=== PATIENT | female | born 1995 | race Caucasian/White ===

== ENCOUNTER 2019-12-19 13:51 | Outpatient (RCR) | payer OTHER, SELFPAY | END 2020-03-04 11:36 | disposition home or self-care (01) | LOC: ANHDMC 13:51 | PROVIDERS: PCP Pediatrics; Visit Provider Nurse Practitioner Family | DX: E11.65 Type 2 diabetes mellitus with hyperglycemia (principal); Z71.89 Other specified counseling | CPT/HCPCS: G0108 ==

== ENCOUNTER → 2020-09-04 03:24 | Outpatient (CLI) | payer OTHER, SELFPAY ==
[2020-09-04 18:26] LABS: SARS-CoV-2 RNA PCR Negative
== END ==
PROVIDERS: PCP Nurse Practitioner Family; Visit Provider Obstetrics & Gynecology
DX: Z01.812 Encounter for preprocedural laboratory examination (principal); Z20.822 Contact with and (suspected) exposure to COVID-19
CPT/HCPCS: C9803; U0003; U0005

== ENCOUNTER 2020-09-06 01:49 | Day surgery (SDC) | payer OTHER, BC, SELFPAY ==
[2020-09-03 12:28] VITALS: BMI 32.9
--- NOTE | 2020-09-06 11:10 | ECG_ITS ---
Measurements Intervals [place] Rate: 85 P: 25 CT: 126 QRS: 61 QRSD: 74 T: -4 QT: 369 QTc: 440 Interpretive Statements SINUS RHYTHM LOW QRS VOLTAGE IN PRECORDIAL LEADS BORDERLINE ST-T WAVE ABNORMALITY- ANT/INF LEADS BASELINE ARTIFACT- I, II, III, AVR, AVL, AVF, V1-V2 BORDERLINE ECG Electronically Signed On 09-06-2020 11:47:30 CDT by Jesus Reilly D.O.
[2020-09-06 11:14] VITALS: BMI 32.5
[2020-09-06 11:15] VITALS: BP 120/70; PULSE 92; RESP 16; TEMP 36.6; O2SAT 100
[2020-09-06] MEDS: LACTATED RINGERS 1,000 ML 30 ML IV CONT (11:32)
[2020-09-06] MEDS: ACETAMINOPHEN 500 MG TABLET 1000 MG PO (11:43)
[2020-09-06 12:04] LABS: Anion Gap 6 mmol/L (8-16); Blood Urea Nitrogen 6 mg/dL (7-17); Calcium 9.6 mg/dL (8.4-10.2); Carbon Dioxide 26 mmol/L (22-30); Chloride 106 mmol/L (98-107); Estimated Glomerular Filt Rate > 60; Glucose 105 mg/dL (65-105); Potassium 3.8 mmol/L (3.4-5.0); Sodium 138 mmol/L (137-145)
--- NOTE | 2020-09-06 12:21 | P.PNAN_ITS ---
Anes - Initial Pre Proc Eval Procedure: Operation Date: 09/06/20 13:00 Proposed Procedures p Suction Dilatation and Curettage - Mallory Abdalla MD Date/Time: 09/06/20 12:21 Surgeon: Mallory Abdalla MD Pre Op Diagnosis: missed AB Patient Data Age: 25 Gender: F Height: 4 ft 11 in Weight: 73.2 kg Last Vital Signs Temp 36.6 C 09/06/20 11:15 Pulse 92 09/06/20 11:15 Resp 16 09/06/20 11:15 BP 120/70 09/06/20 11:15 Pulse Ox 100 09/06/20 11:15 Allergies Allergy/AdvReac Type Severity Reaction Status Date / Time No Known Allergies Allergy Verified 09/06/20 11:02 Home Medications Medication Instructions Recorded Confirmed Type metformin 500 mg PO DAILY 09/03/20 09/06/20 History Laboratory Tests 09/06/20 11:35 Sodium 138 mmol/L mmol/L (137-145) Potassium 3.8 mmol/L mmol/L (3.4-5.0) Chloride 106 mmol/L mmol/L (98-107) Carbon Dioxide 26 mmol/L mmol/L (22-30) Anion Gap 6 mmol/L L mmol/L (8-16) BUN 6 mg/dL L mg/dL (7-17) Creatinine 0.50 mg/dL L mg/dL (0.7-1.0) Estim Creat Clear Calc Not Reportable Estimated GFR > 60 (59 - ) Glucose 105 mg/dL mg/dL (65-105) Calcium 9.6 mg/dL mg/dL (8.4-10.2) Patient hx anesthesia problems: none Family hx anesthesia problems: none [facility] Past Medical History Medical History (Updated 09/06/20 @ 12:21 by George Barajas MD) Missed ab Obesity Social History Social History Smoking status: Never smoker Alcohol intake: never Substance use: never Substance use type: does not use Living arrangements: with family Spiritual care concerns: No Anes - Eval Final PreProcedure Day of Procedure 09/06/20 12:21 Patient weight: obese Heart: regular rate and rhythm Lungs: clear to auscultation Airway: Mallampati scale class II Neurological: alert and oriented Last oral intake: >/= 8 hours ASA classification: II Emergent: no Anesthetic plan: proceed Anesthesia type and monitoring: general GIVS and standard monitoring Informed Consent: The patient's anesthetic plan and its attendant risks and benefits were discussed with the patient/family/POA. Questions were solicited and answers provided to the satisfaction of the patient/family/POA.
--- NOTE | 2020-09-06 12:53 | P.HP_ITS ---
H&P: HPI History of Present Illness Date/Time: 09/06/20 12:53 Chief Complaint: miscarriage Narrative: Yolanda is a 25yo at 10 weeks by LMP and 6w1d on US this week and last week with no FHT on either. Desires mgt with D and C. Has DM2, metformin. Review of Systems Review of Systems: All systems reviewed & are unremarkable except as noted in HPI and below PMFSH Past Medical History Medical History (Updated 09/06/20 @ 12:21 by George Barajas MD) Missed ab Obesity Social History Social History Smoking status: Never smoker Alcohol intake: never Substance use: never Substance use type: does not use Living arrangements: with family Spiritual care concerns: No Meds Home Medications and Allergies Home Medications Medication Instructions Recorded Confirmed Type metformin 500 mg PO DAILY 09/03/20 09/06/20 History Allergies Allergy/AdvReac Type Severity Reaction Status Date / Time No Known Allergies Allergy Verified 09/06/20 11:02 Vital Signs Vital Signs - 24 hr 09/06/20 11:15 Temperature 97.8 F Pulse Rate 92 Respiratory Rate 16 Blood Pressure 120/70 Pulse Oximetry 100 Exam Const: General: no acute distress Resp: Effort & Inspection: normal respiratory effort Auscultation: clear to auscultation bilaterally Cardio: Rate: regular rate Rhythm: regular rhythm GI: GI Palp: Yes Soft to palpation Extrem: General: normal to inspection H&P: Results Labs Labs: [facility] 09/06/20 11:35 Sodium 138 Potassium 3.8 Chloride 106 Carbon Dioxide 26 BUN 6 L Creatinine 0.50 L Glucose 105 Calcium 9.6 Assessment and Plan Additional Plan Rh pos WIll proceed with suction D and C. Discussed RBA, consented. All questions answered.
--- NOTE | 2020-09-06 12:57 | WPDHPUPDATE1 ---
History and Physical Update Update Date/Time: 09/06/20 12:57 History and Physical has been reviewed, including an updated exam of the patient. There are NO changes in the patient's condition. Risks, benefits, and alternatives have been discussed and questions answered. Patient agrees to proceed with procedure.
[2020-09-06] MEDS: BUPIVACAINE/EPINEPHRINE 0.25% 50 ML VIAL 10 ML INFILTRATE (13:12)
[2020-09-06] MEDS: KETOROLAC 30 MG/ML VIAL (*BKC) IV PUSH (13:14)
[2020-09-06 13:25] VITALS: BP 91/40; PULSE 96; RESP 16; O2SAT 100
--- NOTE | 2020-09-06 13:27 | PM.PROC ---
Procedure Note - Detailed Date of procedure: 09/06/20 Pre-op diagnosis: missed AB Post-op diagnosis: same Procedure performed: suction D and C Description of procedure: The patient was taken to the operating room where she received MAC anesthesia. She was placed in dorsal lithotomy position in stirrups. Exam under anesthesia revealed normal anteverted uterus, 7 week size. She was prepped and draped in normal fashion. A speculum was placed and the cervix was grasped with a single tooth tenaculum. 10cc of lidocaine was instilled in a paracervical block. The cervix was sequentially dilated to accomodate a #7 curved suction curette. Several passes were made until 3 passes obtained no further tissue. The specimen was sent to pathology. The tenaculum was removed and the cervix made hemostatic with pressure. THe speculum was removed. The patient was awakened from anesthesia and taken to the recovery room in good condition. Anesthesia: MAC Surgeon: Mallory Abdalla MD Drains: No Packing: No Pathology: yes Complications: No immediate complications Condition: stable Disposition: same day Findings: EBL 10cc
[2020-09-06 13:41] LABS: Glucose Point of Care 91 (65-105)
[2020-09-06 13:55] VITALS: BP 90/61; PULSE 65; RESP 16
[2020-09-06 14:20] VITALS: BP 103/54; PULSE 77; RESP 16
== END 2020-09-06 14:30 | disposition home or self-care (01) ==
PROVIDERS: Anesthesiology; PCP Nurse Practitioner Family; Visit Provider Obstetrics & Gynecology
PROC: (CPT 59820; principal; 2020-09-06 13:00)
DX: O02.1 Missed abortion (principal); N85.4 Malposition of uterus; Z79.84 Long term (current) use of oral hypoglycemic drugs; E66.9 Obesity, unspecified; Z68.32 Body mass index [BMI] 32.0-32.9, adult
CPT/HCPCS: 59820; 36415; 80048; 82948; 85461; 88305; 93005; A9270; C9803; J1885; J2250; J2405; J2704; J3010; J7120; U0003; U0005

== ENCOUNTER 2021-10-31 06:50 | Inpatient (IN) | payer OTHER, BC, SELFPAY ==
[2021-10-31] VITALS (61 sets, daily range): BP systolic 92–130; BP diastolic 46–91; PULSE 53–120; RESP 12–17; TEMP 36.2–36.8; O2SAT 87–100; BMI 36.8
--- NOTE | 2021-10-31 06:34 | P.PNAN_ITS ---
Anes - Initial Pre Proc Eval Procedure: Operation Date: 10/31/21 09:00 Proposed Procedures p Primary Section - Mallory Abdalla MD Date/Time: 10/31/21 06:34 Surgeon: Mallory Abdalla MD Pre Op Diagnosis: Patient Data Age: 26 Gender: F Height: Weight: Allergies Allergy/AdvReac Type Severity Reaction Status Date / Time No Known Allergies Allergy Verified 09/06/20 11:02 Home Medications Medication Instructions Recorded Confirmed Type metformin 500 mg tablet,extended 1,000 mg PO BID 09/03/20 10/31/21 History release 24 hr insulin NPH isoph U-100 human 100 18 unit subcut HS 10/16/21 10/31/21 History unit/mL subcutaneous suspension (Humulin N NPH U-100 Insulin (isophane susp)) vit no.95-ferrous 1 tablet PO DAILY 10/16/21 10/31/21 History fumarate 28 mg-folic acid 800 mcg tablet () Patient hx anesthesia problems: none Family hx anesthesia problems: none Results Review: All pre-operative results and documents have been reviewed as part of the pre- operative evaluation. [facility] Past Medical History Medical History (Updated 10/31/21 @ 08:40 by Francisco J Carey DO) DM2 (diabetes mellitus, type 2) Missed ab Obesity Family History Family History (Updated 10/16/21 @ 15:27 by Ricco Ndiaye RN) Other No pertinent family history Social History Social History Smoking status: Never smoker Second hand tobacco smoke exposure: No Alcohol intake: never Substance use: never Substance use type: does not use Spiritual care concerns: No Anes - Eval Final PreProcedure Day of Procedure 10/31/21 06:34 Patient weight: obese Heart: regular rate and rhythm Lungs: clear to auscultation and normal air movement Airway: Mallampati scale class II Neurological: alert and oriented Last oral intake: >/= 8 hours ASA classification: III Emergent: no Anesthetic plan: proceed Anesthesia type and monitoring: regional spinal and standard monitoring Results Review: All pre-operative results and documents have been reviewed as part of the pre- operative evaluation. Informed Consent: The patient's anesthetic plan and its attendant risks and benefits were discussed with the patient/family/POA. Questions were solicited and answers provided to the satisfaction of the patient/family/POA.
--- NOTE | 2021-10-31 06:50 | LDADM ---
This patient, Yolanda Troncoso, was admitted to Labor/Delivery/Recovery 119 on 10/31/21 at 06:50. Plans for labor, pain management and were discussed with patient. Patient/family oriented to hospital policies and general routines including ID bracelet, bed and alarms, visiting hours, pain management, procedures, bathroom and other care routines, personal items, smoking policy, room service/diet and guest tray routines, infant security routines, and visiting hours. Patient/Family are encouraged to report perceived risks to care and to ask questions if they do not understand what they are told or what they should do. See OBIX for further documentation.
--- OUTSIDE RECORDS SUMMARY | 2021-10-31 06:57 | XMS_ITS | Encounter Summary ---
:1995 Author Care Team Providers Name Role Phone Briseida Quesada [facility] Primary Care Provider [phone] Reason for Visit NST [id number] EDC 11/14/2021 Assessment and Plan 1. Gestational diabetes mellitus, class A>2< ? non-stress test Discussion Note: None recorded.Patient educational handouts: No information available. Plan of Care Reminders Provider Appointments Surg Post Op 11/05/2021 2:45PM Mallory Abdalla MD Lab None recorded. ? ? Referral None recorded. ? ? Procedures None recorded. ? ? Surgeries None recorded. ? ? Imaging Non-stress Test 10/23/2021 [place] Medications Name Start Date ? ? FreeStyle Nevin 14 Day Sensor kit ? Humulin N NPH U-100 Insulin (isophane susp) 100 unit/m L subcutaneous ? insulin syringe U-100 with needle 1 mL 31 gauge x 5/16 ? metformin ER 500 mg 24 hr tablet,extended release ? Take 1 tablet twice a day by oral route. metformin ER 500 mg tablet,extended release 24 hr ? TAKE 2 TABLET TWICE A DAY 28 mg iron-800 mcg tablet ? Take 1 tablet every day by oral route. Medications Administered None recorded. Vitals Height Weight BMI Blood Pressure 5 ft 182 lbs 35.5 kg/m2 123/81 mm[Hg] Results Lab Results None recorded. Allergies Code Code System Name Reaction Severity Onset NKDA ? ? ? Problems Name Status Onset Date Source ? Pre-existing Type 2 Diabetes Mellitus in Active 08/27/2020 ? Active 05/13/2021 ? Group B Streptococcus Carrier Active 10/24/2021 ? Type 2 Diabetes Mellitus Active ? ?
--- OUTSIDE RECORDS SUMMARY | 2021-10-31 06:57 | XMS_ITS | Encounter Summary ---
:1995 Author Care Team Providers Name Role Phone Briseida Quesada [facility] Primary Care Provider [phone] Reason for Visit None recorded. Assessment and Plan 1. Pre-existing type 2 diabetes mellitu s in ? non-stress test Discussion Note: None recorded.Patient educational handouts: No information available. Plan of Care Reminders Provider Appointments Surg Post Op 11/05/2021 2:45PM Mallory Abdalla MD Lab None recorded. ? ? Referral None recorded. ? ? Procedures None recorded. ? ? Surgeries None recorded. ? ? Imaging Non-stress Test 10/20/2021 [place] Medications Name Start Date ? ? FreeStyle Nevin 14 Day Sensor kit ? Humulin N NPH U-100 Insulin (isophane susp) 100 unit/m L subcutaneous ? insulin syringe U-100 with needle 1 mL 31 gauge x /16 ? metformin ER 500 mg 24 hr tablet,extended release ? Take 1 tablet twice a day by oral route. metformin ER 500 mg tablet,extended release 24 hr ? TAKE 2 TABLET TWICE A DAY 28 mg iron-800 mcg tablet ? Take 1 tablet every day by oral route. Medications Administered None recorded. Vitals Height Weight BMI Blood Pressure 5 ft 184 lbs 35.9 kg/m2 121/78 mm[Hg] Results Lab Results None recorded. Allergies Code Code System Name Reaction Severity Onset NKDA ? ? ? Problems Name Status Onset Date Source ? Pre-existing Type 2 Diabetes Mellitus in Active 08/27/2020 ? Active 05/13/2021 ? Group B Streptococcus Carrier Active 10/24/2021 ? Type 2 Diabetes Mellitus Active ? ?
--- OUTSIDE RECORDS SUMMARY | 2021-10-31 06:57 | XMS_ITS ---
:1995 Author Care Team Providers Name Role Phone YULY ACEVEDO [facility]- Primary Care Provider [phone] Allergies Code Code System Name Reaction Severity Status Onset NKDA ? Medications Name Status Start Date Stop Date ? ? atorvastatin 10 mg tablet Completed ? 2020 FreeStyle Nevin 14 Day Sensor kit Active ? Not available Humulin N NPH U-100 Insulin (isophane susp) 100 Active ? Not available unit/mL subcutaneous insulin syringe U-100 with needle 1 mL 31 gauge Active ? Not available x 09/29 FE 06/05 (28) 1 mg-20 mcg (21)/75 mg (7) tablet Completed 05/18/2019 08/26/2020 TAKE 1 TABLET BY ORAL ROUTE EVERY DAY metformin ER 500 mg 24 hr tablet,extended release Active ? Not available Take 1 tablet twice a day by oral route. metformin ER 500 mg tablet,extended release 24 Active ? Not available hr nitrofurantoin monohydrate/macrocrystals 100 mg Completed ? 06/10/2021 capsule 28 mg iron-800 mcg tablet Active ? Not available Vitamin 27 mg iron-0.8 mg tablet Completed ? 09/02/2020 Problems Name Status Onset Date Source ? Test Negative Unknown 03/13/2015 History Education Unknown 03/13/2015 History Breast Lump Unknown 06/26/[address] Concept Unknown 03/17/[address] Concept Unknown 05/11/2018 History Pre-existing Type 2 Diabetes Mellitus in Active 08/27/2020 ? Uncertain Viability of Unknown 08/27/2020 ? Active 05/13/2021 ? Group B Streptococcus Carrier Active 10/24/2021 ? Type 2 Diabetes Mellitus Active
--- OUTSIDE RECORDS SUMMARY | 2021-10-31 06:57 | XMS_ITS | Encounter Summary ---
:1995 Author Care Team Providers Name Role Phone Briseida Quesada [facility] Primary Care Provider [phone] Reason for Visit OB visit Assessment and Plan 1. Breech presentation ? section (SURG) 2. Pre-existing type 2 diabetes mellitu s in Discussion Note: None recorded.Patient educational handouts: No information available. Plan of Care Reminders Provider Appointments Surg Post Op 11/05/2021 2:45PM Mallory Abdalla MD Lab None recorded. ? ? Referral None recorded. ? ? Procedures None recorded. ? ? Surgeries Section (SURG) 10/31/2021 [facility] [facility] None recorded. ? ? Medications Name Start Date ? ? FreeStyle Nevin 14 Day Sensor kit ? Humulin N NPH U-100 Insulin (isophane susp) 100 unit/m L subcutaneous ? insulin syringe U-100 with needle 1 mL 31 gauge x 09/29 ? metformin ER 500 mg 24 hr [...] Pressure 5 ft 182 lbs 35.5 kg/m2 124/79 mm[Hg] Results Lab Results None recorded. Allergies Code Code System Name Reaction Severity Onset NKDA ? ? ? Problems Name Status Onset Date Source ? Pre-existing Type 2 Diabetes Mellitus in Active 08/27/2020 ? Active 05/13/2021 ?
--- OUTSIDE RECORDS SUMMARY | 2021-10-31 06:57 | XMS_ITS | Encounter Summary ---
:1995 Author Care Team Providers Name Role Phone Briseida Quesada [facility] Primary Care Provider [phone] Reason for Visit NST [id number] EDC 11/14/2021 Assessment and Plan 1. Gestational diabetes mellitus, class A>1< ? non-stress test Discussion Note: None recorded.Patient educational handouts: No information available. Plan of Care Reminders Provider Appointments Surg Post Op 11/05/2021 2:45PM Mallory Abdalla MD Lab None recorded. ? ? Referral None recorded. ? ? Procedures None recorded. ? ? Surgeries None recorded. ? ? Imaging Non-stress Test 10/28/2021 [place] Medications Name Start Date ? ? FreeStyle [...] Pressure 5 ft 182 lbs 35.5 kg/m2 128/78 mm[Hg] Results Lab Results None recorded. Allergies Code Code System Name Reaction Severity Onset NKDA ? ? ? Problems Name Status Onset Date Source ? Pre-existing Type 2 Diabetes Mellitus in Active 08/27/2020 ? Active 05/13/2021 ? Group B Streptococcus Carrier Active 10/24/2021 ? Type 2 Diabetes Mellitus Active ? ?
--- OUTSIDE RECORDS SUMMARY | 2021-10-31 06:57 | XMS_ITS | Encounter Summary ---
:1995 Author Care Team Providers Name Role Phone Briseida Quesada [facility] Primary Care Provider [phone] Reason for Visit None recorded. Assessment and [...] None recorded. ? ? Imaging Non-stress Test 10/17/2021 [place] Medications Name Start Date ? ? FreeStyle [...] oral route. Medications Administered None recorded. Vitals None recorded. Results Lab Results None recorded. Allergies Code Code System Name Reaction Severity Onset NKDA ? ? ? Problems Name Status Onset Date Source ? Pre-existing Type 2 Diabetes Mellitus in Active 08/27/2020 ? Active 05/13/2021 ? Group B Streptococcus Carrier Active 10/24/2021 ? Type 2 Diabetes Mellitus Active ? ? Breech Presentation Active ? ? Marginal Insertion of Umbilical Cord Active ? ?
--- OUTSIDE RECORDS SUMMARY | 2021-10-31 06:57 | XMS_ITS | Encounter Summary ---
:1995 Author Care Team Providers Name Role Phone Briseida Quesada [facility] Primary Care Provider [phone] Reason for Visit OB visit Assessment and Plan 1. Breech presentation 2. Pre-existing type 2 diabetes mellitu s in Discussion Note: None recorded.Patient educational handouts: No information available. Plan of Care Reminders Provider Appointments Surg Post Op 11/05/2021 2:45PM Mallory Abdalla MD Lab None recorded. ? ? Referral None recorded. ? ? Procedures None recorded. ? ? Surgeries None recorded. ? ? Imaging None recorded. ? ? Medications Name [...] Pressure 5 ft 184 lbs 35.9 kg/m2 116/77 mm[Hg] Results Lab Results None recorded. Allergies Code Code System Name Reaction Severity Onset NKDA ? ? ? Problems Name Status Onset Date Source ? Pre-existing Type 2 Diabetes Mellitus in Active 08/27/2020 ? Active 05/13/2021 ? Group B Streptococcus Carrier Active 10/24/2021 ? Type 2 Diabetes Mellitus Active ? ?
--- OUTSIDE RECORDS SUMMARY | 2021-10-31 06:57 | XMS_ITS | Encounter Summary ---
:1995 Author Care Team Providers Name Role Phone Briseida Quesada [facility] Primary Care Provider [phone] Reason for Visit None recorded. Assessment and Plan 1. Marginal insertion of umbilical cord ? US, obstetric, follow-up Discussion Note: None recorded.Patient educational handouts: No information available. Plan of Care Reminders Provider Appointments Surg Post Op 11/05/2021 2:45PM Mallory Abdalla MD Lab None recorded. ? ? Referral None recorded. ? ? Procedures None recorded. ? ? Surgeries None recorded. ? ? Imaging US, Obstetric, 10/20/2021 [place] Follow-up Medications Name Start Date ? ? FreeStyle [...] ? Breech Presentation Active ? ? Marginal [place]
--- OUTSIDE RECORDS SUMMARY | 2021-10-31 06:57 | XMS_ITS | Encounter Summary ---
:1995 Author Care Team Providers Name Role Phone Briseida Quesada [facility] Primary Care Provider [phone] Reason for Visit OB visit and pre-op Assessment and Plan 1. Pre-existing type 2 diabetes mellitu s in ? glucose, blood Discussion Note: None recorded.Patient educational handouts: No information available. Plan of Care Reminders Provider Appointments Surg Post Op 11/05/2021 2:45PM Mallory Abdalla MD Lab Glucose, Blood 10/28/2021 [facility] (Lab) Referral None recorded. ? ? Procedures None [...] 35.5 kg/m2 128/78 mm[Hg] Results Lab Results Date Name Specimen Result Interpretation Description Value Range Status Address ? 10/28/2021 Glucose, Low Glucose 64 mg/dL 70-100 Final [facility]: 25 Blood mg/dL N Dexter Bowman, Sherrell rojas Allergies Code Code System Name Reaction Severity Onset
--- OUTSIDE RECORDS SUMMARY | 2021-10-31 06:58 | XMS_ITS | Encounter Summary ---
:1995 Author Care Team Providers Name Role Phone Brisieda Quesada [facility] Primary Care Provider [phone] Reason for Visit NST [id number] EDC 11/14/2021 Assessment and Plan 1. Gestational diabetes mellitus, class A>1< ? non-stress test Discussion Note: None recorded.Patient educational handouts: No information available. Plan of Care Reminders Provider Appointments Surg Post Op 11/05/2021 2:45PM Mallory Abdalla MD Lab None recorded. ? ? Referral None recorded. ? ? Procedures None recorded. ? ? Surgeries None recorded. ? ? Imaging Non-stress Test 10/06/2021 [place] Medications Name Start Date ? ? FreeStyle [...] Height Weight BMI Blood Pressure 5 ft 180 lbs 35.2 kg/m2 117/74 mm[Hg] Results Lab Results None recorded. Allergies Code Code System Name Reaction Severity Onset NKDA ? ? ? Problems Name Status Onset Date Source ? Pre-existing Type 2 Diabetes Mellitus in Active 08/27/2020 ? Active 05/13/2021 ? Group B Streptococcus Carrier Active 10/24/2021 ? Type 2 Diabetes Mellitus Active ? ?
--- OUTSIDE RECORDS SUMMARY | 2021-10-31 06:58 | XMS_ITS ---
:1995 Author Care Team Providers Name Role Phone Briseida Quesada Primary Care Provider Unavailable Allergies Code Code System Name Reaction Severity Status Onset NKDA ? Medications Name Status Start Date Stop Date ? ? Alcohol Prep Pads Active ? Not available Use as directed to cleanse skin prior to blood glucose checks. atorvastatin 10 mg tablet Active ? Not av ailable [place] Fe 06/05 (28) 1 mg-20 mcg (21)/75 mg (7) tablet Active ? Not available metformin ER 500 mg tablet,extended release 24 hr Active ? Not available OneTouch Delica Plus Lancet 33 gauge Active ? Not available OneTouch Ultra Blue Test Strip Active ? N ot available OneTouch Ultra2 Meter Active ? Not availa ble Vitamin 27 mg iron-0.8 mg tablet Active ? Not available Take 1 tablet every day by oral route. Problems Name Status Onset Date Source ? Hyperglycemia Due to Type 2 Diabetes Mellitus Active History Procedures None recorded. Results Lab Results None recorded. Past Encounters 10/22/2021 Hyperglycemia Due to Type 2 Diabetes Lianna litus; Briseida Quesada, TELLO: [address], [place] [address], Ph. 07/26/2020 Hyperglycemia Due to Type 2 Diabetes Lianna litus; TELLO [place]: [address] [place] [address], Ph. Social History Tobacco Smoking Status Never Smoker Vaccine List None recorded. Plan of Care Reminders Provider Appointments None recorded. ? ? Lab None recorded. ? ? Referral None recorded. ?
--- OUTSIDE RECORDS SUMMARY | 2021-10-31 06:58 | XMS_ITS | Encounter Summary ---
:1995 Author Care Team Providers Name Role Phone Briseida Quesada [facility] Primary Care Provider [phone] Reason for Visit None recorded. Assessment and Plan 1. Gestational diabetes mellitus, class A>1< ? non-stress test Discussion Note: None recorded.Patient educational handouts: No information available. Plan of Care Reminders Provider Appointments Surg Post Op 11/05/2021 2:45PM Mallory Abdalla MD Lab None recorded. ? ? Referral None recorded. ? ? Procedures None recorded. ? ? Surgeries None recorded. ? ? Imaging Non-stress Test 10/09/2021 [place] Medications Name Start Date ? ? FreeStyle [...]
--- OUTSIDE RECORDS SUMMARY | 2021-10-31 06:58 | XMS_ITS | Encounter Summary ---
:1995 Author Care Team Providers Name Role Phone Briseida Quesada [facility] Primary Care Provider [phone] Reason for Visit None recorded. Assessment and Plan 1. Pre-existing type 2 diabetes mellitu s in ? US, obstetric, follow-up Discussion Note: None recorded.Patient educational handouts: No information available. Plan of Care Reminders Provider Appointments Surg Post Op 11/05/2021 2:45PM Mallory Abdalla MD Lab None recorded. ? ? Referral None recorded. ? ? Procedures None recorded. ? ? Surgeries None recorded. ? ? Imaging US, Obstetric, 08/26/2021 [place] Follow-up Medications Name Start Date ? ? [...]
--- OUTSIDE RECORDS SUMMARY | 2021-10-31 06:58 | XMS_ITS | Encounter Summary ---
:1995 Author Care Team Providers Name Role Phone Briseida Quesada [facility] Primary Care Provider [phone] Reason for Visit None recorded. Assessment and Plan 1. Gestational diabetes mellitus, class A>1< ? non-stress test Discussion Note: None recorded.Patient educational handouts: No information available. Plan of Care Reminders Provider Appointments Surg Post Op 11/05/2021 2:45PM Mallory Abdalla MD Lab None recorded. ? ? Referral None recorded. ? ? Procedures None recorded. ? ? Surgeries None recorded. ? ? Imaging Non-stress Test 10/03/2021 [place] Medications Name Start Date ? ? FreeStyle [...]
--- OUTSIDE RECORDS SUMMARY | 2021-10-31 06:58 | XMS_ITS | Encounter Summary ---
:1995 Author Reason for Visit TeleHealth Visit annual visit Assessment and Plan Assessment Note Service was provided using telemedicine . Patient verbally consents to telemedicine services. The patient verbally consents to using virtual check-in and the consent is documented in the medical record prior to using the service. Patient is located at home. Provider is located at [place] off [place]. Names and roles of all persons particip ating in telemedicine services include Briseida Quesada (provider), Yolanda Nisha (patient). The patient had a 6 minute TeleMedicine consultation via Power [employer] to discuss the followin. Hyperglycemia due to type 2 diabetes mellitus Unknown status A1C 7.0 (10/2019) Continue with CGM as directed. Sensor re fill sent to mail order pharmacy. Discussed need for regular exercise, inc rease intake of water/vegetables/fiber. Decrease intake of carbs, especially white rice/pasta/flour/bread/sugar. ? FreeStyle [place] 14 Day Sensor kit 2. Per pt report Scheduled for next week d/t br eech presentation. Continue to hold atorvastatin during pre gnancy Discussion Note Due to the COVID-19 (Novel Coronavirus) pandemic, it is within this context (and with the understanding that this method of patient encounter is in the patient?s best interest as well as the heal th and safety of other patients and the public) that ?telehealth? is being provided for this patient encounter rather than a [id number] visit. This patient encounter is appropriate at th is time. This patient has been advised o f the potential risks and limitations of this mode of treatment (including, but not limited to, the absence of in-person examination) and has agreed to be treated in a remote fashion despite these risks . Any and all of the patient?s/patient?s
--- OUTSIDE RECORDS SUMMARY | 2021-10-31 06:58 | XMS_ITS | Encounter Summary ---
:1995 Author Care Team Providers Name Role Phone Briseida Quesada [facility] Primary Care Provider [phone] Reason for Visit None recorded. Assessment and [...] None recorded. ? ? Imaging US, Obstetric, 09/25/2021 [place] Follow-up Medications Name Start Date ? ? [...]
--- OUTSIDE RECORDS SUMMARY | 2021-10-31 06:58 | XMS_ITS | Encounter Summary ---
:1995 Author Care Team Providers Name Role Phone Briseida Quesada [facility] Primary Care Provider [phone] Reason for Visit None recorded. Assessment and Plan 1. Gestational diabetes mellitus, class A>2< ? non-stress test Discussion Note: None recorded.Patient educational handouts: No information available. Plan of Care Reminders Provider Appointments Surg Post Op 11/05/2021 2:45PM Mallory Abdalla MD Lab None recorded. ? ? Referral None recorded. ? ? Procedures None recorded. ? ? Surgeries None recorded. ? ? Imaging Non-stress Test 09/29/2021 [place] Medications Name Start Date ? ? FreeStyle [...]
--- OUTSIDE RECORDS SUMMARY | 2021-10-31 06:58 | XMS_ITS | Encounter Summary ---
:1995 Author Care Team Providers Name Role Phone Briseida Quesada [facility] Primary Care Provider [phone] Reason for Visit None recorded. Assessment and [...] None recorded. ? ? Imaging Non-stress Test 10/14/2021 [place] Medications Name Start Date ? ? FreeStyle [...]
--- OUTSIDE RECORDS SUMMARY | 2021-10-31 06:58 | XMS_ITS | Encounter Summary ---
:1995 Author Care Team Providers Name Role Phone Briseida Quesada [facility] Primary Care Provider [phone] Reason for Visit OB visit 28w4d Assessment and Plan 1. Pre-existing type 2 diabetes mellitu s in 2. Marginal insertion of umbilical cord Discussion Note: None recorded.Patient educational handouts: No [...] Height Weight BMI Blood Pressure 5 ft 165 lbs 32.2 kg/m2 118/77 mm[Hg] Results Lab Results None recorded. Allergies Code Code System Name Reaction Severity Onset NKDA ? ? ? Problems Name Status Onset Date Source ? Pre-existing Type 2 Diabetes Mellitus in Active 08/27/2020 ? Active 05/13/2021 ? Group B Streptococcus Carrier Active 10/24/2021 ? Type
--- OUTSIDE RECORDS SUMMARY | 2021-10-31 06:58 | XMS_ITS | Encounter Summary ---
:1995 Author Care Team Providers Name Role Phone Briseida Quesada [facility] Primary Care Provider [phone] Reason for Visit None recorded. Assessment and Plan 1. Gestational diabetes mellitus, class A>2< ? non-stress test Discussion Note: None recorded.Patient educational handouts: No information available. Plan of Care Reminders Provider Appointments Surg Post Op 11/05/2021 2:45PM Mallory Abdalla MD Lab None recorded. ? ? Referral None recorded. ? ? Procedures None recorded. ? ? Surgeries None recorded. ? ? Imaging Non-stress Test 09/22/2021 [place] Medications Name Start Date ? ? FreeStyle [...]
--- OUTSIDE RECORDS SUMMARY | 2021-10-31 06:58 | XMS_ITS | Encounter Summary ---
:1995 Author Care Team Providers Name Role Phone Briseida Quesada [facility] Primary Care Provider [phone] Reason for Visit None recorded. Assessment and Plan Assessment Note Insulin Teaching 1. Gestational diabetes mellitus, class A>2< Pt here for insulin teaching. Insulin t eaching completed and return demonstration appropriate. Pt instructed on subq insul in administration and administration sites. Pt instructed on cleaning insulin vial a nd insulin administration site with alcohol swab, instructed on how to draw up insul in and verify amount in syringe, and finally how to administer insulin. Pt verbalized understanding of information and provided return demonstration. Pt's insulin rx an d supplies were previous called to her pharmacy. Pt will call after administeri ng insulin for several nights at bedtime so fasting blood sugars can be reviewed. Nv arpan Lord RN Discussion Note: None recorded.Patient educational handouts: No [...]
--- OUTSIDE RECORDS SUMMARY | 2021-10-31 06:58 | XMS_ITS | Encounter Summary ---
:1995 Author Care Team Providers Name Role Phone Briseida Quesada [facility] Primary Care Provider [phone] Reason for Visit OB visit Assessment and Plan 1. Pre-existing type 2 [...] Height Weight BMI Blood Pressure 5 ft 172 lbs 33.6 kg/m2 122/75 mm[Hg] Results Lab Results None recorded. Allergies Code Code System Name Reaction Severity Onset NKDA ? ? ? Problems Name Status Onset Date Source ? Pre-existing Type 2 Diabetes Mellitus in Active 08/27/2020 ? Active 05/13/2021 ? Group B Streptococcus Carrier Active 10/24/2021 ? Type 2 Diabetes Mellitus Active ? ? Breech Presentation Active ? ?
--- OUTSIDE RECORDS SUMMARY | 2021-10-31 06:58 | XMS_ITS | Encounter Summary ---
:1995 Author Care Team Providers Name Role Phone Briseida Quesada [facility] Primary Care Provider [phone] Reason for Visit OB visit Assessment and [...] oral route. Medications Administered None recorded. Vitals Weight Blood Pressure 174 lbs 120/76 mm[Hg] Results Lab Results None recorded. Allergies Code Code System Name Reaction Severity Onset NKDA ? ? ? Problems Name Status Onset Date Source ? Pre-existing Type 2 Diabetes Mellitus in Active 08/27/2020 ? Active 05/13/2021 ? Group B Streptococcus Carrier Active 10/24/2021 ? Type 2 Diabetes Mellitus Active ? ? Breech Presentation Active ? ? Marginal I
--- OUTSIDE RECORDS SUMMARY | 2021-10-31 06:58 | XMS_ITS | Encounter Summary ---
:1995 Author Care Team Providers Name Role Phone Briseida Quesada [facility] Primary Care Provider [phone] Reason for Visit OB visit Assessment and [...]
--- OUTSIDE RECORDS SUMMARY | 2021-10-31 06:59 | XMS_ITS ---
[...] Ultra2 Meter Active ? Not availa ble Problems Name Status Onset Date Source ? Hyperglycemia Due to Type 2 Diabetes Mellitus Active ? Procedures None recorded. Results Lab Results Date Name Specimen Result Interpretation Description Value Range Status Address ? 04/02/2020 SARS CoV 2 ? Sars report ? Final [place] RNA Coronavirus 2 [place] (COVID-19), (Covid-19) M joseph QL, owner oral surgeon-PCR, [facility] Respiratory (Lab) : [address] Specimen Kacie Gloria [place] 02/07/2020 HbA1C High Hemoglobin 8.9 % 4.0 Final [place] (Hemoglobin a1C -6. Regio nal a1C), Blood 0 % [facility]
--- NOTE | 2021-10-31 07:32 | P.HP_ITS ---
H&P: HPI History of Present Illness Date/Time: 10/31/21 07:33 Chief Complaint: DM2, breech Narrative: Yolanda is a G1 at 38.0 for primary CS for breech. Had DM2, not ideally controlled with multiple episodes of glucosuria in the office. on NPH and metformin. testing has all been good. Last few weeks her insulin requirements have decreased, prompting concern for lessening placental function. Review of Systems Review of Systems: All systems reviewed & are unremarkable except as noted in HPI and below [facility] Past Medical History Medical History (Updated 10/31/21 @ 07:35 by Mallory Abdalla MD) Missed ab Obesity Family History Family History (Updated 10/16/21 @ 15:27 by Ricco Ndiaye RN) Other No pertinent family history Social History Social History Smoking status: Never smoker Alcohol intake: never Substance use: never Substance use type: does not use Spiritual care concerns: No Meds Home Medications and Allergies Home Medications Medication Instructions Recorded Confirmed Type metformin 500 mg tablet,extended 1,000 mg PO BID 09/03/20 10/16/21 History release 24 hr insulin NPH isoph U-100 human 100 22 unit subcut HS 10/16/21 10/16/21 History unit/mL subcutaneous suspension (Humulin N NPH U-100 Insulin (isophane susp)) vit no.95-ferrous 1 tablet PO DAILY 10/16/21 10/16/21 History fumarate 28 mg-folic acid 800 mcg tablet () Allergies Allergy/AdvReac Type Severity Reaction Status Date / Time No Known Allergies Allergy Verified 09/06/20 11:02 Exam Const: General: no acute distress Resp: Effort & Inspection: normal respiratory effort Auscultation: clear to auscultation bilaterally Cardio: Rate: regular rate Rhythm: regular rhythm GI: GI Palp: Yes Soft to palpation Extrem: General: normal to inspection Assessment and Plan Assessment and plan (1) Breech presentation: Code(s): O32.1XX0 - Maternal care for breech presentation, not applicable or unspecified Status: Acute (2) DM2 (diabetes mellitus, type 2): Code(s): E11.9 - Type 2 diabetes mellitus without complications Status: Acute Additional Plan Plan primary CS Discussed RBA, pt consented, all questions answered. FHT category 1 will proceed.
[2021-10-31] MEDS: LACTATED RINGERS 1,000 ML 125 ML IV CONT ×3 (07:34→10:48)
[2021-10-31 07:45] LABS: Basophils Percent Auto 0.2 % (0.2-1.2); Eosinophils Percent Auto 0.4 % (0-4.4); Hematocrit 33.5 % (37.0-47.0); Hemoglobin 10.9 g/dL (12.0-15.0); Immature Granulocyte Absolute 0.07 K/mm3 (0.00-0.031); Immature Granulocyte Percent A 0.8 % (0-0.5); Lymphocytes Absolute Auto 2.17 K/mm3 (0.9-3.2); Mean Corpuscular HGB Conc 32.5 g/dl (32-36); Mean Corpuscular Hemoglobin 29.3 pg (26-34); Mean Corpuscular Volume 90.1 fl (80-100); Mean Platelet Volume 11.9 fl (7.4-10.4); Monocytes Absolute Auto 0.5 K/mm3 (0.1-0.6); Monocytes Percent Auto 5.9 % (2.6-8.5); Neutrophils Absolute Auto 6.2 K/mm3 (1.3-6.7); Neutrophils Percent Auto 68.7 % (45.5-73.1); Platelet Count Result 190 k/mm3 (150-375); Red Blood Count 3.72 M/mm3 (4.2-5.4)
[2021-10-31 08:10] LABS: Glucose Point of Care 68 mg/dl (65-105)
--- NOTE | 2021-10-31 08:54 | WPDHPUPDATE1 ---
History and Physical Update Update Date/Time: 10/31/21 08:54 History and Physical has been reviewed, including an updated exam of the patient. There are NO changes in the patient's Still breech on US. condition. Risks, benefits, and alternatives have been discussed and questions answered. Patient agrees to proceed with procedure.
--- NOTE | 2021-10-31 08:55 | PC.NURSE ---
Dr. Abdalla at bedside to do ultrasound for presentation. Breech presentation confirmed.
[2021-10-31] MEDS: ceFAZolin 2 GM/D5W 50 ML 2 GM/50 ML BAG IVPB (09:04)
--- NOTE | 2021-10-31 09:58 | P.PCNOB_ITS ---
OB - Delivery Note Procedure Delivery date: 10/31/21 Procedure: Procedures Operation Date: 10/31/21 09:00 <No data on this case meets the specified criteria> Primary low transverse section Events: Breech Presentation and Diabetes Mellitus Route of delivery: Specimen: Yes (placenta) Quantitative Blood Loss (ml): 603 Anesthesia type: Spinal Disposition: Floor Complications: none Narrative: The patient was taken to the OR and had her epidural anesthesia dosed adequately. She was placed in dorsal supine position with left lateral tilt. SCDs and talbert had been placed. She was prepped and draped in the normal sterile fashion. A Pfannensteil skin incision was made and carried through to the underlying layer of fascia. The fascia was incised in the midline and then extended laterally using Nava scissors. The muscles were in the midline and the peritoneum was entered bluntly. The peritoneal incision was extended inferiorly and superiorly with care to avoid the bladder. The bladder blade was then inserted, the vesicouterine peritoneum was grasped, incised with Metzenbaum scissors, and a bladder flap created. The bladder blade was reinserted. A low transverse uterine incision was made with a scalpel and extended bluntly. AROM was performed and fluid was noted to be clear. The baby was delivered breech, with feet grasped and delivered first. The delivery was easy and atraumatic. The baby's oropharynx was suctioned. After 30 seconds, the cord was clamped and cut and the was handed off. Cord blood was obtained and the placenta was then removed manually. The uterus was exteriorized. A moist lap sponge was used to curette the endometrium. The uterine incision was then closed with one layer of 0-Vicryl in a running, locking fashion. Good hemostasis was noted, though uterus was atonic. Pitocin, hemabate, and methergine were given with moderate improvement in uterine tone. The posterior cul de sac was irrigated with normal saline and cleared of all clot and debris. The uterus was returned to the abdomen. Both lateral gutters were then irrigated. The rectus muscles were inspected and found to be hemostatic. The fascia was reapproximated using 0-Vicryl in running fashion. The subcutaneous tissue was irrigated with normal saline and made hemostatic with Bovie electrocautery. The skin was then closed with absorbable yves. Steri strips and a bandage were applied. The uterus was evacuated. The patient tolerated the procedure very well. All counts were correct. She was taken to the recovery room in good condition. [place] Baby Date of : 10/31/21 Time of : 09:29 Weeks of gestation at delivery: 38 gender: Male Weight (pounds): 9 Weight (ounces): 8 presentation: breech Placenta delivery description: Manual Removal Cord Vessel Description: 3 Vessels score one minute: 8 score five minutes: 9
[2021-10-31] MEDS: OXYTOCIN 30 UNITS/NS 500 ML 30 UNITS/500 ML BAG 125 UNITS IV CONT (10:48)
[2021-10-31 14:56] LABS: Glucose Point of Care 55 mg/dl (65-105)
[2021-10-31 16:45] LABS: Glucose Point of Care 112 mg/dl (65-105)
[2021-10-31] MEDS: SIMETHICONE 80 MG TAB.CHEW PO (17:00)
[2021-10-31] MEDS: DOCUSATE SODIUM 100 MG CAPSULE PO (17:00)
[2021-10-31] MEDS: IBUPROFEN 600 MG TABLET PO ×2 (17:00→22:24)
[2021-10-31] MEDS: HYDROcodone/acetaminophen (*CRX) 5-325 MG TABLET 1 TAB PO (17:01)
[2021-10-31 17:18] LABS: Rapid Plasma Reagin Non-Reactive (NonReactive)
[2021-10-31] MEDS: metFORMIN HCL XR 500 MG TAB.SR.24H 1000 MG PO (20:00)
[2021-10-31 20:23] LABS: Glucose Point of Care 148 mg/dl (65-105)
[2021-10-31] MEDS: oxyCODONE HCL (*CRX) 5 MG TAB IR PO (22:25)
[2021-11-01] MEDS: IBUPROFEN 600 MG TABLET PO ×3 (04:43→20:35)
[2021-11-01] MEDS: oxyCODONE HCL (*CRX) 5 MG TAB IR PO ×5 (04:43→20:53)
[2021-11-01 04:45] VITALS: BP 118/75; PULSE 79; RESP 16; TEMP 36.6
[2021-11-01 05:15] LABS: Hematocrit 31.2 % (37.0-47.0); Hemoglobin 10.1 g/dL (12.0-15.0); Mean Corpuscular HGB Conc 32.4 g/dl (32-36); Mean Corpuscular Hemoglobin 29.6 pg (26-34); Mean Corpuscular Volume 91.5 fl (80-100); Mean Platelet Volume 11.4 fl (7.4-10.4); Platelet Count Result 163 k/mm3 (150-375); Red Blood Count 3.41 M/mm3 (4.2-5.4); Red Cell Distribution Width 13.1 % (11.5-14.5); White Blood Count 13.6 K/mm3 (4.5-10.0)
--- NOTE | 2021-11-01 07:33 | WPDANLDNPN2 ---
Anes-Prog Note L&D-Neuraxial Date/Time: 11/01/21 07:33 Neuraxial medications: intrathecal PF morphine Opiod-related complaints: none Patient feedback: Patient satisfied with post-operative pain management.
--- NOTE | 2021-11-01 07:33 | WPDANESPN ---
Anes - Prog Note Post-Op Date/Time: 11/01/21 07:33 Cardiovascular status: normal Respiratory status: normal Airway patency: baseline Mental status: baseline Post-Op hydration status: normal Vital Signs: Last Vital Signs Temp 36.6 C 11/01/21 04:45 Pulse 79 11/01/21 04:45 Resp 16 11/01/21 04:45 BP 118/75 11/01/21 04:45 Pulse Ox 100 10/31/21 20:00 O2 Del Method Room Air 10/31/21 12:15 Pain Score (VAS): 0 I/O: Intake & Output 10/31/21 10/31/21 11/01/21 15:59 23:59 07:59 Intake Total 2050 500 1000 Output Total 1138 1350 3000 Balance 754 -498 -9996 Laboratory Tests 11/01/21 04:47 10/31/21 10/31/21 10/31/21 07:38 07:38 07:38 WBC 9.0 RBC 3.72 L Hgb 10.9 L Hct 33.5 L MCV 90.1 MCH 29.3 MCHC 32.5 RDW 13.0 Plt Count 190 MPV 11.9 H Immature Gran % (Auto) 0.8 H Neut % (Auto) 68.7 Lymph % (Auto) 24.0 [place] % (Auto) 5.9 Eos % (Auto) 0.4 Baso % (Auto) 0.2 Lymph # (Auto) 2.17 [place] # (Auto) 0.5 Eos # (Auto) 0.0 Baso # (Auto) 0.0 Abs Immat Gran (auto) 0.07 H Absolute Neuts (auto) 6.2 Absolute Nucleated RBC 0.0 Nucleated RBC % 0.0 POC Capillary Glucose RPR Non-reactive Blood Type A Positive Antibody Screen Negative 10/31/21 10/31/21 10/31/21 08:05 14:50 16:38 WBC RBC Hgb Hct MCV MCH MCHC RDW Plt Count MPV Immature Gran % (Auto) Neut % (Auto) Lymph % (Auto) [place] % (Auto) Eos % (Auto) Baso % (Auto) Lymph # (Auto) [place] # (Auto) Eos # (Auto) Baso # (Auto) Abs Immat Gran (auto) Absolute Neuts (auto) Absolute Nucleated RBC Nucleated RBC % POC Capillary Glucose 68 55 L* 112 H RPR Blood Type Antibody Screen 10/31/21 11/01/21 20:17 04:47 WBC 13.6 H RBC 3.41 L Hgb 10.1 L Hct 31.2 L MCV 91.5 MCH 29.6 MCHC 32.4 RDW 13.1 Plt Count 163 MPV 11.4 H Immature Gran % (Auto) Not Reportable Neut % (Auto) Not Reportable Lymph % (Auto) Not Reportable [place] % (Auto) Not Reportable Eos % (Auto) Not Reportable Baso % (Auto) Not Reportable Lymph # (Auto) Not Reportable [place] # (Auto) Not Reportable Eos # (Auto) Not Reportable Baso # (Auto) Not Reportable Abs Immat Gran (auto) Not Reportable Absolute Neuts (auto) Not Reportable Absolute Nucleated RBC Not Reportable Nucleated RBC % Not Reportable POC Capillary Glucose 148 H RPR Blood Type Antibody Screen Post-procedural complaints: none Patient Feedback: Patient satisfied with anesthetic care.
[2021-11-01 07:55] VITALS: BP 98/67; PULSE 94; RESP 18; TEMP 37.5; O2SAT 100
[2021-11-01] MEDS: metFORMIN HCL XR 500 MG TAB.SR.24H 1000 MG PO ×2 (08:14→17:19)
[2021-11-01] MEDS: DOCUSATE SODIUM 100 MG CAPSULE PO ×2 (08:16→17:19)
[2021-11-01] MEDS: MULTIVIT/MIN/PREN/FOL AC/IRON TABLET 1 TAB PO (08:17)
--- NOTE | 2021-11-01 08:47 | P.PNOB_ITS ---
OB - PN: Subj Subjective Date/time seen: 11/01/21 08:47 Patient comments: no complaints and pain well controlled baby status: nursing well Narrative: POD 1 from primary CS. Doing well. Normal lochia. Eating, ambulating, talbert out. BS fasting 69 this am. OB - PN: Obj Data Labs CBC & Chem 7: 11/01/21 04:47 Labs: Laboratory Results - last 24 hr 10/31/21 10/31/21 10/31/21 07:38 07:38 14:50 WBC RBC Hgb Hct MCV MCH MCHC RDW Plt Count MPV Immature Gran % (Auto) Neut % (Auto) Lymph % (Auto) [place] % (Auto) Eos % (Auto) Baso % (Auto) Lymph # (Auto) [place] # (Auto) Eos # (Auto) Baso # (Auto) Abs Immat Gran (auto) Absolute Neuts (auto) Absolute Nucleated RBC Nucleated RBC % POC Capillary Glucose 55 L* RPR Non-reactive Antibody Screen Negative 10/31/21 10/31/21 11/01/21 16:38 20:17 04:47 WBC 13.6 H RBC 3.41 L Hgb 10.1 L Hct 31.2 L MCV 91.5 MCH 29.6 MCHC 32.4 RDW 13.1 Plt Count 163 MPV 11.4 H Immature Gran % (Auto) Not Reportable Neut % (Auto) Not Reportable Lymph % (Auto) Not Reportable [place] % (Auto) Not Reportable Eos % (Auto) Not Reportable Baso % (Auto) Not Reportable Lymph # (Auto) Not Reportable [place] # (Auto) Not Reportable Eos # (Auto) Not Reportable Baso # (Auto) Not Reportable Abs Immat Gran (auto) Not Reportable Absolute Neuts (auto) Not Reportable Absolute Nucleated RBC Not Reportable Nucleated RBC % Not Reportable POC Capillary Glucose 112 H 148 H RPR Antibody Screen OB - PN A/P Assessment and Plan (1) delivery delivered: Code(s): O82 - Encounter for delivery without indication Status: Acute (2) DM2 (diabetes mellitus, type 2): Code(s): E11.9 - Type 2 diabetes mellitus without complications Status: Acute Plan day: 1 Plan: routine care Comments: consented for circumcision routine post op care BS fine on metformin only. Time Spent With Patient Time: Total time spent is greater than 50% in coordination of care (as documented) at patient's floor/unit and/or counseling patient: Exam Narrative: NAD abdomen soft, appropriately tender, incision bandaged Extremities nontender with 1+ edema
--- NOTE | 2021-11-01 19:26 | PC.NURSE ---
Blood sugars per person meter, approved by Dr. Abdalla. Fasting 69, post breakfast 121, post lunch 100
[2021-11-01] MEDS: SIMETHICONE 80 MG TAB.CHEW PO (20:36)
[2021-11-01 20:55] VITALS: BP 113/75; PULSE 91; RESP 16; TEMP 37.3; O2SAT 100
[2021-11-02] MEDS: oxyCODONE HCL (*CRX) 5 MG TAB IR PO ×4 (01:59→18:37)
[2021-11-02 08:45] VITALS: BP 109/68; PULSE 99; RESP 18; TEMP 36.8; O2SAT 99
[2021-11-02] MEDS: DOCUSATE SODIUM 100 MG CAPSULE PO ×2 (09:16→18:38)
[2021-11-02] MEDS: MULTIVIT/MIN/PREN/FOL AC/IRON TABLET 1 TAB PO (09:16)
[2021-11-02] MEDS: IBUPROFEN 600 MG TABLET PO ×2 (09:17→18:37)
[2021-11-02] MEDS: metFORMIN HCL XR 500 MG TAB.SR.24H 1000 MG PO ×2 (09:21→21:14)
--- NOTE | 2021-11-02 10:44 | P.PNOB_ITS ---
OB - PN: Subj Subjective Date/time seen: 11/02/21 10:44 Patient comments: no complaints and pain well controlled baby status: doing well [place] feeding status: breast and bottle feeding Narrative: Did not feed well overnight, but then this morning nursed for 20min. Mood good. Wants to stay until tomorrow. OB - PN: Obj Data Labs CBC & Chem 7: 11/01/21 04:47 OB - PN A/P Plan day: 2 Plan: routine care Comments: mild anemia routine post op care. BS good so far, may need to decrease metformin. Time Spent With Patient Time: Total time spent is greater than 50% in coordination of care (as documented) at patient's floor/unit and/or counseling patient: Exam Narrative: NAD abdomen soft, appropriately tender, incision CDI Extremities nontender with 2+ edema
[2021-11-02 21:15] VITALS: BP 103/71; PULSE 81; RESP 16; TEMP 36.6; O2SAT 100
[2021-11-03] MEDS: oxyCODONE HCL (*CRX) 5 MG TAB IR PO ×3 (00:31→10:04)
[2021-11-03] MEDS: IBUPROFEN 600 MG TABLET PO ×2 (00:32→10:03)
--- NOTE | 2021-11-03 05:05 | PC.NURSE ---
Glucose readings for November 02 per patient glucometer 76 fasting; 115 after breakfast; the patient forgot to get after lunch; 132 after dinner. For November 03 per patient glucometer 80 fasting.
--- NOTE | 2021-11-03 07:39 | PM.OBPNVD ---
OB - PN: Subj Subjective Date/time seen: 11/03/21 07:39 Patient comments: no complaints, pain well controlled, tolerating diet and flatus present [place] baby status: doing well [place] feeding status: breast and bottle feeding OB - PN: Obj Data Labs CBC & Chem 7: 11/01/21 04:47 OB - PN A/P Plan day: 3 Plan: routine care and discharge home Comments: FU 1 week Time Spent With Patient Time: Total time spent is greater than 50% in coordination of care (as documented) at patient's floor/unit and/or counseling patient: Exam Narrative: NAD abdomen soft, appropriately tender, incision CDI Extremities nontender with 1+ edema
--- NOTE | 2021-11-03 07:44 | PM.OBDSVD ---
DS: Admitting Diagnosis Discharge Date 11/03/21 Admitting Diagnosis Term IUP, DM2, breech DS: Discharge Diagnosis Discharge Diagnosis (1) delivery delivered: Code(s): O82 - Encounter for delivery without indication Status: Acute (2) DM2 (diabetes mellitus, type 2): Code(s): E11.9 - Type 2 diabetes mellitus without complications Status: Acute OB - DS: Summary Hospital Course Hospital Course: Yolanda was admitted for scheduled CS for breech. her delivery and course was uncomplicated. She was DCed home on POD3 in stable condition. Insulin was stopped after delivery and sugars were controlled on metformin. OB Procedures : NST and Ultrasound OB Procedures Intrapartum: OB Procedures: : None Peripartum Data Delivery Method: Section Procedures: Procedures Operation Date: 10/31/21 09:00 Actual Procedure Side Surgeon p Section Mallory Abdalla MD complications: none Status at Discharge Functional status at discharge: independent ambulation Time Spent with Patient Time attestation: Total time spent providing and/or coordinating discharge services: Exam Narrative: NAD abdomen soft, appropriately tender, incision CDI DS: Data Data Completed and Pending Pending studies at discharge: Pending at discharge 10/31/21 09:30 Surgical [PTH] Routine Discharge Plan Discharge Attending physician on discharge: Mallory Abdalla Discharging Clinician: Mallory Abdalla Anticipated Discharge Date/Time: 11/03/21 07:40 Patient Disposition: Home, Self-Care Activity: may shower, may drive after 2 weeks and pelvic rest Diet: diabetic Patient Instructions: Antibiotic Form Stand Alone Forms: General Discharge Information Follow-up/Referrals: Mallory Abdalla MD [Physician] - 1 Week Discharge Medications: New oxycodone 5 mg Tablet 5 mg PO Q4H PRN (Reason: Pain Rated 7-10) Qty: 30 0RF ibuprofen 600 mg Tablet 600 mg PO Q6H PRN (Reason: Cramping) Qty: 60 0RF docusate sodium 100 mg Capsule 100 mg PO BID PRN (Reason: constipation) Qty: 60 0RF Continued metformin 500 mg tablet extended release 24 hr 1,000 mg PO BID PNV cmb#95-ferrous fumarate-FA [] 28 mg iron- 800 mcg Tablet 1 tablet PO DAILY Discontinued Humulin N NPH U-100 Insulin 100 unit/mL Suspension 18 unit SUBCUT HS Date of admission: 10/31/21 06:50 Primary Care Provider: Dipak,Briseida Admitting Provider: Mallory Abdalla Attending physician on admission: Mallory Abdalla Condition: Stable
[2021-11-03 08:05] VITALS: BP 112/74; PULSE 90; RESP 16; TEMP 36.5; O2SAT 100
--- NOTE | 2021-11-03 09:13 | PC.NURSE ---
Addendum entered by Shaina Salinas RN 11/03/21 09:25: Breast pump provided prior to shift due to maternal request. Instructions given on cleaning, care, usage, that there should be no pain, pumping schedule for milk production, collection, and storage of human milk. Parents are encouraged to record pumping schedule on the feeding sheet. Patient was assessed for correct placement, flange size, to pump for comfort and nipple stretching/stimulation for adequate milk production every 3 hours (8 times in 24 hours). Mother voiced understanding of the education shared along with mom and baby guide for additional resource information. Original Note: [id number] Introductions were made and Mother led the conversation with her experience and plan to feed her so far and her ability to pump and feed her . Reminded parents to use good handwashing technique to prevent infection. Mother is feeding appropriately for growth of and understands stimulating to eat if needed. Infant has had appropriate feedings in the last 24 hours meets the outcomes for weight, output and jaundice at this time. Mother states she is confident to continue pumping with consistency every 3 hours to feed her at home, when to call for assistance and denies any additional assistance or education at this time. Reinforced understanding of milk production, transition of milk, signs of adequate intake, prevention/relief of engorgement, stimulating to feed every 2-3 hours, community resources, medication information reviewed per [employer] and when to call a provider using the resource of the mom and baby guide/[facility] website. Mother voiced understanding of the education shared.
[2021-11-03] MEDS: MULTIVIT/MIN/PREN/FOL AC/IRON TABLET 1 TAB PO (10:02)
[2021-11-03] MEDS: DOCUSATE SODIUM 100 MG CAPSULE PO (10:02)
[2021-11-03] MEDS: metFORMIN HCL XR 500 MG TAB.SR.24H 1000 MG PO (10:02)
[2021-11-04 07:55] VITALS: BP 129/78; PULSE 95; RESP 20; TEMP 36.9; O2SAT 99
== END 2021-11-03 10:59 | disposition home or self-care (01) | DRG 786 ==
LOC: ANHLDR 07:01 → ANHOB2 12:16
PROVIDERS: Admitting Provider Obstetrics & Gynecology; PCP Nurse Practitioner Family; Visit Provider Obstetrics & Gynecology
PROC: 10D00Z1 Extraction of Products of Conception, Low, Open Approach (ICD-10-PCS; CPT 59514; principal; 2021-10-31 09:00)
DX: O32.1XX0 Maternal care for breech presentation, not applicable or unspecified (principal); O24.12 Pre-existing type 2 diabetes mellitus, in childbirth; Z37.0 Single live birth; Z3A.38 38 weeks gestation of pregnancy
CPT/HCPCS: 36415; 82948; 85025; 86592; 86850; 86900; 86901; 88307; A9270; J0131; J0690; J1885; J2210; J2274; J2370; J2405; J2590; J7120

== ENCOUNTER 2022-10-19 21:38 | Observation (INO) | payer OTHER, BC, SELFPAY ==
[2022-10-19] VITALS (10 sets, daily range): BP systolic 107–111; BP diastolic 64–67; PULSE 85–101; RESP 12–24; TEMP 36.4; O2SAT 99–100
--- NOTE | 2022-10-19 21:53 | PC.NURSE ---
pt given sandwich,chips, and soda. tolerating well.
--- NOTE | 2022-10-19 22:04 | PC.NURSE ---
pt fsbs=59. d10 initiated. dr. Sibley aware.
[2022-10-19 22:07] LABS: Glucose Point of Care 59 mg/dl (65-105)
[2022-10-19 22:07] LABS: Glucose Point of Care 101 mg/dl (65-105)
--- NOTE | 2022-10-19 22:14 | ED.RECABL ---
HPI - Recheck/Abnormal Lab/Rx General Chief Complaint: Recheck/Abnormal Lab/Rx Stated Complaint: LOW BG Time Seen by Provider: 10/19/22 21:39 History of Present Illness HPI narrative: This is a 27-year-old female, with past history of type 2 diabetes, 16 weeks now on insulin who presents the emergency department with an episode of hypoglycemia. The patient states she took 18 units of long-acting insulin as prescribed approximately 1 and half hours prior to arrival. She received a warning from her glucose monitor that her sugar is low but was not able to eat before losing consciousness. She was found by family members minimally responsive. EMS on arrival noted a fingerstick blood glucose of low . The patient was started on D10 with improvement of glucose to 130 though decreased to 100 with repeat check. The patient has no other complaints today. Related Data Home Medications Medication Instructions Recorded Confirmed vit no.95-ferrous 1 tablet PO DAILY 10/16/21 10/20/22 fumarate 28 mg-folic acid 800 mcg tablet () insulin NPH isoph U-100 human 100 18 unit subcut BID-TID 10/20/22 10/20/22 unit/mL subcutaneous suspension (Humulin N NPH U-100 Insulin (isophane susp)) insulin lispro 100 unit/mL 4 unit subcut QACDINNER 10/20/22 10/20/22 subcutaneous solution Allergies Allergy/AdvReac Type Severity Reaction Status Date / Time No Known Allergies Allergy Verified 09/06/20 11:02 Review of Systems Review of Systems: CONSTITUTIONAL: Denies fever, chills, or sweats. CARDIOVASCULAR: Denies chest pain, palpitations, or edema. RESPIRATORY: Denies cough or dyspnea. GASTROINTESTINAL: Denies abdominal pain, nausea, vomiting, or diarrhea. GENITOURINARY: Denies dysuria or hematuria. SKIN: Denies rash or itching. MUSCULOSKELETAL: Denies back pain, joint pain, or myalgia. NEUROLOGIC: Denies headache, numbness, dizziness, or weakness. PSYCHIATRIC: Denies anxiety or depression. [facility] Past Medical History Medical History DM2 (diabetes mellitus, type 2) Missed ab Obesity Family History Family History Other No pertinent family history Social History Social History Smoking status: Never smoker Second hand tobacco smoke exposure: No Alcohol intake: never Substance use: never Substance use type: does not use Living arrangements: with family Spiritual care concerns: No Exam Narrative: GENERAL: Well-developed, well-nourished, and in no acute distress. HEAD: Normocephalic, atraumatic. EYES: PERRLA and EOMI. ENT: Nares clear, no rhinorrhea or epistaxis. Mucous membranes moist. Oropharynx without tonsillar hypertrophy exudate or other lesions. CHEST: Clear to auscultation. No respiratory distress. No wheezes rales or rhonchi HEART: Regular rate and rhythm. No murmur heard. Normal peripheral pulses. ABDOMEN: Soft, gravid, nontender, nondistended, normal active bowel sounds. EXTREMITIES: Normal range of motion. No edema. SKIN: Warm, dry, no rash. NEURO: No focal deficits. Alert and oriented x3. PSYCH: Normal mood and affect. Course Course Emergency Course: 21:50 - Bedside ultrasound performed by me shows a single intrauterine with normal activity. heart rate 140. Fingerstick glucose 101. Will allow the patient to eat and repeat fingerstick glucose. 22:06 - Repeat glucose 59. Will place patient on D5 LR and plan for admission. 23:45 - Potassium 2.7, will replete. Remaining chemistries demonstrate mild hypocalcemia at 8.3 but is otherwise unremarkable. UA not concerning for UTI. Discussed patient with OB, Dr. Tijerina who accepts admission to labor and delivery. Vital Signs Vital signs: Vital Signs Temperature 97.5 F L 10/19/22 21:38 Pulse Rate 85 10/19/22 21:38 R
[2022-10-19 22:20] LABS: Basophils Percent Auto 0.3 % (0.2-1.2); Eosinophils Absolute Auto 0.1 K/mm3 (0-0.3); Eosinophils Percent Auto 1.1 % (0-4.4); Hemoglobin 12.6 g/dL (12.0-15.0); Immature Granulocyte Absolute 0.05 K/mm3 (0.00-0.031); Immature Granulocyte Percent A 0.4 % (0-0.5); Lymphocytes Absolute Auto 3.49 K/mm3 (0.9-3.2); Lymphocytes Percent Auto 30.3 % (18.3-44.2); Mean Corpuscular HGB Conc 33.2 g/dl (32-36); Mean Corpuscular Hemoglobin 30.1 pg (26-34); Mean Corpuscular Volume 90.9 fl (80-100); Monocytes Absolute Auto 0.7 K/mm3 (0.1-0.6); Neutrophils Absolute Auto 7.1 K/mm3 (1.3-6.7); Neutrophils Percent Auto 61.9 % (45.5-73.1); Platelet Count Result 242 k/mm3 (150-375); Red Blood Count 4.18 M/mm3 (4.2-5.4); Red Cell Distribution Width 12.8 % (11.5-14.5); White Blood Count 11.5 K/mm3 (4.5-10.0)
[2022-10-19] MEDS: DEXTROSE 5%/LACTATED RINGERS 1,000 ML 100 ML IV CONT (22:26)
[2022-10-19 22:38] LABS: Alanine Aminotransferase 16 U/L (6-35); Albumin Level 3.6 g/dL (3.5-5.1); Alkaline Phosphatase 38 U/L (38-126); Anion Gap 7 mmol/L (8-16); Aspartate Amino Transferase 19 U/L (14-36); Bilirubin,Total 0.2 mg/dL (0.2-1.3); Blood Urea Nitrogen 12 mg/dL (7-17); Calcium 8.3 mg/dL (8.4-10.2); Carbon Dioxide 24 mmol/L (22-30); Chloride 105 mmol/L (98-107); Estimated Glomerular Filt Rate > 60; Glucose 60 mg/dL (65-110); Magnesium 1.7 mg/dL (1.6-2.3); Potassium 2.7 mmol/L (3.4-5.0); Sodium 136 mmol/L (137-145)
[2022-10-19 23:13] LABS: Appearance Urine Clear (Clear); Bilirubin Urine Negative (Negative); Blood Urine Negative (Negative); Color Urine Yellow (Yellow); Glucose Urine UA 2+ mg/dL (Negative); Ketones Urine Negative (Negative); Leukocyte Esterase Ur Negative LEU/UL (Negative); Nitrate Urine Negative (Negative); Protein Urine Negative (Negative); Specific Grav Ur 1.018 (1.001-1.035); Urobilinogen Urine 0.2 mg/dL (<2.0)
[2022-10-19] MEDS: POTASSIUM CHLORIDE 20 MEQ PACKET (FOR LIQUID) 40 MEQ PO (23:24)
[2022-10-19] MEDS: POTASSIUM CHLORIDE INJ 40 MEQ in SODIUM CHLORIDE 0.9% IV 500 ML 130 MEQ IVPB (23:24)
[2022-10-19 23:31] LABS: Glucose Point of Care 170 mg/dl (65-105)
[2022-10-20] VITALS (12 sets, daily range): BP systolic 72–104; BP diastolic 53–63; PULSE 78–104; RESP 20; O2SAT 97–100; BMI 31.1
[2022-10-20 00:44] LABS: Glucose Point of Care 223 mg/dl (65-105)
--- NOTE | 2022-10-20 01:20 | PC.NURSE ---
Dr. Tijerina notified of PT arriving from ED. Blood glucose 170 at 2339 and 223 at 0040. D5LR currently running at 100ml/hr and Potassium running at 130ml/hr. Orders to reduce D5LR to 50ml/hr.
--- NOTE | 2022-10-20 02:42 | OBADM ---
This patient, Yolanda Troncoso, admitted to the OB room OB Post 112 for observation. Patient/family oriented to hospital policies and general routines including ID bracelet, bed and alarms, visiting hours, pain management, procedures, bathroom and other care routines, personal items, smoking policy, room service/diet, and visiting hours. Patient/Family are encouraged to report perceived risks to care and to ask questions if they do not understand what they are told or what they should do.
[2022-10-20 02:56] LABS: Glucose Point of Care 174 mg/dl (65-105)
[2022-10-20 04:48] LABS: Glucose Point of Care 126 mg/dl (65-105)
--- NOTE | 2022-10-20 06:25 | PC.NURSE ---
Report given to Rodney Cruz RN
[2022-10-20 06:58] LABS: Glucose Point of Care 97 mg/dl (65-105)
[2022-10-20 08:15] LABS: Glucose Point of Care 115 mg/dl (65-105)
--- NOTE | 2022-10-20 08:48 | PC.NURSE ---
0835--Dr. Tijerina on unit, pt. accuchecks and v.s. reviewed. Orders to DC IVF's at this time, continue to hold pt's insulin, continue accuchecks q 2h, and recheck CMP.
--- NOTE | 2022-10-20 08:52 | PC.NURSE ---
0838--IV to saline lock at this time.
[2022-10-20 09:22] LABS: Basophils Percent Auto 0.2 % (0.2-1.2); Eosinophils Absolute Auto 0.1 K/mm3 (0-0.3); Eosinophils Percent Auto 0.5 % (0-4.4); Hematocrit 33.7 % (37.0-47.0); Hemoglobin 10.9 g/dL (12.0-15.0); Immature Granulocyte Absolute 0.03 K/mm3 (0.00-0.031); Immature Granulocyte Percent A 0.3 % (0-0.5); Lymphocytes Absolute Auto 1.98 K/mm3 (0.9-3.2); Lymphocytes Percent Auto 20.3 % (18.3-44.2); Mean Corpuscular HGB Conc 32.3 g/dl (32-36); Mean Corpuscular Hemoglobin 29.1 pg (26-34); Mean Corpuscular Volume 89.9 fl (80-100); Mean Platelet Volume 10.3 fl (7.4-10.4); Monocytes Absolute Auto 0.4 K/mm3 (0.1-0.6); Monocytes Percent Auto 4.3 % (2.6-8.5); Neutrophils Absolute Auto 7.3 K/mm3 (1.3-6.7); Neutrophils Percent Auto 74.4 % (45.5-73.1); Platelet Count Result 232 k/mm3 (150-375); Red Blood Count 3.75 M/mm3 (4.2-5.4); Red Cell Distribution Width 12.7 % (11.5-14.5); White Blood Count 9.8 K/mm3 (4.5-10.0)
[2022-10-20 09:53] LABS: Anion Gap 4 mmol/L (8-16); Blood Urea Nitrogen 6 mg/dL (7-17); Calcium 8.3 mg/dL (8.4-10.2); Carbon Dioxide 23 mmol/L (22-30); Chloride 109 mmol/L (98-107); Estimated Glomerular Filt Rate > 60; Glucose 157 mg/dL (65-110); Potassium 4.1 mmol/L (3.4-5.0); Sodium 136 mmol/L (137-145)
[2022-10-20 10:07] LABS: Glucose Point of Care 140 mg/dl (65-105)
--- NOTE | 2022-10-20 10:24 | PC.NURSE ---
5303--Phone call to Dr. Tijerina, left message to call me back for report.
--- NOTE | 2022-10-20 10:25 | PC.NURSE ---
1020--No return call from Dr. Tijerina, phone call to him at this time. No answer, left message.
--- NOTE | 2022-10-20 10:32 | PC.NURSE ---
Phone call to office, requesting to speak with Dr. Tijerina. State they will have him call me.
[2022-10-20] MEDS: INSULIN HUMAN NPH (*BKC) 100 UNITS/ML SUB-Q (10:56)
[2022-10-20 12:47] LABS: Glucose Point of Care 81 mg/dl (65-105)
--- NOTE | 2022-10-20 12:58 | PC.NURSE ---
1000--Pt. inquiring about status and asking if she will have another u/s today to check on the baby since her blood sugars have been up and down . Discusses effects of blood sugars on and reassurance given. Doppler of fhr 156 and pt. feels better about baby after hearing the heartbeat . Will continue to monitor.
[2022-10-20 14:02] LABS: Glucose Point of Care 90 mg/dl (65-105)
--- NOTE | 2022-10-20 14:49 | PC.NURSE ---
1440--IV DC'd at this time, tip intact and IV site WNL.
[2022-10-22 11:41] LABS: Add Urine Microscopic? NO
--- NOTE | 2022-11-12 22:53 | PM.OBTRLD ---
OB - Triage/Final Diagnosis Visit Information Comments/Additional reasons for admission: I have assessed the risk for this patient, Yolanda Troncoso, and determined that she would benefit from observation care. Evaluation Laboratory results: Laboratory Tests 10/19/22 10/19/22 10/19/22 21:43 22:04 22:12 WBC 11.5 H RBC 4.18 L Hgb 12.6 Hct 38.0 MCV 90.9 MCH 30.1 MCHC 33.2 RDW 12.8 Plt Count 242 MPV 10.0 Immature Gran % (Auto) 0.4 Neut % (Auto) 61.9 Lymph % (Auto) 30.3 [place] % (Auto) 6.0 Eos % (Auto) 1.1 Baso % (Auto) 0.3 Lymph # (Auto) 3.49 H [place] # (Auto) 0.7 H Eos # (Auto) 0.1 Baso # (Auto) 0.0 Abs Immat Gran (auto) 0.05 H Absolute Neuts (auto) 7.1 H Absolute Nucleated RBC 0.0 Nucleated RBC % 0.0 Sodium 136 L Potassium 2.7 L* Chloride 105 Carbon Dioxide 24 Anion Gap 7 L BUN 12 D Creatinine 0.50 L Estim Creat Clear Calc Not Reportable Estimated GFR > 60 Glucose 60 L POC Capillary Glucose 101 59 L* Calcium 8.3 L Magnesium 1.7 Total Bilirubin 0.2 AST 19 ALT 16 Alkaline Phosphatase 38 Total Protein 7.0 Albumin 3.6 Urine Color Urine Appearance Urine pH Ur Specific [place] Urine Protein Urine Glucose (UA) Urine Ketones Ur Blood (Man) Urine Nitrate Urine Bilirubin Urine Urobilinogen Leukocyte Esterase Rfl 10/19/22 10/19/22 10/20/22 23:04 23:29 00:40 WBC RBC Hgb Hct MCV MCH MCHC RDW Plt Count MPV Immature Gran % (Auto) Neut % (Auto) Lymph % (Auto) [place] % (Auto) Eos % (Auto) Baso % (Auto) Lymph # (Auto) [place] # (Auto) Eos # (Auto) Baso # (Auto) Abs Immat Gran (auto) Absolute Neuts (auto) Absolute Nucleated RBC Nucleated RBC % Sodium Potassium Chloride Carbon Dioxide Anion Gap BUN Creatinine Estim Creat Clear Calc Estimated GFR Glucose POC Capillary Glucose 170 H 223 H Calcium Magnesium Total Bilirubin AST ALT Alkaline Phosphatase Total Protein Albumin Urine Color Yellow Urine Appearance Clear Urine pH 6.0 Ur Specific [place] 1.018 Urine Protein Negative Urine Glucose (UA) 2+ H Urine Ketones Negative Ur Blood (Man) Negative Urine Nitrate Negative Urine Bilirubin Negative Urine Urobilinogen 0.2 Leukocyte Esterase Rfl Negative 10/20/22 10/20/22 10/20/22 02:39 04:43 06:54 WBC RBC Hgb Hct MCV MCH MCHC RDW Plt Count MPV Immature Gran % (Auto) Neut % (Auto) Lymph % (Auto) [place] % (Auto) Eos % (Auto) Baso % (Auto) Lymph # (Auto) [place] # (Auto) Eos # (Auto) Baso # (Auto) Abs Immat Gran (auto) Absolute Neuts (auto) Absolute Nucleated RBC Nucleated RBC % Sodium Potassium Chloride Carbon Dioxide Anion Gap BUN Creatinine Estim Creat Clear Calc Estimated GFR Glucose POC Capillary Glucose 174 H 126 H 97 Calcium Magnesium Total Bilirubin AST ALT Alkaline Phosphatase Total Protein Albumin Urine Color Urine Appearance Urine pH Ur Specific [place] Urine Protein Urine Glucose (UA) Urine Ketones Ur Blood (Man) Urine Nitrate Urine Bilirubin Urine Urobilinogen Leukocyte Esterase Rfl 10/20/22 10/20/22 10/20/22 08:11 09:13 10:03 WBC 9.8 RBC 3.75 L Hgb 10.9 L Hct 33.7 L MCV 89.9 MCH 29.1 MCHC 32.3 RDW 12.7 Plt Count 232 MPV 10.3 Immature Gran % (Auto) 0.3 Neut % (Auto) 74.4 H Lymph % (Auto) 20.3 [place] % (Auto) 4.3 Eos % (Auto) 0.5 Baso % (Auto) 0.2 Lymph # (Auto) 1.98 [place] # (Auto) 0.4 Eos # (Auto) 0.1 Baso # (Auto) 0.0 Abs Immat Gran (auto) 0.03 Absolute Neuts (auto) 7.3 H Absolute Nucle
== END 2022-10-20 14:54 | disposition home or self-care (01) ==
LOC: ANHED 23:53 → ANHOBPP 10-20 00:42
PROVIDERS: Admitting Provider Obstetrics & Gynecology; Emergency Provider Preventive Medicine Aerospace Medicine; PCP Nurse Practitioner Family; Visit Provider Obstetrics & Gynecology
DX: O99.282 Endocrine, nutritional and metabolic diseases complicating pregnancy, second trimester (principal); E83.51 Hypocalcemia; E87.6 Hypokalemia; O24.112 Pre-existing type 2 diabetes mellitus, in pregnancy, second trimester; E16.2 Hypoglycemia, unspecified; Z3A.15 15 weeks gestation of pregnancy; Z79.4 Long term (current) use of insulin; Z79.899 Other long term (current) drug therapy
CPT/HCPCS: 36415; 80048; 80053; 81001; 81003; 82948; 83735; 85025; 96374; 99285; A9270; G0378; G0379; J1815; J3480; J7040; J7121

== ENCOUNTER 2023-04-05 09:13 | Outpatient (CLI) | payer BC, SELFPAY ==
[2023-04-05 09:35] LABS: Hematocrit 35.2 % (37.0-47.0); Hemoglobin 11.2 g/dL (12.0-15.0); Mean Corpuscular HGB Conc 31.8 g/dl (32-36); Mean Corpuscular Hemoglobin 28.6 pg (26-34); Mean Corpuscular Volume 89.8 fl (80-100); Mean Platelet Volume 10.7 fl (7.4-10.4); Platelet Count Result 191 k/mm3 (150-375); Red Blood Count 3.92 M/mm3 (4.2-5.4); Red Cell Distribution Width 13.1 % (11.5-14.5); White Blood Count 9.4 K/mm3 (4.5-10.0)
[2023-04-06 15:45] LABS: Rapid Plasma Reagin Non-Reactive (NonReactive)
== END 2023-04-05 09:14 | disposition home or self-care (01) ==
LOC: ANHLAB 09:15
PROVIDERS: PCP Nurse Practitioner Family; Visit Provider Obstetrics & Gynecology
DX: Z34.93 Encounter for supervision of normal pregnancy, unspecified, third trimester (principal); Z3A.00 Weeks of gestation of pregnancy not specified
CPT/HCPCS: 36415; 85027; 86592; 86850; 86900; 86901

== ENCOUNTER 2023-04-06 10:05 | Inpatient (IN) | payer BC, SELFPAY ==
[2023-04-06] VITALS (46 sets, daily range): BP systolic 101–135; BP diastolic 54–85; PULSE 63–100; RESP 14–16; TEMP 36.1–37; O2SAT 96–100; BMI 36.5
[2023-04-06] MEDS: LACTATED RINGERS 1,000 ML 125 ML IV CONT ×3 (10:35→17:25)
--- NOTE | 2023-04-06 10:35 | ADMGEN ---
This patient, Yolanda Troncoso, was admitted to Labor/Delivery/Recovery 118-00. Patient/family oriented to hospital policies and general routines including ID bracelet, bed and alarms, visiting hours, pain management, procedures, bathroom and other care routines, personal items, smoking policy, room service/diet, and visiting hours. Information on how to activate the Rapid Response Team has been discussed. Patient/Family are encouraged to report perceived risks to care and to ask questions if they do not understand what they are told or what they should do.
[2023-04-06 11:39] LABS: Glucose Point of Care 67 mg/dl (65-105)
[2023-04-06 11:39] LABS: Glucose Point of Care 70 mg/dl (65-105)
--- NOTE | 2023-04-06 12:02 | PM.IMHP ---
H&P: HPI History of Present Illness Date/Time: 04/06/23 12:02 Chief Complaint: c section Narrative: Presents for c section indicated for T2DM and previous c section. otherwise complicated by obesity. Reactive testing. Patient desires bilateral salpingectomy with c section as well. r/b/a of bilateral salpingectomy discussed with patient including permanence of the procedure. Patient voices understanding. Review of Systems Review of Systems: All systems reviewed & are unremarkable except as noted in HPI and below PMFSH Past Medical History Medical History DM2 (diabetes mellitus, type 2) Missed ab Obesity Family History Family History Other No pertinent family history Social History Social History Smoking status: Never smoker Second hand tobacco smoke exposure: No Alcohol intake: never Substance use: never Substance use type: does not use Lack of Transportation: No Lack of Food: Never True Current Housing: I Have Housing Concerned About Future Housing: No Difficulty Paying Gas/Electric Bills: No Difficulty Paying for Meds: No Currently Unemployed: No Education: Bachelor's Degree Difficulty w/ Childcare or Family Care: No Living arrangements: with family Spiritual care concerns: No Meds Home Medications and Allergies Home Medications Medication Instructions Recorded Confirmed Type vit no.95-ferrous 1 tablet PO DAILY 10/16/21 04/06/23 History fumarate 28 mg-folic acid 800 mcg tablet () insulin lispro 100 unit/mL See Rx Instructions .Route .COMPLEX 10/20/22 04/06/23 History subcutaneous solution Allergies Allergy/AdvReac Type Severity Reaction Status Date / Time hydrocodone AdvReac Swelling Verified 04/06/23 11:00 Vital Signs Vital Signs - 24 hr 04/06/23 10:30 04/06/23 10:45 04/06/23 11:00 Pulse Rate 100 98 98 Blood Pressure 135/72 134/80 124/78 04/06/23 11:15 04/06/23 11:30 04/06/23 11:45 Pulse Rate 91 92 99 Blood Pressure 123/81 123/85 125/80 04/06/23 10:34 Pulse Rate 100 Blood Pressure 135/72 Exam Const: General: comfortable and no acute distress HENMT: Face/Nose/Sinus: Normal nares present Mouth: Yes moist mucous membranes Eyes: General: appearance normal, both eyes and all related structures Neck: Neck: supple Resp: Effort & Inspection: normal respiratory effort Cardio: Rate: regular rate Rhythm: regular rhythm GI: GI Palp: Yes Soft to palpation Skin: General skin exam: normal color and no rashes or lesions noted Neuro: General: gait normal Speech: normal speech Motor exam (neuro): 5/5 motor strength present throughout Sensory Exam: normal sensation Extrem: General: normal to inspection Psych: Mental Status: mental status grossly normal Assessment and Plan Assessment and plan (1) DM2 (diabetes mellitus, type 2): Code(s): E11.9 - Type 2 diabetes mellitus without complications Status: Acute Assessment and Plan: insulin recommendations given by [facility]. Plan Presents for repeat c section with bilateral salpingectomy indicated for T2DM on insulin pump. R/b/a of procedures discussed, patient voices understanding. Will restart insulin pump with settings after delivery.
--- NOTE | 2023-04-06 12:06 | WPDHPUPDATE1 ---
History and Physical Update Update Date/Time: 04/06/23 12:06 History and Physical has been reviewed, including an updated exam of the patient. There are NO changes in the patient's condition. Risks, benefits, and alternatives have been discussed and questions answered. Patient agrees to proceed with procedure.
--- NOTE | 2023-04-06 13:20 | W.PM.OBCSD ---
OB - Delivery Note Procedure Delivery date: 04/06/23 Pre-op diagnosis: Diabetes Mellitus and Previous Delivery Post-op Diagnosis: Same Delivery monitor: External FHT Prior to decision for section, ACOG/SMFM labor guidelines were considered and discussed with the patient and staff. Decision made to proceed with the section.: Yes Procedure Performed: Repeat Secondary branch: low cervical, transverse and Tubal Ligation Surgeon: Romulo Lewis MD Anesthesia type: Spinal Description of Procedure/Findings: The patient was taken to the operating room where she was placed in the dorsal supine position with a leftward tilt. The electronic monitor was placed and heart rate was found to be reassuring. She was prepped and draped in the normal sterile fashion, and anesthesia was checked to be adequate. A Pfannenstiel skin incision was made with the scalpel and carried through to the underlying layer of fascia with the scalpel. The fascia was incised in the midline and the incision extended laterally with the Nava scissors. The superior aspect of the fascial incision was then grasped with Hitesh clamps, elevated, and the underlying rectus muscles dissected off bluntly and with Nava scissors. Attention was then turned to the inferior aspect of the fascial incision, which in similar fashion was grasped, elevated, and the rectus muscles dissected off.? The rectus muscles were then in the midline, and the peritoneum entered using two Peans and Metzenbaum scissors. The peritoneal incision was extended superiorly and inferiorly with good visualization of the bladder. The bladder blade was then inserted and the vesicouterine peritoneum identified, grasped with a Peon clamp, and entered sharply with the Metzenbaum scissors. The incision was extended laterally and the bladder flap created digitally With the bladder blade providing retraction and visualization, the lower uterine segment was incised in a transverse fashion with the scalpel. The uterine incision was then extended laterally. The bladder blade was removed and the infant's head was elevated and delivered atraumatically. The remainder of the was then delivered without difficulty, and the infant's nose and mouth were suctioned with the bulb suction. The umbilical cord was doubly clamped and cut. The infant was then handed off to the waiting nursing staff. Specimens then obtained as listed below. The placenta was then removed manually and the uterus was exteriorized and cleared of all clots and debris. The uterine incision was repaired with 0-Monocryl in a running, locked fashion. The right fallopian tube was grasped with a [place] clamp and the mesosalpinx was cauterized and cut to the level of the cornua. The tube was then transected at the uterine cornua. The same procedure was performed on the left side. The posterior cul-de-sac was manually cleared of all clots and debris. The uterus was returned to the abdomen. The gutters were then manually cleared of all clots and debris.? The uterine incision was visualized to be hemostatic. The fascia was reapproximated with 0-Vicryl in a running fashion. The subcutaneous tissues were irrigated with warmed normal saline, and hemostasis was assured. The subcutaneous tissue was greater than 2 cm and closed in a running fashion with 3-0 plain gut suture.? The skin was closed with 4-0 Monocryl in a running subcuticular stitch and covered with skin glue. The patient tolerated the procedure well. Sponge, lap, and needle counts were correct times three per nursing. The patient was taken to the recovery room in stable condition. Specimen: Yes (bilateral fallopian tubes) Pathology: None sent Complications: No immediate complications Condition: Stable Disposition: Floor [place] Baby Date of : 04/06/23 Weeks of gestation at delivery: 39 Weight (pounds): 9 Weight (ounces): 1 presentation: vertex Placenta
[2023-04-06] MEDS: OXYTOCIN 30 UNITS/NS 500 ML 30 UNITS/500 ML BAG 125 UNITS IV CONT (13:47)
--- NOTE | 2023-04-06 15:25 | OBPPTRN ---
Patient transferred to post room #279 via stretcher. Support person present. Oriented to unit, room, information board, rooming in, admission packet and security measures. Patient verbalizes understanding.
[2023-04-06] MEDS: ONDANSETRON INJ 4 MG/2 ML VIAL IV PUSH (15:59)
[2023-04-06 16:07] LABS: Glucose Point of Care 86 mg/dl (65-105)
[2023-04-06] MEDS: METOCLOPRAMIDE HCL INJ 10 MG/2 ML VIAL IV PUSH (18:07)
[2023-04-07 00:27] VITALS: TEMP 37.6
[2023-04-07] MEDS: IBUPROFEN 600 MG TABLET PO ×3 (00:27→16:09)
[2023-04-07 00:30] VITALS: BP 101/64; PULSE 79; RESP 16; TEMP 37.6; O2SAT 96
--- NOTE | 2023-04-07 01:00 | PC.NURSE ---
Asked patient to check her blood sugar, she showed me her level on her phone. Reading was 151.
[2023-04-07] MEDS: oxyCODONE HCL (*CRX) 5 MG TAB IR PO ×5 (04:18→21:10)
[2023-04-07 04:58] LABS: Basophils Percent Auto 0.2 % (0.2-1.2); Eosinophils Percent Auto 0.1 % (0-4.4); Hematocrit 31.1 % (37.0-47.0); Immature Granulocyte Absolute 0.08 K/mm3 (0.00-0.031); Immature Granulocyte Percent A 0.5 % (0-0.5); Lymphocytes Percent Auto 14.4 % (18.3-44.2); Mean Corpuscular HGB Conc 32.2 g/dl (32-36); Mean Corpuscular Hemoglobin 28.8 pg (26-34); Mean Corpuscular Volume 89.6 fl (80-100); Neutrophils Absolute Auto 11.4 K/mm3 (1.3-6.7); Neutrophils Percent Auto 77.8 % (45.5-73.1); Platelet Count Result 179 k/mm3 (150-375); Red Blood Count 3.47 M/mm3 (4.2-5.4); Red Cell Distribution Width 13.2 % (11.5-14.5); White Blood Count 14.6 K/mm3 (4.5-10.0)
[2023-04-07 07:55] VITALS: BP 108/79; PULSE 81; RESP 18; TEMP 36.7; O2SAT 99
[2023-04-07] MEDS: DOCUSATE SODIUM 100 MG CAPSULE PO ×2 (08:19→16:08)
[2023-04-07] MEDS: MULTIVIT/MIN/PREN/FOL AC/IRON TABLET 1 TAB PO (08:19)
[2023-04-07 12:02] VITALS: BP 107/70; PULSE 81; RESP 16; TEMP 36.5; O2SAT 100
[2023-04-07] MEDS: LIDOCAINE 5% PATCH 1 PATCH TRANSDERM (12:03)
--- NOTE | 2023-04-07 13:42 | WPDANLDPN2 ---
Anes-Prog Note L&D Date/Time: 04/07/23 13:42 Comfortable throughout: labor and delivery Neuraxial method: epidural Epidural/Spinal procedure site: clean & non-tender Neuro status: Neuro function grossly intact. Cardiovascular status: normal Respiratory status: normal Airway patency: baseline Mental status: baseline Post-Op hydration status: normal Vital Signs: Last Vital Signs Temp 97.7 F 04/07/23 12:02 Pulse 81 04/07/23 12:02 Resp 16 04/07/23 12:02 BP 107/70 04/07/23 12:02 Pulse Ox 100 04/07/23 12:02 O2 Del Method Room Air 04/07/23 00:30 Pain score (VAS): 0/10 I/O: Intake & Output 04/06/23 04/07/23 04/07/23 23:59 07:59 15:59 Intake Total 1500 600 Output Total 125 1800 400 Balance 1375 -1200 -400 Post-procedural complaints: none Patient feedback: Patient satisfied with anesthetic care.
--- NOTE | 2023-04-07 13:42 | WPDANLDNPN2 ---
Anes-Prog Note L&D-Neuraxial Date/Time: 04/07/23 13:42 Neuraxial medications: intrathecal PF morphine Opiod-related complaints: none Patient feedback: Patient satisfied with post-operative pain management.
--- NOTE | 2023-04-07 16:09 | PM.OBPNVD ---
OB - PN: Subj Subjective Date/time seen: 04/07/23 08:00 Interval history: POD#1 Doing well Ambulating Pain controlled OB - PN: Obj Data Labs 04/07/23 04:34 Labs: Laboratory Results - last 24 hr 04/07/23 04:34 WBC 14.6 H RBC 3.47 L Hgb 10.0 L Hct 31.1 L MCV 89.6 MCH 28.8 MCHC 32.2 RDW 13.2 Plt Count 179 MPV 11.0 H Immature Gran % (Auto) 0.5 Neut % (Auto) 77.8 H Lymph % (Auto) 14.4 L [place] % (Auto) 7.0 Eos % (Auto) 0.1 Baso % (Auto) 0.2 Lymph # (Auto) 2.10 [place] # (Auto) 1.0 H Eos # (Auto) 0.0 Baso # (Auto) 0.0 Abs Immat Gran (auto) 0.08 H Absolute Neuts (auto) 11.4 H Absolute Nucleated RBC 0.0 Nucleated RBC % 0.0 OB - PN A/P Assessment and Plan (1) DM2 (diabetes mellitus, type 2): Code(s): E11.9 - Type 2 diabetes mellitus without complications Status: Acute (2) delivery delivered: Code(s): O82 - Encounter for delivery without indication Status: Acute Plan day: 2 Plan: routine care Time Spent With Patient Time: Total time spent is greater than 50% in coordination of care (as documented) at patient's floor/unit and/or counseling patient: Review of Systems Review of Systems: All systems reviewed & are unremarkable except as noted in HPI and below Exam Const: General: comfortable, no acute distress, alert and awake Resp: Effort & Inspection: normal respiratory effort
[2023-04-07] MEDS: SIMETHICONE 80 MG TAB.CHEW PO (16:10)
--- NOTE | 2023-04-07 17:28 | PC.NURSE ---
Patient viewed the discharge video Mother & Baby Care, The First Two Weeks . Patient was given the opportunity and encouraged to ask questions. Patient verbalized understanding of information shared and has been given the mother/baby guide for home reference.
[2023-04-07 18:00] VITALS: BP 97/63; PULSE 82; RESP 14; TEMP 36.7; O2SAT 99
[2023-04-08] MEDS: oxyCODONE HCL (*CRX) 5 MG TAB IR PO ×3 (03:20→14:02)
[2023-04-08] MEDS: IBUPROFEN 600 MG TABLET PO ×2 (04:03→10:01)
[2023-04-08 08:00] VITALS: BP 106/69; PULSE 84; RESP 16; TEMP 36.4; O2SAT 98
[2023-04-08] MEDS: DOCUSATE SODIUM 100 MG CAPSULE PO (08:50)
[2023-04-08] MEDS: MULTIVIT/MIN/PREN/FOL AC/IRON TABLET 1 TAB PO (08:50)
--- NOTE | 2023-04-08 10:14 | PM.OBPNVD ---
OB - PN: Subj Subjective Date/time seen: 04/08/23 10:14 Interval history: POD#1 Doing well Ambulating Pain controlled Patient comments: no complaints, pain well controlled, incisional pain, tolerating diet and flatus present OB - PN: Obj Data Labs 04/07/23 04:34 OB - PN A/P Plan day: 2 Plan: routine care, discharge home and other Comments: Incision check in one week. Given precautions Time Spent With Patient Time: Total time spent is greater than 50% in coordination of care (as documented) at patient's floor/unit and/or counseling patient: Exam Const: General: comfortable, no acute distress and alert Resp: Effort & Inspection: normal respiratory effort Auscultation: no crackles, no rales and no rhonchi Cardio: Rate: regular rate Heart sounds: no click, no murmurs and no rubs GI: Inspection: non-distended GI Palp: No Tenderness to palpation present (GI) Auscultation: normal bowel sounds Other: Incision - CDI Extrem: General: normal to inspection, no pedal edema and no calf tenderness
--- NOTE | 2023-04-08 10:17 | PM.OBDSVD ---
DS: Admitting Diagnosis Discharge Date April 08 2023 Admitting Diagnosis term DS: Discharge Diagnosis Discharge Diagnosis (1) delivery delivered: Code(s): O82 - Encounter for delivery without indication Status: Acute OB - DS: Summary OB Procedures : None OB Procedures Intrapartum: OB Procedures: : None Peripartum Data Procedures: Procedures Operation Date: 04/06/23 12:00 Actual Procedure Side Surgeon p Repeat Section with Bilateral Salpingectomy Not Applicable Romulo Lewis MD Time Spent with Patient Time attestation: Total time spent providing and/or coordinating discharge services: DS: Data Data Completed and Pending Pending studies at discharge: Pending at discharge 04/06/23 13:30 Surgical [PTH] Routine Discharge Plan Discharge Discharging Clinician: Rachele Tijerina Patient Disposition: Home, Self-Care Activity: pelvic rest Diet: regular Patient Instructions: Antibiotic Form Stand Alone Forms: General Discharge Information Follow-up/Referrals: Rachele Tijerina MD [Physician] - Discharge Medications: New oxycodone-acetaminophen 5-325 mg tablet 1 tablet PO Q4H PRN (Reason: pain) Qty: 25 0RF Continued PNV cmb#95-ferrous fumarate-FA [] 28 mg iron- 800 mcg Tablet 1 tablet PO DAILY insulin lispro 100 unit/mL Solution See Rx Instructions .ROUTE .COMPLEX Patient Comments: Insulin Pump Rx Instructions: Pt utilizes Insulin Pump based on carbs Will bring instructions on admission Date of admission: 04/06/23 10:05 Primary Care Provider: Dipak,Briseida Admitting Provider: Rachele Tijerina Attending physician on admission: Rachele Tijerina Condition: Stable
[2023-04-09 09:19] VITALS: BP 118/72; PULSE 87; RESP 18; TEMP 37.3; O2SAT 100
== END 2023-04-08 14:09 | disposition home or self-care (01) | DRG 783 ==
LOC: ANHLDR 10:10 → ANHOB2 15:31
PROVIDERS: Admitting Provider Obstetrics & Gynecology; PCP Nurse Practitioner Family; Visit Provider Obstetrics & Gynecology
PROC: 10D00Z1 Extraction of Products of Conception, Low, Open Approach (ICD-10-PCS; CPT 59514; principal; 2023-04-06 12:00)
DX: O34.219 Maternal care for unspecified type scar from previous cesarean delivery (principal); O24.12 Pre-existing type 2 diabetes mellitus, in childbirth; Z30.2 Encounter for sterilization; O99.214 Obesity complicating childbirth; Z3A.39 39 weeks gestation of pregnancy; Z37.0 Single live birth; Z79.4 Long term (current) use of insulin; Z96.41 Presence of insulin pump (external) (internal)
CPT/HCPCS: 36415; 82948; 85025; 88302; A9270; J1885; J2274; J2371; J2405; J2590; J2765; J7120

== ENCOUNTER 2024-03-10 04:37 | Inpatient (IN) | payer OTHER, SELFPAY ==
[2024-03-10] VITALS (27 sets, daily range): BP systolic 89–130; BP diastolic 60–85; PULSE 85–149; RESP 14–28; TEMP 36.4–37.2; O2SAT 98–100; BMI 25.2; BMI 24.3
--- NOTE | ~2024-03-10 | CT_ITS ---
EXAMINATION: CTA chest PE protocol DATE: 03/10/2024 07:01 INDICATION: Shortness of breath. TECHNIQUE: Computed tomography angiography (CTA) of the chest was performed with 100 mL Omnipaque-350 intravenous contrast timed to evaluate the pulmonary arteries. Coronal maximum intensity projection 3D-reconstructions were created by the technologist. Automated exposure control and iterative reconst ruction technique were employed. The dose-length product was 156.25 mGy-cm. COMPARISON: None. FINDINGS: There is no pneumonia or pleural effusion. The heart size is normal. No pericardial effusio n. There is no pulmonary embolus. The stomach is distended. There is mild chronic anterior wedging of multiple vertebral bodies. IMPRESSION: 1. No pulmonary embolus. Sensitivity is severely decreased by motion artifact. Reviewed, dictated and finalized at location A.
--- NOTE | ~2024-03-10 | XR_ITS ---
EXAMINATION: XR chest 1V portable DATE: 03/10/2024 06:07 INDICATION: Chest pain. Shortness of breath. TECHNIQUE: A single frontal view of the chest was obtained. COMPARISON: None. FINDINGS: There is no pneumonia, pleural effusion, or pneumothorax. The heart size is normal. IMPRESSION: 1. No acute cardiopulmonary disease. Reviewed, dictated and finalized at location A.
--- NOTE | 2024-03-10 04:44 | ECG_ITS ---
Test Date: 2024-03-10 04:48:56 Measurements Intervals [place] Rate: 110 P: 71 NE: 104 QRS: 64 QRSD: 89 T: 44 QT: 351 QTc: 475 Interpretive Statements SINUS TACHYCARDIA WITH SHORT NE INTERVAL NONSPECIFIC ST & T-WAVE ABNORMALITY No previous ECG available for comparison Electronically Signed On 03-10-2024 15:32:49 CDT by Daysi Gan M.D.
--- NOTE | 2024-03-10 05:05 | ED_ITS ---
HPI - Anxiety General Chief Complaint: Unspecified Stated Complaint: PANIC ATTACK, N/V Time Seen by Provider: 03/10/24 04:37 Source: patient Mode of arrival: EMS Limitations: no limitations History of Present Illness HPI narrative: This is a 29-year-old female, with history of anxiety and diabetes, brought in by EMS from home for reports of a ?panic attack. ? The patient states over the past day, she developed nausea nonbloody vomiting and nonbloody diarrhea. In the past 2-3 hours, she developed the sensation of difficulty breathing as well as a sharp substernal chest pain that does not radiate. She states she has not taken her medications. She has no other complaints at this time. Related Data Home Medications Medication Instructions Recorded Confirmed vit no.95-ferrous 1 tablet PO DAILY 10/16/21 04/06/23 fumarate 28 mg-folic acid 800 mcg tablet () insulin lispro 100 unit/mL See Rx Instructions .Route .COMPLEX 10/20/22 04/06/23 subcutaneous solution Allergies Allergy/AdvReac Type Severity Reaction Status Date / Time hydrocodone AdvReac Swelling Verified 04/06/23 11:00 Review of Systems Review of Systems: Last menstrual period unknown All systems reviewed & are unremarkable except as noted in HPI and below PMFSH Past Medical History Medical History DM2 (diabetes mellitus, type 2) Missed ab Obesity Family History Family History Other No pertinent family history Social History Social History Smoking status: Never smoker Second hand tobacco smoke exposure: No Alcohol intake: never Substance use: never Substance use type: does not use Lack of Transportation: No Lack of Food: Never True Current Housing: I Have Housing Concerned About Future Housing: No Difficulty Paying Gas/Electric Bills: No Difficulty Paying for Meds: No Currently Unemployed: No Education: Bachelor's Degree Difficulty w/ Childcare or Family Care: No Living arrangements: with family Spiritual care concerns: No Exam Narrative: GENERAL: Well-developed, well-nourished, in [id number] moderate distress HEAD: Normocephalic, atraumatic. EYES: PERRLA and EOMI. ENT: Nares clear, no rhinorrhea or epistaxis. Mucous membranes dry. Oropharynx without tonsillar hypertrophy exudate or other lesions. CHEST: Clear to auscultation. Tachypneic and appears to be in [id number] respiratory distress. No wheezes rales or rhonchi HEART: Tachycardic with regular rhythm. No murmur heard. Normal peripheral pulses. ABDOMEN: Soft, nontender, nondistended, normal active bowel sounds. EXTREMITIES: Normal range of motion. No edema. SKIN: Warm, dry, no rash. NEURO: Alert and oriented x3. No focal deficit. Moving all 4 limbs spontaneously PSYCH: Normal mood and affect. Course Course Emergency Course: 04:55 - The patient's breathing pattern, evidence of dehydration and history of diabetes is concerning for DKA. 05:25 - VBG demonstrates a pH of 6.88 with pCO2 of 20 and bicarb of 3.8 will treat with bicarb. White blood cell count elevated at 15.7 with elevated hemoglobin of 16.4 and platelet count of 358. 07:00 -chemistries demonstrate potassium of 4.2 glucose of 483 lactic acid elevation to 2.5. Beta hydroxybutyrate elevated at 13.2. UA demonstrates ketonuria glucosuria and white blood cells of 6-10 but is otherwise not concerning for UTI. The patient tested negative for COVID, influenza RSV. I di scussed the patient with [facility], Dr. Mckinney who accepts this admission to ICU. 07:21 - CT PE protocol negative for PE. I discussed the patient with hospitalist, Dr. Leahy who accepts admission. I discussed the findings and recommendations with the patient and his past was understanding and comfortable with the plan. Vital Signs Vital signs: Vital Signs Temperature 97.5 F L 03/10/24 04:39 Pulse Rate 114 H 03/10/24 04:39 Respiratory Rate 14 03/10/24 04:39 Blood Pressure 126/85 03/10/24 04:39 Pulse Oximetry 100 03/10/24 04:39 Oxygen Delivery Room Air 03/10/24 04:39 Temperature 97.5 F L 03/10/24 04:39 Pulse Rate 108 H 03/10/24 06:18 Respiratory Rate 17 03/10/24 06:15 Blood Pressure 126/78 03/10/24 06:01 Pulse Oximetry 100 03/10/24 06:15 Oxygen Delivery Room Air 03/10/24 04:39 MDM - Anxiety MDM Narrative Medical decision making narrative: Plan: Labs, IV fluids, imaging, EKG, troponin, pain control, reassess Differential Diagnosis Differential diagnosis: Likely hyperventilation, acute anxiety and other (DKA, pneumothorax, ACS, , metabolic abnormality, PE, other) Lab Data 03/10/24 05:11 03/10/24 05:11 Labs: Lab Results 03/10/24 03/10/24 03/10/24 Range/Units 05:00 05:11 05:59 WBC 15.7 H (4.5-10.0) K/mm3 RBC 5.08 (4.2-5.4) M/mm3 Hgb 16.4 H D (12.0-15.0) g/dL Hct 50.7 H (37.0-47.0) % MCV 99.8 (80-100) fl MCH 32.3 (26-34) pg MCHC 32.3 (32-36) g/dl RDW 13.2 (11.5-14.5) % Plt Count 358 D (150-375) k/mm3 MPV 10.2 (7.4-10.4) fl Immature Gran % (Auto) 3.2 H (0-0.5) % Neut % (Auto) 73.1 (45.5-73.1) % Lymph % (Auto) 18.1 L (18.3-44.2) % [place] % (Auto) 4.0 (2.6-8.5) % Eos % (Auto) 0.2 (0-4.4) % Baso % (Auto) 1.4 H (0.2-1.2) % Lymph # (Auto) 2.85 (0.9-3.2) K/mm3 [place] # (Auto) 0.6 (0.1-0.6) K/mm3 Eos # (Auto) 0.0 (0-0.3) K/mm3 Baso # (Auto) 0.2 H (0.0-0.1) K/mm3 Abs Immat Gran (auto) 0.50 H (0.00-0.031) K/mm3 Absolute Neuts (auto) 11.5 H (1.3-6.7) K/mm3 Absolute Nucleated RBC 0.000 (0.0-0.012) K/mm3 Nucleated RBC % 0.0 (0.0-0.2) % Sodium 140 (137-145) mmol/L Potassium 4.2 (3.4-5.0) mmol/L Chloride 105 (98-107) mmol/L Carbon Dioxide < 5 L (22-30) mmol/L Anion Gap (4-12) mmol/L BUN 12 D (7-17) mg/dL Creatinine 0.70 (0.7-1.0) mg/dL Estim Creat Clear Calc Not Reportable Estimated GFR > 60 (59 - ) Glucose 483 H (65-110) mg/dL POC Capillary Glucose 484 H (65-105) mg/dl Lactic Acid 2.5 H (0.7-2.0) mmol/L Calcium 8.5 (8.4-10.2) mg/dL Magnesium 2.2 (1.6-2.3) mg/dL Total Bilirubin 0.4 (0.2-1.3) mg/dL AST 22 (14-36) U/L ALT 15 (6-35) U/L Alkaline Phosphatase 118 (38-126) U/L Troponin I < 0.012 (0.000-0.034) ng/mL Total Protein 8.0 (6.3-8.2) g/dL Albumin 4.7 (3.5-5.1) g/dL Beta-Hydroxybutyrate/Acetoacetate 13.20 H (0.02-0.27) mmol/L Urine Color Yellow (Yellow) Urine Appearance Clear (Clear) Urine pH 5.0 (5.0-9.0) Ur Specific [place] 1.024 (1.001-1.035) Urine Protein 1+ H (Negative) mg/dL Urine Glucose (UA) 3+ H (Negative) mg/dL Urine Ketones 4+ H (Negative) mg/dL Ur Blood (Man) Negative (Negative) Urine Nitrate Negative (Negative) Urine Bilirubin Negative (Negative) Urine Urobilinogen 0.2 (<2.0) mg/dL Add Ur Microanalysis Reviewed Leukocyte Esterase Rfl Negative (Negative) [place]/UL Urine RBC 0-2 (0-2) /hpf Urine WBC 6-10 H (0-3) /hpf Ur Squamous Epith Cells Occasional (Few) /hpf Urine Bacteria None seen /hpf Urine Casts 6-10 POC Urine HCG, Qual (Negative) Influenza A (RT-PCR) (Negative) Influenza B (RT-PCR) (Negative) RSV (RT-PCR) (Negative) SARS-CoV-2 RNA (RT-PCR) (Negative) 03/10/24 03/10/24 03/10/24 Range/Units 06:16 06:19 06:23 WBC (4.5-10.0) K/mm3 RBC (4.2-5.4) M/mm3 Hgb (12.0-15.0) g/dL Hct (37.0-47.0) % MCV (80-100) fl MCH (26-34) pg MCHC (32-36) g/dl RDW (11.5-14.5) % Plt Count (150-375) k/mm3 MPV (7.4-10.4) fl Immature Gran % (Auto) (0-0.5) % Neut % (Auto) (45.5-73.1) % Lymph % (Auto) (18.3-44.2) % Mcke[place] % (Auto) (2.6-8.5) % Eos % (Auto) (0-4.4) % Baso % (Auto) (0.2-1.2) % Lymph # (Auto) (0.9-3.2) K/mm3 [place] # (Auto) (0.1-0.6) K/mm3 Eos # (Auto) (0-0.3) K/mm3 Baso # (Auto) (0.0-0.1) K/mm3 Abs Immat Gran (auto) (0.00-0.031) K/mm3 Absolute Neuts (auto) (1.3-6.7) K/mm3 Absolute Nucleated RBC (0.0-0.012) K/mm3 Nucleated RBC % (0.0-0.2) % Sodium (137-145) mmol/L Potassium (3.4-5.0) mmol/L Chloride (98-107) mmol/L Carbon Dioxide (22-30) mmol/L Anion Gap (4-12) mmol/L BUN (7-17) mg/dL Creatinine (0.7-1.0) mg/dL Estim Creat Clear Calc Estimated GFR (59 - ) Glucose (65-110) mg/dL POC Capillary Glucose 382 H (65-105) mg/dl Lactic Acid (0.7-2.0) mmol/L Calcium (8.4-10.2) mg/dL Magnesium (1.6-2.3) mg/dL Total Bilirubin (0.2-1.3) mg/dL AST (14-36) U/L ALT (6-35) U/L Alkaline Phosphatase (38-126) U/L Troponin I (0.000-0.034) ng/mL Total Protein (6.3-8.2) g/dL Albumin (3.5-5.1) g/dL Beta-Hydroxybutyrate/Acetoacetate (0.02-0.27) mmol/L Urine Color (Yellow) Urine Appearance (Clear) Urine pH (5.0-9.0) Ur Specific [place] (1.001-1.035) Urine Protein (Negative) mg/dL Urine Glucose (UA) (Negative) mg/dL Urine Ketones (Negative) mg/dL Ur Blood (Man) (Negative) Urine Nitrate (Negative) Urine Bilirubin (Negative) Urine Urobilinogen (<2.0) mg/dL Add Ur Microanalysis Leukocyte Esterase Rfl (Negative) [place]/UL Urine RBC (0-2) /hpf Urine WBC (0-3) /hpf Ur Squamous Epith Cells (Few) /hpf Urine Bacteria /hpf Urine Casts POC Urine HCG, Qual Negative (Negative) Influenza A (RT-PCR) Negative (Negative) Influenza B (RT-PCR) Negative (Negative) RSV (RT-PCR) Negative (Negative) SARS-CoV-2 RNA (RT-PCR) Negative (Negative) 03/10/24 Range/Units 07:07 WBC (4.5-10.0) K/mm3 RBC (4.2-5.4) M/mm3 Hgb (12.0-15.0) g/dL Hct (37.0-47.0) % MCV (80-100) fl MCH (26-34) pg MCHC (32-36) g/dl RDW (11.5-14.5) % Plt Count (150-375) k/mm3 MPV (7.4-10.4) fl Immature Gran % (Auto) (0-0.5) % Neut % (Auto) (45.5-73.1) % Lymph % (Auto) (18.3-44.2) % [place] % (Auto) (2.6-8.5) % Eos % (Auto) (0-4.4) % Baso % (Auto) (0.2-1.2) % Lymph # (Auto) (0.9-3.2) K/mm3 [place] # (Auto) (0.1-0.6) K/mm3 Eos # (Auto) (0-0.3) K/mm3 Baso # (Auto) (0.0-0.1) K/mm3 Abs Immat Gran (auto) (0.00-0.031) K/mm3 Absolute Neuts (auto) (1.3-6.7) K/mm3 Absolute Nucleated RBC (0.0-0.012) K/mm3 Nucleated RBC % (0.0-0.2) % Sodium (137-145) mmol/L Potassium (3.4-5.0) mmol/L Chloride (98-107) mmol/L Carbon Dioxide (22-30) mmol/L Anion Gap (4-12) mmol/L BUN (7-17) mg/dL Creatinine (0.7-1.0) mg/dL Estim Creat Clear Calc Estimated GFR (59 - ) Glucose (65-110) mg/dL POC Capillary Glucose 351 H (65-105) mg/dl Lactic Acid (0.7-2.0) mmol/L Calcium (8.4-10.2) mg/dL Magnesium (1.6-2.3) mg/dL Total Bilirubin (0.2-1.3) mg/dL AST (14-36) U/L ALT (6-35) U/L Alkaline Phosphatase (38-126) U/L Troponin I (0.000-0.034) ng/mL Total Protein (6.3-8.2) g/dL Albumin (3.5-5.1) g/dL Beta-Hydroxybutyrate/Acetoacetate (0.02-0.27) mmol/L Urine Color (Yellow) Urine Appearance (Clear) Urine pH (5.0-9.0) Ur Specific [place] (1.001-1.035) Urine Protein (Negative) mg/dL Urine Glucose (UA) (Negative) mg/dL Urine Ketones (Negative) mg/dL Ur Blood (Man) (Negative) Urine Nitrate (Negative) Urine Bilirubin (Negative) Urine Urobilinogen (<2.0) mg/dL Add Ur Microanalysis Leukocyte Esterase Rfl (Negative) [place]/UL Urine RBC (0-2) /hpf Urine WBC (0-3) /hpf Ur Squamous Epith Cells (Few) /hpf Urine Bacteria /hpf Urine Casts POC Urine HCG, Qual (Negative) Influenza A (RT-PCR) (Negative) Influenza B (RT-PCR) (Negative) RSV (RT-PCR) (Negative) SARS-CoV-2 RNA (RT-PCR) (Negative) ABG Data ABG results: 03/10/24 04:55 VBG pH 6.885 L* VBG pCO2 20.5 L* VBG pO2 49.3 H VBG HCO3 3.8 L O2 Delivery Device Room air O2 Liters/Min Not Reportable FiO2 21 ECG Data EKG #1: Attestation: I personally reviewed and interpreted this ECG as follows: ECG completion date: 03/10/24 ECG completion time: 04:48 Prior ECG tracings: not available for review Interpretation: Sinus tachycardia, rate 110, normal axis, no ST segment elevations or T-wave inversions concerning for ischemia, short CT of 104 but otherwise normal intervals with QTC of 416. Cardiology interpretation of an EKG in 2020 showed nonspecific T-wave changes in the inferior leads and was otherwise unremarkable. I am unable to view the EKG for direct comparison due to technical difficulties. Critical Care Time Critical Care Time Critical Care Time: Yes Total Critical Care Time: 35 Discharge Plan Discharge Clinical Impression: Sinus tachycardia DKA (diabetic ketoacidosis) Qualifiers: Diabetes mellitus type: other specified (including MO) Diabetes mellitus complication detail: without coma Qualified Code(s): E13.10 - Other specified diabetes mellitus with ketoacidosis without coma Patient Disposition: Still a Patient Condition: Serious Prescriptions: No Action PNV cmb#95-ferrous fumarate-FA [] 28 mg iron- 800 mcg Tablet 1 tablet PO DAILY insulin lispro 100 unit/mL Solution See Rx Instructions .ROUTE .COMPLEX Patient Comments: Insulin Pump Rx Instructions: Pt utilizes Insulin Pump based on carbs Will bring instructions on admission oxycodone-acetaminophen 5-325 mg tablet 1 tablet PO Q4H PRN (Reason: pain) Qty: 25 0RF Follow-up/Referrals: Dipak,ENID Goins [Primary Care Provider] - Time of Disposition: 07:21
[2024-03-10] MEDS: SODIUM CHLORIDE 0.9% IV 2,000 ML 999 ML IV CONT (05:18)
[2024-03-10 05:19] LABS: Fractional Inspired Oxygen 21 %; HCO3 VBG 3.8 mEq/l (24.0-30.0); PO2 VBG 49.3 mmHg (35.0-45.0)
[2024-03-10] MEDS: ONDANSETRON INJ 4 MG/2 ML VIAL IV PUSH (05:19)
[2024-03-10] MEDS: MORPHINE SULFATE (*CRX) 4 MG/ML INJ 2 MG IV PUSH (05:19)
[2024-03-10 05:20] LABS: Basophils Absolute Auto 0.2 K/mm3 (0.0-0.1); Basophils Percent Auto 1.4 % (0.2-1.2); Eosinophils Percent Auto 0.2 % (0-4.4); Hematocrit 50.7 % (37.0-47.0); Hemoglobin 16.4 g/dL (12.0-15.0); Immature Granulocyte Percent A 3.2 % (0-0.5); Lymphocytes Absolute Auto 2.85 K/mm3 (0.9-3.2); Lymphocytes Percent Auto 18.1 % (18.3-44.2); Mean Corpuscular HGB Conc 32.3 g/dl (32-36); Mean Corpuscular Hemoglobin 32.3 pg (26-34); Mean Corpuscular Volume 99.8 fl (80-100); Mean Platelet Volume 10.2 fl (7.4-10.4); Monocytes Absolute Auto 0.6 K/mm3 (0.1-0.6); Neutrophils Absolute Auto 11.5 K/mm3 (1.3-6.7); Neutrophils Percent Auto 73.1 % (45.5-73.1); Platelet Count Result 358 k/mm3 (150-375); Red Blood Count 5.08 M/mm3 (4.2-5.4); Red Cell Distribution Width 13.2 % (11.5-14.5); White Blood Count 15.7 K/mm3 (4.5-10.0)
[2024-03-10 05:20] LABS: pH VBG 6.885 (7.300-7.400)
[2024-03-10 05:21] LABS: Device ROOM AIR; PCO2 VBG 20.5 mmHg (42.0-48.0)
[2024-03-10 05:27] LABS: Glucose Point of Care 484 mg/dl (65-105)
[2024-03-10 05:39] LABS: Alanine Aminotransferase 15 U/L (6-35); Albumin Level 4.7 g/dL (3.5-5.1); Alkaline Phosphatase 118 U/L (38-126); Aspartate Amino Transferase 22 U/L (14-36); Bilirubin,Total 0.4 mg/dL (0.2-1.3); Blood Urea Nitrogen 12 mg/dL (7-17); Calcium 8.5 mg/dL (8.4-10.2); Carbon Dioxide < 5 mmol/L (22-30); Chloride 105 mmol/L (98-107); Estimated Glomerular Filt Rate > 60; Glucose 483 mg/dL (65-110); Magnesium 2.2 mg/dL (1.6-2.3); Potassium 4.2 mmol/L (3.4-5.0); Sodium 140 mmol/L (137-145)
[2024-03-10 05:41] LABS: Lactic Acid Reflex 2.5 mmol/L (0.7-2.0)
[2024-03-10] MEDS: INSULIN HUMAN REGULAR (*BKC) 100 UNITS/ML 9 UNITS IV PUSH (05:44)
[2024-03-10] MEDS: INSULIN HUMAN REGULAR (*BKC) 100 UNITS in SODIUM CHLORIDE 0.9% IV 99 ML 5.5 UNITS IV CONT (05:44)
[2024-03-10 05:52] LABS: Troponin I < 0.012 ng/mL (0.000-0.034)
[2024-03-10 06:17] LABS: BEDSIDEPREGUCG Negative (Negative)
[2024-03-10 06:22] LABS: Add Urine Microscopic? YES; Appearance Urine Clear (Clear); Bacteria Urine None Seen /hpf; Bilirubin Urine Negative (Negative); Blood Urine Negative (Negative); Color Urine Yellow (Yellow); Glucose Urine UA 3+ mg/dL (Negative); Ketones Urine 4+ mg/dL (Negative); Leukocyte Esterase Ur Negative LEU/UL (Negative); Need Manual Microscopic Reviewed; Nitrate Urine Negative (Negative); Protein Urine 1+ mg/dL (Negative); RBC Urine 0-2 /hpf (0-2); Specific Grav Ur 1.024 (1.001-1.035); Squamous Epithelial Cell Urine Occasional /hpf (Few); Urobilinogen Urine 0.2 mg/dL (<2.0)
[2024-03-10 06:26] LABS: Glucose Point of Care 382 mg/dl (65-105)
[2024-03-10] MEDS: SODIUM BICARBONATE 8.4% 150 MEQ in WATER, STERILE FOR INJECTION 950 ML 50 MEQ IV CONT (06:26)
[2024-03-10 07:08] LABS: Influenza A QL RT-PCR Negative (Negative); Influenza B QL RT-PCR Negative (Negative); RSV RNA, RT-PCR Negative (Negative); SARS-CoV-2 RNA PCR Negative (Negative)
[2024-03-10 07:12] LABS: Glucose Point of Care 351 mg/dl (65-105)
[2024-03-10 08:10] LABS: Glucose Point of Care 296 mg/dl (65-105)
[2024-03-10 08:16] LABS: Reflex Lactic Acid Yes or No Add Lactic
[2024-03-10 08:54] LABS: Glucose Point of Care 262 mg/dl (65-105)
[2024-03-10 08:59] LABS: Blood Urea Nitrogen 11 mg/dL (7-17); Calcium 7.5 mg/dL (8.4-10.2); Carbon Dioxide < 5 mmol/L (22-30); Chloride 110 mmol/L (98-107); Estimated Glomerular Filt Rate > 60; Glucose 260 mg/dL (65-110); Lactic Acid 2.6 mmol/L (0.7-2.0); Potassium 3.6 mmol/L (3.4-5.0); Sodium 142 mmol/L (137-145)
--- NOTE | 2024-03-10 09:22 | P.CONIN_ITS ---
Assessment and Plan Assessment and plan (1) DKA (diabetic ketoacidosis): Qualifiers: Diabetes mellitus complication detail: without coma Diabetes mellitus type: other specified (including MO) Qualified Code(s): E13.10 - Other specified diabetes mellitus with ketoacidosis without coma Code(s): E11.10 - Type 2 diabetes mellitus with ketoacidosis without coma Status: Acute Assessment and Plan: Pt was given IVF bolus and will be started on infusion Insulin infusion started and Q1H glucose monitoring is being done Serial labs ordered Will replace potassium. Replace electrolytes for the as needed Will transition to SC insulin once AG is closed Consult with the nurse informatics educator and dietitian Check HbA1c No objective evidence of infection at this time (2) Dehydration: Code(s): E86.0 - Dehydration Status: Acute Assessment and Plan: Will give additional 1 L IV fluid bolus followed by continued IV fluids as per D KA protocol (3) Acidosis: Code(s): E87.20 - Acidosis, unspecified Status: Acute Assessment and Plan: Significant metabolic acidosis. Patient was start IV fluids with bicarb in the ER. I will give that bag over 2 hours and then switch to regular IV fluids (4) Hypokalemia: Code(s): E87.6 - Hypokalemia Status: Acute Assessment and Plan: Potassium replacement ordered (5) Chest pressure: Code(s): R07.89 - Other chest pain Status: Acute Assessment and Plan: Noncardiac in nature Chest CTA negative Now resolved Plan DVT prophylaxis -SCDs Nutrition -npo Code Status - Full Code Total Critical Care Time - 30 minutes Due to a high probability of clinically significant, life threatening det erioration, the patient required my highest level of preparedness to intervene emergently and I personally spent this critical care time directly and personally managing the patient. This critical care time included obtaining a history; examining the patient; pulse oximetry; ordering and review of studies; arranging urgent treatment with development of a management plan; evaluation of patient's response to treatment; frequent reassessment; and discussions with other providers. It was exclusive of separately billable procedures and treating other patients and teaching time. Please see Assessment and Plan section and the rest of the note for further information on patient assessment and treatment Pressure Control Supervisor Consult Note Consult date: 03/10/24 Reason for consult: DKA HPI: Yolanda Troncoso is a 29 year old female with past medical history of diabetes and obesity presented with chief complaint of feeling sick. Patient was diagnosed with diabetes in 2019 and was on metformin. During CT to she went on insulin and was on insulin pump during her last . Post delivery she was on metformin at that quit taking it for 8-10 months ago. States she lost significant on weight at that time. She has not checked her sugars or seen primary care physician over last 8-10 months. Is over last few months she has been having excessive thirst and drinking lot of water. She was also have polyuria which he thought was related to her drinking lot of water. Yesterday patient started feeling sick and started having diarrhea but no abdominal pain. No blood in the stool. She also started having nausea vomiting with no blood in the vomitus. At 5 episodes of vomitus. She states she started breathing hard and deep and fast and that also led to chest pressure which was 7/10 with no radiation intermittent and worse with deep antwan athing. She denies any fever cough abdominal pain. All other systems were reviewed and were negative. She presented to ER was found to be in DKA. A CTA of the chest was done which was negative for any PE EKG shows sinus tachycardia. Patient has significant metabolic acidosis. She had elevated be to hydroxybutyrate, blood glucose. She also had elevated WBC and hemoglobin suggestive of hemoconcentration. Patient was given IV fluid bolus started on IV fluids and insulin infusion and being a dmitted to ICU for further evaluation management. She is feeling much better now and states her chest pressure and nausea has resolved she would like to drink some water. Review of Systems Review of Systems: All systems reviewed & are unremarkable except as noted in HPI and below (HPI) [facility] Past Medical History Medical History DM2 (diabetes mellitus, type 2) Missed ab Obesity Family History Family History Other No pertinent family history Social History Social History Smoking status: Never smoker Second hand tobacco smoke exposure: No Alcohol intake: never Substance use: never Substance use type: does not use Lack of Transportation: No Lack of Food: Never True Current Housing: I Have Housing Concerned About Future Housing: No Difficulty Paying Gas/Electric Bills: No Difficulty Paying for Meds: No Currently Unemployed: No Education: Bachelor's Degree Difficulty w/ Childcare or Family Care: No Living arrangements: with family Spiritual care concerns: No Meds Home Medications and Allergies Allergies Allergy/AdvReac Type Severity Reaction Status Date / Time hydrocodone AdvReac Swelling Verified 04/06/23 11:00 Vital Signs Vital Signs - 24 hr 03/10/24 04:39 03/10/24 06:18 03/10/24 05:13 Temperature 36.4 C L Pulse Rate 114 H 108 H 115 H Respiratory Rate 14 22 H Blood Pressure 126/85 130/84 Pulse Oximetry 100 100 Oxygen Delivery Room Air 03/10/24 05:15 03/10/24 05:16 03/10/24 05:30 Temperature Pulse Rate 114 H 114 H 109 H Respiratory Rate 21 H 23 H 20 Blood Pressure 130/82 Pulse Oximetry 100 100 100 Oxygen Delivery 03/10/24 05:45 03/10/24 06:00 03/10/24 06:01 Temperature Pulse Rate 117 H 115 H 119 H Respiratory Rate 22 H 19 20 Blood Pressure 128/85 126/78 Pulse Oximetry 100 Oxygen Delivery 03/10/24 06:02 03/10/24 06:15 03/10/24 05:10 Temperature Pulse Rate 119 H 109 H Respiratory Rate 21 H 17 24 H Blood Pressure Pulse Oximetry 100 100 100 Oxygen Delivery 03/10/24 07:00 03/10/24 07:30 03/10/24 08:00 Temperature 36.6 C 36.6 C Pulse Rate 149 H 124 H 128 H Respiratory Rate 23 H 23 H 16 Blood Pressure 128/80 130/82 128/84 Pulse Oximetry 100 100 100 Oxygen Delivery Results Labs 03/10/24 05:11 03/10/24 08:37 Labs: Impressions Chest X-Ray 03/10/24 06:10 IMPRESSION: 1. No acute cardiopulmonary disease. Chest CTA 03/10/24 07:04 IMPRESSION: 1. No pulmonary embolus. Sensitivity is severely decreased by motion artifact. Short CBC 03/10/24 Range/Units 05:11 WBC 15.7 H (4.5-10.0) K/mm3 Hgb 16.4 H D (12.0-15.0) g/dL Hct 50.7 H (37.0-47.0) % Plt Count 358 D (150-375) k/mm3 BMP 03/10/24 03/10/24 05:11 08:37 Sodium 140 142 Potassium 4.2 3.6 Chloride 105 110 H Carbon Dioxide < 5 L < 5 L BUN 12 D 11 Creatinine 0.70 0.60 L Glucose 483 H 260 H Calcium 8.5 7.5 L Cardiac Enzymes 03/10/24 Range/Units 05:11 Troponin I < 0.012 (0.000-0.034) ng/mL Liver Function 03/10/24 Range/Units 05:11 Total Bilirubin 0.4 (0.2-1.3) mg/dL AST 22 (14-36) U/L ALT 15 (6-35) U/L Alkaline Phosphatase 118 (38-126) U/L Albumin 4.7 (3.5-5.1) g/dL Urine 03/10/24 Range/Units 05:59 Urine Color Yellow (Yellow) Urine Appearance Clear (Clear) Urine pH 5.0 (5.0-9.0) Ur Specific [place] 1.024 (1.001-1.035) Urine Protein 1+ H (Negative) mg/dL Urine Glucose (UA) 3+ H (Negative) mg/dL ECG Interpretation: Sinus tachycardia, nonspecific ST T wave changes Quality VTE Prophylaxis VTE prophylaxis: mechanical ordered Hospitalist MIPS Advance Care Plan I have confirmed that the patient's Advanced Care Plan is present, code status is documented, or surrogate decision maker is listed in patient medical record.: Yes Medication Reconciliation I have utilized all available resources to obtain, update and review the patients current medications (includes all prescriptions, OTC, herbals, cannabis, and nutritional supplements).: Yes
[2024-03-10] MEDS: KCL 20 MEQ/D5/0.45% SOD CHL 1,000 ML 150 ML IV CONT ×3 (09:30→23:08)
--- NOTE | 2024-03-10 09:43 | PC.NURSE ---
Report received by ANGELINE De Souza with the ED at 0824. All questions answered and plan of care reviewed. Patient to transfer to ICU room 7.
--- NOTE | 2024-03-10 09:44 | ADMGEN ---
This patient, Yolanda Troncoso, was admitted to Intensive Care Unit-7 at 0848. Patient/family oriented to hospital policies and general routines including ID bracelet, bed and alarms, visiting hours, pain management, procedures, bathroom and other care routines, personal items, smoking policy, room service/diet, and visiting hours. Information on how to activate the Rapid Response Team has been discussed. Patient/Family are encouraged to report perceived risks to care and to ask questions if they do not understand what they are told or what they should do.
[2024-03-10] MEDS: POTASSIUM CHLORIDE 20 MEQ PACKET (FOR LIQUID) 40 MEQ PO (09:58)
[2024-03-10 10:10] LABS: Glucose Point of Care 207 mg/dl (65-105)
[2024-03-10] MEDS: ACETAMINOPHEN 325 MG TABLET 650 MG PO ×2 (10:11→16:10)
--- NOTE | 2024-03-10 10:22 | PC.NURSE ---
certified lactation educator called at 1023. Educator to come see patient.
[2024-03-10 11:18] LABS: Glucose Point of Care 188 mg/dl (65-105)
[2024-03-10 11:50] LABS: MRSA (PCR) NOT DETECTED (NOT DETECTE)
[2024-03-10 12:09] LABS: Glucose Point of Care 206 mg/dl (65-105)
[2024-03-10 13:08] LABS: Glucose Point of Care 182 mg/dl (65-105)
[2024-03-10 13:23] LABS: Anion Gap 20 mmol/L (4-12); Blood Urea Nitrogen 8 mg/dL (7-17); Calcium 7.1 mg/dL (8.4-10.2); Carbon Dioxide 6 mmol/L (22-30); Chloride 107 mmol/L (98-107); Estimated Glomerular Filt Rate > 60; Glucose 207 mg/dL (65-110); Potassium 3.9 mmol/L (3.4-5.0); Sodium 133 mmol/L (137-145)
[2024-03-10 14:04] LABS: Glucose Point of Care 236 mg/dl (65-105)
--- NOTE | 2024-03-10 14:44 | PM.IMHP ---
H&P: HPI History of Present Illness Date/Time: 03/10/24 14:44 Chief Complaint: Palpitation and abdominal pain Narrative: This is a 29-year-old female, with history of anxiety and diabetes, brought in by EMS from home for reports of a ?panic attack. ? The patient states over the past day, she developed nausea nonbloody vomiting and nonbloody diarrhea. In the past 2-3 hours, she developed the sensation of difficulty breathing as well as a sharp substernal chest pain that does not radiate. She states she has not taken her medications. ER was found to be in DKA. A CTA of the chest was done which was negative for any PE EKG shows sinus tachycardia. Patient has significant metabolic acidosis. She had elevated be to hydroxybutyrate, blood glucose. She also had elevated WBC and hemoglobin suggestive of hemoconcentration. Patient was given IV fluid bolus started on IV fluids and insulin infusion and being admitted to ICU for further evaluation management.Patient was diagnosed with diabetes in 2019 and was on metformin. Patient 1st time on March 05 where she needed insulin during the end of the but during her 2nd in July 2022 she was needing insulin from the beginning. After giving to the 2nd kid patient reports her blood sugar normalized and did not take any medications. Yesterday she started having increased labored breathing, abdominal pain and came to ER. Patient is currently transitioned to ICU. Review of Systems Review of Systems: All systems reviewed & are unremarkable except as noted in HPI and below (HPI) [facility] Past Medical History Medical History DM2 (diabetes mellitus, type 2) Missed ab Obesity Family History Family History Other No pertinent family history Social History Social History Smoking status: Never smoker Second hand tobacco smoke exposure: No Alcohol intake: never Substance use: never Substance use type: does not use Do You Feel Safe in your Home?: Yes Lack of Transportation: No Lack of Food: Never True Current Housing: I Have Housing Concerned About Future Housing: No Difficulty Paying Gas/Electric Bills: No Difficulty Paying for Meds: No Currently Unemployed: No Education: Bachelor's Degree Difficulty w/ Childcare or Family Care: No Living arrangements: with family Spiritual care concerns: No Meds Home Medications and Allergies Home Medications Medication Instructions Recorded Confirmed Type No Home Medications 03/10/24 03/10/24 History Allergies Allergy/AdvReac Type Severity Reaction Status Date / Time hydrocodone AdvReac Swelling Verified 04/06/23 11:00 Vital Signs Vital Signs - 24 hr 03/10/24 04:39 03/10/24 06:18 03/10/24 05:13 Temperature 97.5 F L Pulse Rate 114 H 108 H 115 H Respiratory Rate 14 22 H Blood Pressure 126/85 130/84 Pulse Oximetry 100 100 Oxygen Delivery Room Air 03/10/24 05:15 03/10/24 05:16 03/10/24 05:30 Temperature Pulse Rate 114 H 114 H 109 H Respiratory Rate 21 H 23 H 20 Blood Pressure 130/82 Pulse Oximetry 100 100 100 Oxygen Delivery 03/10/24 05:45 03/10/24 06:00 03/10/24 06:01 Temperature Pulse Rate 117 H 115 H 119 H Respiratory Rate 22 H 19 20 Blood Pressure 128/85 126/78 Pulse Oximetry 100 Oxygen Delivery 03/10/24 06:02 03/10/24 06:15 03/10/24 05:10 Temperature Pulse Rate 119 H 109 H Respiratory Rate 21 H 17 24 H Blood Pressure Pulse Oximetry 100 100 100 Oxygen Delivery 03/10/24 07:00 03/10/24 07:30 03/10/24 08:00 Temperature 97.9 F 97.8 F Pulse Rate 149 H 124 H 128 H Respiratory Rate 23 H 23 H 16 Blood Pressure 128/80 130/82 128/84 Pulse Oximetry 100 100 100 Oxygen Delivery 03/10/24 10:00 03/10/24 10:00 03/10/24 08:48 Temperature 98.3 F Pulse Rate 108 H 108 H 122 H Respiratory Rate 20 28 H Blood Pressure 95/67 L 108/76 Pulse Oximetry 100 100 Oxygen Delivery 03/10/24 11:15 03/10/24 12:00 03/10/24 14:00 Temperature 97.9 F Pulse Rate 106 H 104 H 102 H Respiratory Rate 18 16 16 Blood Pressure 92/63 L 96/63 L 98/61 L Pulse Oximetry 100 100 99 Oxygen Delivery 03/10/24 14:00 03/10/24 12:00 Temperature Pulse Rate 101 H 106 H Respiratory Rate Blood Pressure Pulse Oximetry Oxygen Delivery Exam Narrative: GENERAL: Well-developed, well-nourished, in [id number] moderate distress HEAD: Normocephalic, atraumatic. EYES: PERRLA and EOMI. ENT: Nares clear, no rhinorrhea or epistaxis. Mucous membranes dry. Oropharynx without tonsillar hypertrophy exudate or other lesions. CHEST: Clear to auscultation. Tachypneic and appears to be in [id number] respiratory distress. No wheezes rales or rhonchi HEART: Tachycardic with regular rhythm. No murmur heard. Normal peripheral pulses. ABDOMEN: Soft, nontender, nondistended, normal active bowel sounds. EXTREMITIES: Normal range of motion. No edema. SKIN: Warm, dry, no rash. NEURO: Alert and oriented x3. No focal deficit. Moving all 4 limbs spontaneously PSYCH: Normal mood and affect. H&P: Results Labs Labs: Short CBC 03/10/24 Range/Units 05:11 WBC 15.7 H (4.5-10.0) K/mm3 Hgb 16.4 H D (12.0-15.0) g/dL Hct 50.7 H (37.0-47.0) % Plt Count 358 D (150-375) k/mm3 BMP 03/10/24 03/10/24 03/10/24 05:11 08:37 13:05 Sodium 140 142 133 L Potassium 4.2 3.6 3.9 Chloride 105 110 H 107 Carbon Dioxide < 5 L < 5 L 6 L BUN 12 D 11 8 Creatinine 0.70 0.60 L 0.40 L Glucose 483 H 260 H 207 H Calcium 8.5 7.5 L 7.1 L Cardiac Enzymes 03/10/24 Range/Units 05:11 Troponin I < 0.012 (0.000-0.034) ng/mL Liver Function 03/10/24 Range/Units 05:11 Total Bilirubin 0.4 (0.2-1.3) mg/dL AST 22 (14-36) U/L ALT 15 (6-35) U/L Alkaline Phosphatase 118 (38-126) U/L Albumin 4.7 (3.5-5.1) g/dL Urine 03/10/24 Range/Units 05:59 Urine Color Yellow (Yellow) Urine Appearance Clear (Clear) Urine pH 5.0 (5.0-9.0) Ur Specific [place] 1.024 (1.001-1.035) Urine Protein 1+ H (Negative) mg/dL Urine Glucose (UA) 3+ H (Negative) mg/dL Assessment and Plan Assessment and plan (1) DKA (diabetic ketoacidosis): Qualifiers: Diabetes mellitus complication detail: without coma Diabetes mellitus type: other specified (including MO) Qualified Code(s): E13.10 - Other specified diabetes mellitus with ketoacidosis without coma Code(s): E11.10 - Type 2 diabetes mellitus with ketoacidosis without coma Status: Acute Assessment and Plan: Pt was given IVF bolus and will be started on infusion Insulin infusion started and Q1H glucose monitoring is being done Serial labs ordered Will replace potassium. Replace electrolytes for the as needed Will transition to SC insulin once AG is closed Consult with the nurse educator and dietitian Check HbA1c No objective evidence of infection at this time (2) Dehydration: Code(s): E86.0 - Dehydration Status: Acute Assessment and Plan: Will give additional 1 L IV fluid bolus followed by continued IV fluids as per DKA protocol (3) Acidosis: Code(s): E87.20 - Acidosis, unspecified Status: Acute Assessment and Plan: Significant metabolic acidosis. Patient was start IV fluids with bicarb in the ER. I will give that bag over 2 hours and then switch to regular IV fluids (4) Hypokalemia: Code(s): E87.6 - Hypokalemia Status: Acute Assessment and Plan: Potassium replacement ordered (5) Chest pressure: Code(s): R07.89 - Other chest pain Status: Acute Assessment and Plan: Noncardiac in nature Chest CTA negative Now resolved Quality VTE Prophylaxis VTE prophylaxis: mechanical ordered Hospitalist MIPS Advance Care Plan I have confirmed that the patient's Advanced Care Plan is present, code status is documented, or surrogate decision maker is listed in patient medical record.: Yes Medication Reconciliation I have utilized all available resources to obtain, update and review the patients current medications (includes all prescriptions, OTC, herbals, cannabis, and nutritional supplements).: Yes
[2024-03-10] MEDS: CALCIUM GLUC 2,000 MG/NS 100ML 2,000 MG/100 ML BAG 100 MG IVPB (15:02)
[2024-03-10 15:08] LABS: Glucose Point of Care 252 mg/dl (65-105)
[2024-03-10 16:11] LABS: Glucose Point of Care 241 mg/dl (65-105)
[2024-03-10 17:04] LABS: Glucose Point of Care 243 mg/dl (65-105)
[2024-03-10 17:46] LABS: Anion Gap 15 mmol/L (4-12); Blood Urea Nitrogen 6 mg/dL (7-17); Calcium 8.3 mg/dL (8.4-10.2); Carbon Dioxide 10 mmol/L (22-30); Chloride 107 mmol/L (98-107); Estimated Glomerular Filt Rate > 60; Glucose 242 mg/dL (65-110); Potassium 3.2 mmol/L (3.4-5.0); Sodium 132 mmol/L (137-145)
[2024-03-10 18:18] LABS: Glucose Point of Care 245 mg/dl (65-105)
[2024-03-10] MEDS: POTASSIUM CHLORIDE 20 MEQ ER TABLET 60 MEQ PO (18:55)
[2024-03-10 19:00] LABS: Glucose Point of Care 232 mg/dl (65-105)
[2024-03-10 19:44] LABS: Glucose Point of Care 272 mg/dl (65-105)
[2024-03-10 20:55] LABS: Glucose Point of Care 233 mg/dl (65-105)
[2024-03-10 21:34] LABS: Anion Gap 14 mmol/L (4-12); Blood Urea Nitrogen 5 mg/dL (7-17); Calcium 8.2 mg/dL (8.4-10.2); Carbon Dioxide 12 mmol/L (22-30); Chloride 107 mmol/L (98-107); Estimated Glomerular Filt Rate > 60; Glucose 230 mg/dL (65-110); Potassium 3.9 mmol/L (3.4-5.0); Sodium 133 mmol/L (137-145)
[2024-03-10 21:42] LABS: Hemoglobin A1C > 14.0 % (<5.7)
[2024-03-10 21:52] LABS: Glucose Point of Care 210 mg/dl (65-105)
[2024-03-10 23:01] LABS: Glucose Point of Care 198 mg/dl (65-105)
[2024-03-11] VITALS (11 sets, daily range): BP systolic 88–108; BP diastolic 59–70; PULSE 80–102; RESP 13–20; TEMP 36.4–37; O2SAT 98–100
[2024-03-11 00:03] LABS: Glucose Point of Care 213 mg/dl (65-105)
[2024-03-11 00:56] LABS: Glucose Point of Care 227 mg/dl (65-105)
[2024-03-11 01:30] LABS: Anion Gap 9 mmol/L (4-12); Blood Urea Nitrogen 4 mg/dL (7-17); Carbon Dioxide 15 mmol/L (22-30); Chloride 109 mmol/L (98-107); Estimated Glomerular Filt Rate > 60; Glucose 217 mg/dL (65-110); Potassium 4.3 mmol/L (3.4-5.0); Sodium 133 mmol/L (137-145)
[2024-03-11 02:00] LABS: Glucose Point of Care 224 mg/dl (65-105)
[2024-03-11 02:59] LABS: Glucose Point of Care 222 mg/dl (65-105)
[2024-03-11 04:03] LABS: Glucose Point of Care 228 mg/dl (65-105)
[2024-03-11 05:06] LABS: Glucose Point of Care 207 mg/dl (65-105)
[2024-03-11] MEDS: KCL 20 MEQ/D5/0.45% SOD CHL 1,000 ML 150 ML IV CONT (05:31)
[2024-03-11 05:35] LABS: Basophils Percent Auto 0.5 % (0.2-1.2); Eosinophils Absolute Auto 0.1 K/mm3 (0-0.3); Eosinophils Percent Auto 1.5 % (0-4.4); Hematocrit 35.8 % (37.0-47.0); Immature Granulocyte Percent A 1.3 % (0-0.5); Lymphocytes Absolute Auto 3.01 K/mm3 (0.9-3.2); Lymphocytes Percent Auto 37.6 % (18.3-44.2); Mean Corpuscular HGB Conc 33.5 g/dl (32-36); Mean Corpuscular Hemoglobin 31.6 pg (26-34); Mean Corpuscular Volume 94.2 fl (80-100); Mean Platelet Volume 9.7 fl (7.4-10.4); Monocytes Absolute Auto 0.7 K/mm3 (0.1-0.6); Monocytes Percent Auto 8.1 % (2.6-8.5); Neutrophils Absolute Auto 4.1 K/mm3 (1.3-6.7); Platelet Count Result 180 k/mm3 (150-375); Red Cell Distribution Width 13.3 % (11.5-14.5)
[2024-03-11 05:45] LABS: Alanine Aminotransferase 10 U/L (6-35); Albumin Level 2.7 g/dL (3.5-5.1); Alkaline Phosphatase 58 U/L (38-126); Anion Gap 11 mmol/L (4-12); Aspartate Amino Transferase 13 U/L (14-36); Bilirubin,Total 0.3 mg/dL (0.2-1.3); Blood Urea Nitrogen 4 mg/dL (7-17); Calcium 7.9 mg/dL (8.4-10.2); Carbon Dioxide 14 mmol/L (22-30); Chloride 110 mmol/L (98-107); Estimated Glomerular Filt Rate > 60; Glucose 236 mg/dL (65-110); Magnesium 1.7 mg/dL (1.6-2.3); Phosphorus 1.6 mg/dL (2.5-4.5); Potassium 4.1 mmol/L (3.4-5.0); Sodium 135 mmol/L (137-145)
[2024-03-11 06:51] LABS: Glucose Point of Care 246 mg/dl (65-105)
[2024-03-11 08:03] LABS: Glucose Point of Care 272 mg/dl (65-105)
[2024-03-11] MEDS: POTASSIUM/PHOSPHORUS/SODIUM 1.5 GM PACKET 1 PACKET PO (08:25)
[2024-03-11] MEDS: INSULIN GLARGINE (*BKC) 100 UNITS/ML 15 UNITS SUB-Q (08:25)
--- NOTE | 2024-03-11 08:51 | P.PNINT_ITS ---
Progress Note: A&P Assessment and Plan (1) DKA (diabetic ketoacidosis): Qualifiers: Diabetes mellitus complication detail: without coma Diabetes mellitus type: other specified (including MO) Qualified Code(s): E13.10 - Other specified diabetes mellitus with ketoacidosis without coma Code(s): E11.10 - Type 2 diabetes mellitus with ketoacidosis without coma Status: Acute Assessment and Plan: Pt was given IVF bolus and will be started on infusion Insulin infusion started and Q1H glucose monitoring is being done Serial labs ordered Anion gap closed and patient clinically improved Will start diet and transition SC insulin Consult with the family living educator and dietitian Reviewed HbA1c No objective evidence of infection at this time (2) Dehydration: Code(s): E86.0 - Dehydration Status: Acute Assessment and Plan: Improved with IV fluid (3) Acidosis: Code(s): E87.20 - Acidosis, unspecified Status: Acute Assessment and Plan: Significant metabolic acidosis. Improved but not completely resolved Continue treatment (4) Hypokalemia: Code(s): E87.6 - Hypokalemia Status: Acute Assessment and Plan: Improved with Potassium replacement (5) Chest pressure: Code(s): R07.89 - Other chest pain Status: Acute Assessment and Plan: Noncardiac in nature Chest CTA negative Now resolved Plan DVT prophylaxis -anticipate patient will ambulate today, Nutrition -diet or Code Status - Full Code Incentive spirometry, up ad elidia Transfer out of ICU Subjective Date/time seen: 03/11/24 Overnight events reviewed. Afebrile Denies any new symptoms today. Feels better. Denies any nausea vomiting. Wants to eat food. Patient denies fever, chest pain, shortness of breath, cough, nausea vomiting, abdominal pain,, diarrhea, headache or constipation.. All other systems were reviewed and were negative Good urine output Other Vitals acceptable Review of Systems Review of Systems: All systems reviewed & are unremarkable except as noted in HPI and below (HPI) Exam Narrative: General: Pt is alert awake and in NAD Lungs/Chest: Trachea central Clear BS B/L, No crackles or wheezing. Cardiac: RRR. Normal S1 S2. No murmurs Circulation: Pedal pulses are intact and symmetrical. Abdomen: Normal bowel sounds.. Soft. NT. ND. Extremities: No clubbing, cyanosis or edema. Warm : Gutiérrez in place Neurologic: Follows commands. Moves all 4 extremities PERRL AO x 3 Skin: No Rash Objective Data Vital Signs Vital Signs: Vital Signs - 24 hr 03/10/24 10:00 03/10/24 10:00 03/10/24 11:15 Temperature 36.6 C Pulse Rate 108 H 108 H 106 H Respiratory Rate 20 18 Blood Pressure 95/67 L 92/63 L Pulse Oximetry 100 100 Oxygen Delivery 03/10/24 12:00 03/10/24 14:00 03/10/24 14:00 Temperature Pulse Rate 104 H 102 H 101 H Respiratory Rate 16 16 Blood Pressure 96/63 L 98/61 L Pulse Oximetry 100 99 Oxygen Delivery 03/10/24 12:00 03/10/24 15:01 03/10/24 16:00 Temperature 37.2 C 36.8 C Pulse Rate 106 H 98 101 H Respiratory Rate 16 Blood Pressure 101/60 98/64 L Pulse Oximetry 98 Oxygen Delivery 03/10/24 18:00 03/10/24 16:00 03/10/24 18:00 Temperature Pulse Rate 104 H 104 H 95 Respiratory Rate 17 Blood Pressure 96/71 L Pulse Oximetry 100 Oxygen Delivery 03/10/24 20:00 03/10/24 20:12 03/10/24 20:00 Temperature 36.8 C Pulse Rate 102 H 102 H Respiratory Rate 18 Blood Pressure 89/60 L Pulse Oximetry 100 100 Oxygen Delivery Room Air 03/10/24 22:08 03/10/24 22:00 03/11/24 00:09 Temperature 36.9 C 37.0 C Pulse Rate 101 H 85 90 Respiratory Rate 14 14 Blood Pressure 99/60 L 90/59 L Pulse Oximetry 100 99 Oxygen Delivery 03/11/24 00:00 03/11/24 00:00 03/11/24 02:00 Temperature Pulse Rate 91 87 Respiratory Rate Blood Pressure Pulse Oximetry 100 Oxygen Delivery Room Air 03/11/24 02:00 03/11/24 04:00 03/11/24 04:00 Temperature Pulse Rate 87 82 Respiratory Rate 14 Blood Pressure 99/68 L Pulse Oximetry 98 100 Oxygen Delivery Room Air 03/11/24 04:00 03/11/24 06:00 03/11/24 06:00 Temperature 37.0 C 37.0 C Pulse Rate 80 91 96 Respiratory Rate 13 18 Blood Pressure 88/67 L 100/70 Pulse Oximetry 98 100 Oxygen Delivery 03/11/24 08:00 Temperature 36.6 C Pulse Rate 98 Respiratory Rate 14 Blood Pressure 99/69 L Pulse Oximetry 100 Oxygen Delivery Intake/Output Intake/Output: Intake & Output 03/08/24 03/09/24 03/10/24 03/11/24 23:59 23:59 23:59 23:59 Intake Total 5146.4 966.5 Output Total 1400 600 Balance 3746.4 366.5 Meds/Results Medications: Active Medications Generic Name Dose Route Start Last Admin Trade Name Freq PRN Reason Stop Dose Admin Acetaminophen 650 mg 03/10/24 09:55 03/10/24 16:10 Acetaminophen 325 Mg Tablet PO 650 mg Q4H PRN Administration Headache, Mild Pain or Fever Dextrose 12.5 gm 03/10/24 07:25 Dextrose 50% 25 Gm/50 Ml Syringe IV PUSH PRN PRN Hypoglycemia Protocol Glucagon 1 mg 03/10/24 07:25 Glucagon For Inj 1 Mg Vial IM PRN PRN Hypoglycemia Protocol Glucose 15 gm 03/10/24 07:25 Glucose Oral Gel 15 Gm Of Glucse In 37.5 Gm Tube PO PRN PRN Hypoglycemia Protocol Insulin Human Regular 100 100 mls @ 1 mls/hr 03/10/24 05:25 03/11/24 08:03 units/ Sodium Chloride IV CONT 03/11/24 09:00 2 units/hr .Q24H EVA 2 mls/hr Titration Protocol 1 UNITS/HR Potassium Chloride/Dextrose/Sod Cl 1,000 mls @ 150 mls/hr 03/10/24 07:25 03/11/24 05:31 Kcl 20 Meq/D5/0.45% Sod Chl IV CONT 03/11/24 09:00 150 mls/hr .Q6H40M EVA Administration Dextrose 1,000 mls @ 100 mls/hr 03/10/24 07:25 Dextrose 5% 1,000 Ml IVPB PRN PRN Hypoglycemia Protocol Insulin Aspart 4 units 03/11/24 12:00 Insulin Aspart (*Bkc) 100 Units/Ml 0.067 units/kg (4 units) SUB-Q TIDWM EVA Insulin Aspart 2 - 5 units 03/11/24 12:00 Insulin Aspart (*Bkc) 100 Units/Ml SUB-Q TIDWM EVA Protocol Insulin Aspart 1 - 2 units 03/11/24 21:00 Insulin Aspart (*Bkc) 100 Units/Ml SUB-Q HS [facility] Protocol Insulin Glargine 15 units 03/11/24 09:00 03/11/24 08:25 Insulin Glargine (*Bkc) 100 Units/Ml SUB-Q 15 units QAM [facility] Administration Radiology Results: ITS Impressions Chest X-Ray 03/10/24 06:10 IMPRESSION: 1. No acute cardiopulmonary disease. Chest CTA 03/10/24 07:04 IMPRESSION: 1. No pulmonary embolus. Sensitivity is severely decreased by motion artifact. Labs Labs: Laboratory Results - last 24 hr 03/10/24 03/10/24 03/10/24 08:37 08:52 10:01 WBC RBC Hgb Hct MCV MCH MCHC RDW Plt Count MPV Immature Gran % (Auto) Neut % (Auto) Lymph % (Auto) [place] % (Auto) Eos % (Auto) Baso % (Auto) Lymph # (Auto) [place] # (Auto) Eos # (Auto) Baso # (Auto) Abs Immat Gran (auto) Absolute Neuts (auto) Absolute Nucleated RBC Nucleated RBC % Sodium 142 Potassium 3.6 Chloride 110 H Carbon Dioxide < 5 L Anion Gap BUN 11 Creatinine 0.60 L Estim Creat Clear Calc Not Reportable Estimated GFR > 60 Glucose 260 H POC Capillary Glucose 262 H 207 H Hemoglobin A1c Lactic Acid 2.6 H Calcium 7.5 L Phosphorus Magnesium Total Bilirubin AST ALT Alkaline Phosphatase Total Protein Albumin Nasal MRSA (PCR) 03/10/24 03/10/24 03/10/24 10:06 11:00 12:05 WBC RBC Hgb Hct MCV MCH MCHC RDW Plt Count MPV Immature Gran % (Auto) Neut % (Auto) Lymph % (Auto) [place] % (Auto) Eos % (Auto) Baso % (Auto) Lymph # (Auto) [place] # (Auto) Eos # (Auto) Baso # (Auto) Abs Immat Gran (auto) Absolute Neuts (auto) Absolute Nucleated RBC Nucleated RBC % Sodium Potassium Chloride Carbon Dioxide Anion Gap BUN Creatinine Estim Creat Clear Calc Estimated GFR Glucose POC Capillary Glucose 188 H 206 H Hemoglobin A1c Lactic Acid Calcium Phosphorus Magnesium Total Bilirubin AST ALT Alkaline Phosphatase Total Protein Albumin Nasal MRSA (PCR) Not detected 03/10/24 03/10/24 03/10/24 13:00 13:05 13:58 WBC RBC Hgb Hct MCV MCH MCHC RDW Plt Count MPV Immature Gran % (Auto) Neut % (Auto) Lymph % (Auto) [place] % (Auto) Eos % (Auto) Baso % (Auto) Lymph # (Auto) [place] # (Auto) Eos # (Auto) Baso # (Auto) Abs Immat Gran (auto) Absolute Neuts (auto) Absolute Nucleated RBC Nucleated RBC % Sodium 133 L Potassium 3.9 Chloride 107 Carbon Dioxide 6 L Anion Gap 20 H BUN 8 Creatinine 0.40 L Estim Creat Clear Calc Not Reportable Estimated GFR > 60 Glucose 207 H POC Capillary Glucose 182 H 236 H Hemoglobin A1c Lactic Acid Calcium 7.1 L Phosphorus Magnesium Total Bilirubin AST ALT Alkaline Phosphatase Total Protein Albumin Nasal MRSA (PCR) 03/10/24 03/10/24 03/10/24 14:59 16:07 16:57 WBC RBC Hgb Hct MCV MCH MCHC RDW Plt Count MPV Immature Gran % (Auto) Neut % (Auto) Lymph % (Auto) [place] % (Auto) Eos % (Auto) Baso % (Auto) Lymph # (Auto) [place] # (Auto) Eos # (Auto) Baso # (Auto) Abs Immat Gran (auto) Absolute Neuts (auto) Absolute Nucleated RBC Nucleated RBC % Sodium Potassium Chloride Carbon Dioxide Anion Gap BUN Creatinine Estim Creat Clear Calc Estimated GFR Glucose POC Capillary Glucose 252 H 241 H 243 H Hemoglobin A1c Lactic Acid Calcium Phosphorus Magnesium Total Bilirubin AST ALT Alkaline Phosphatase Total Protein Albumin Nasal MRSA (PCR) 03/10/24 03/10/24 03/10/24 17:24 18:08 18:54 WBC RBC Hgb Hct MCV MCH MCHC RDW Plt Count MPV Immature Gran % (Auto) Neut % (Auto) Lymph % (Auto) [place] % (Auto) Eos % (Auto) Baso % (Auto) Lymph # (Auto) [place] # (Auto) Eos # (Auto) Baso # (Auto) Abs Immat Gran (auto) Absolute Neuts (auto) Absolute Nucleated RBC Nucleated RBC % Sodium 132 L Potassium 3.2 L Chloride 107 Carbon Dioxide 10 L Anion Gap 15 H BUN 6 L Creatinine 0.40 L Estim Creat Clear Calc Not Reportable Estimated GFR > 60 Glucose 242 H POC Capillary Glucose 245 H 232 H Hemoglobin A1c Lactic Acid Calcium 8.3 L Phosphorus Magnesium Total Bilirubin AST ALT Alkaline Phosphatase Total Protein Albumin Nasal MRSA (PCR) 03/10/24 03/10/24 03/10/24 19:40 20:50 21:20 WBC RBC Hgb Hct MCV MCH MCHC RDW Plt Count MPV Immature Gran % (Auto) Neut % (Auto) Lymph % (Auto) [place] % (Auto) Eos % (Auto) Baso % (Auto) Lymph # (Auto) [place] # (Auto) Eos # (Auto) Baso # (Auto) Abs Immat Gran (auto) Absolute Neuts (auto) Absolute Nucleated RBC Nucleated RBC % Sodium 133 L Potassium 3.9 Chloride 107 Carbon Dioxide 12 L Anion Gap 14 H BUN 5 L Creatinine 0.40 L Estim Creat Clear Calc Not Reportable Estimated GFR > 60 Glucose 230 H POC Capillary Glucose 272 H 233 H Hemoglobin A1c > 14.0 H Lactic Acid Calcium 8.2 L Phosphorus Magnesium Total Bilirubin AST ALT Alkaline Phosphatase Total Protein Albumin Nasal MRSA (PCR) 03/10/24 03/10/24 03/10/24 21:50 22:58 23:57 WBC RBC Hgb Hct MCV MCH MCHC RDW Plt Count MPV Immature Gran % (Auto) Neut % (Auto) Lymph % (Auto) [place] % (Auto) Eos % (Auto) Baso % (Auto) Lymph # (Auto) [place] # (Auto) Eos # (Auto) Baso # (Auto) Abs Immat Gran (auto) Absolute Neuts (auto) Absolute Nucleated RBC Nucleated RBC % Sodium Potassium Chloride Carbon Dioxide Anion Gap BUN Creatinine Estim Creat Clear Calc Estimated GFR Glucose POC Capillary Glucose 210 H 198 H 213 H Hemoglobin A1c Lactic Acid Calcium Phosphorus Magnesium Total Bilirubin AST ALT Alkaline Phosphatase Total Protein Albumin Nasal MRSA (PCR) 03/11/24 03/11/24 03/11/24 00:53 01:15 01:58 WBC RBC Hgb Hct MCV MCH MCHC RDW Plt Count MPV Immature Gran % (Auto) Neut % (Auto) Lymph % (Auto) [place] % (Auto) Eos % (Auto) Baso % (Auto) Lymph # (Auto) [place] # (Auto) Eos # (Auto) Baso # (Auto) Abs Immat Gran (auto) Absolute Neuts (auto) Absolute Nucleated RBC Nucleated RBC % Sodium 133 L Potassium 4.3 Chloride 109 H Carbon Dioxide 15 L Anion Gap 9 BUN 4 L Creatinine 0.40 L Estim Creat Clear Calc Not Reportable Estimated GFR > 60 Glucose 217 H POC Capillary Glucose 227 H 224 H Hemoglobin A1c Lactic Acid Calcium 8.0 L Phosphorus Magnesium Total Bilirubin AST ALT Alkaline Phosphatase Total Protein Albumin Nasal MRSA (PCR) 03/11/24 03/11/24 03/11/24 02:56 04:01 05:03 WBC RBC Hgb Hct MCV MCH MCHC RDW Plt Count MPV Immature Gran % (Auto) Neut % (Auto) Lymph % (Auto) [place] % (Auto) Eos % (Auto) Baso % (Auto) Lymph # (Auto) [place] # (Auto) Eos # (Auto) Baso # (Auto) Abs Immat Gran (auto) Absolute Neuts (auto) Absolute Nucleated RBC Nucleated RBC % Sodium Potassium Chloride Carbon Dioxide Anion Gap BUN Creatinine Estim Creat Clear Calc Estimated GFR Glucose POC Capillary Glucose 222 H 228 H 207 H Hemoglobin A1c Lactic Acid Calcium Phosphorus Magnesium Total Bilirubin AST ALT Alkaline Phosphatase Total Protein Albumin Nasal MRSA (PCR) 03/11/24 03/11/24 03/11/24 05:25 06:47 08:00 WBC 8.0 RBC 3.80 L Hgb 12.0 D Hct 35.8 L MCV 94.2 D MCH 31.6 MCHC 33.5 RDW 13.3 Plt Count 180 MPV 9.7 Immature Gran % (Auto) 1.3 H Neut % (Auto) 51.0 Lymph % (Auto) 37.6 [place] % (Auto) 8.1 Eos % (Auto) 1.5 Baso % (Auto) 0.5 Lymph # (Auto) 3.01 [place] # (Auto) 0.7 H Eos # (Auto) 0.1 Baso # (Auto) 0.0 Abs Immat Gran (auto) 0.10 H Absolute Neuts (auto) 4.1 Absolute Nucleated RBC 0.000 Nucleated RBC % 0.0 Sodium 135 L Potassium 4.1 Chloride 110 H Carbon Dioxide 14 L Anion Gap 11 BUN 4 L Creatinine 0.30 L Estim Creat Clear Calc Not Reportable Estimated GFR > 60 Glucose 236 H POC Capillary Glucose 246 H 272 H Hemoglobin A1c Lactic Acid Calcium 7.9 L Phosphorus 1.6 L Magnesium 1.7 Total Bilirubin 0.3 AST 13 L ALT 10 Alkaline Phosphatase 58 Total Protein 6.0 L Albumin 2.7 L Nasal MRSA (PCR) Quality VTE Prophylaxis VTE prophylaxis: mechanical ordered
[2024-03-11 09:17] LABS: Glucose Point of Care 224 mg/dl (65-105)
[2024-03-11 10:25] LABS: Glucose Point of Care 278 mg/dl (65-105)
[2024-03-11] MEDS: INSULIN ASPART (*BKC) 100 UNITS/ML SUB-Q ×5 (11:54→20:40)
[2024-03-11 12:11] LABS: Glucose Point of Care 222 mg/dl (65-105)
--- NOTE | 2024-03-11 12:18 | P.PNIM_ITS ---
Progress Note: A&P Assessment and Plan (1) DKA (diabetic ketoacidosis): Qualifiers: Diabetes mellitus complication detail: without coma Diabetes mellitus type: other specified (including [place]) Qualified Code(s): E13.10 - Other specified diabetes mellitus with ketoacidosis without coma Code(s): E11.10 - Type 2 diabetes mellitus with ketoacidosis without coma Status: Acute Assessment and Plan: AG closed. Off iv insulin To medical floor Needs insulin pump and CGM piror to discharge (2) Dehydration: Code(s): E86.0 - Dehydration Status: Acute Assessment and Plan: Resolved (3) Acidosis: Code(s): E87.20 - Acidosis, unspecified Status: Acute Assessment and Plan: DKA resolved (4) Hypokalemia: Code(s): E87.6 - Hypokalemia Status: Acute Assessment and Plan: Resolved (5) Chest pressure: Code(s): R07.89 - Other chest pain Status: Acute Assessment and Plan: Noncardiac in nature Chest CTA negative Now resolved Subjective Date/time seen: 03/11/24 12:18 Interval history: Feeling much better. Tolerating diet. Review of Systems Review of Systems: All systems reviewed & are unremarkable except as noted in HPI and below Exam Const: Other: General: In adult female in no acute distress Neck: No JVD Chest: CTA Heart: Normal S1, S2 regular rate no murmur Abdomen: Bowel sounds present soft nontender Extremities: No edema Neurologic: Cranial nerves symmetric to inspection Musculoskeletal: No gross deformity to inspection Psychiatric: Alert oriented person place and time. Pleasant and cooperative Objective Data Vital Signs Vital Signs: Vital Signs - 24 hr 03/10/24 14:00 03/10/24 14:00 03/10/24 15:01 Temperature 99 F Pulse Rate 102 H 101 H 98 Respiratory Rate 16 Blood Pressure 98/61 L 101/60 Pulse Oximetry 99 Oxygen Delivery 03/10/24 16:00 03/10/24 18:00 03/10/24 16:00 Temperature 98.3 F Pulse Rate 101 H 104 H 104 H Respiratory Rate 16 17 Blood Pressure 98/64 L 96/71 L Pulse Oximetry 98 100 Oxygen Delivery 03/10/24 18:00 03/10/24 20:00 03/10/24 20:12 Temperature 98.3 F Pulse Rate 95 102 H Respiratory Rate 18 Blood Pressure 89/60 L Pulse Oximetry 100 100 Oxygen Delivery Room Air 03/10/24 20:00 03/10/24 22:08 03/10/24 22:00 Temperature 98.5 F Pulse Rate 102 H 101 H 85 Respiratory Rate 14 Blood Pressure 99/60 L Pulse Oximetry 100 Oxygen Delivery 03/11/24 00:09 03/11/24 00:00 03/11/24 00:00 Temperature 98.6 F Pulse Rate 90 91 Respiratory Rate 14 Blood Pressure 90/59 L Pulse Oximetry 99 100 Oxygen Delivery Room Air 03/11/24 02:00 03/11/24 02:00 03/11/24 04:00 Temperature Pulse Rate 87 87 Respiratory Rate 14 Blood Pressure 99/68 L Pulse Oximetry 98 100 Oxygen Delivery Room Air 03/11/24 04:00 03/11/24 04:00 03/11/24 06:00 Temperature 98.6 F 98.6 F Pulse Rate 82 80 91 Respiratory Rate 13 18 Blood Pressure 88/67 L 100/70 Pulse Oximetry 98 100 Oxygen Delivery 03/11/24 06:00 03/11/24 08:00 03/11/24 08:00 Temperature 98 F Pulse Rate 96 98 97 Respiratory Rate 14 Blood Pressure 99/69 L Pulse Oximetry 100 Oxygen Delivery 03/11/24 08:00 03/11/24 10:00 03/11/24 10:00 Temperature Pulse Rate 97 102 H 102 H Respiratory Rate 13 15 Blood Pressure Pulse Oximetry 99 99 Oxygen Delivery Room Air 03/11/24 12:00 03/11/24 12:00 Temperature Pulse Rate 102 H 102 H Respiratory Rate 13 13 Blood Pressure 99/70 L Pulse Oximetry 100 100 Oxygen Delivery Room Air Intake/Output Intake/Output: Intake & Output 03/08/24 03/09/24 03/10/24 03/11/24 23:59 23:59 23:59 23:59 Intake Total 5146.4 1168.9 Output Total 1400 600 Balance 3746.4 568.9 Meds/Results Medications: Active Medications Generic Name Dose Route Start Last Admin Trade Name Freq PRN Reason Stop Dose Admin Acetaminophen 650 mg 03/10/24 09:55 03/10/24 16:10 Acetaminophen 325 Mg Tablet PO 650 mg Q4H PRN Administration Headache, Mild Pain or Fever Dextrose 12.5 gm 03/10/24 07:25 Dextrose 50% 25 Gm/50 Ml Syringe IV PUSH PRN PRN Hypoglycemia Protocol Glucagon 1 mg 03/10/24 07:25 Glucagon For Inj 1 Mg Vial IM PRN PRN Hypoglycemia Protocol Glucose 15 gm 03/10/24 07:25 Glucose Oral Gel 15 Gm Of Glucse In 37.5 Gm Tube PO PRN PRN Hypoglycemia Protocol Dextrose 1,000 mls @ 100 mls/hr 03/10/24 07:25 Dextrose 5% 1,000 Ml IVPB PRN PRN Hypoglycemia Protocol Insulin Aspart 4 units 03/11/24 12:00 03/11/24 11:54 Insulin Aspart (*Bkc) 100 Units/Ml 0.067 units/kg (4 units) 4 units SUB-Q Administration TIDWM EVA Insulin Aspart 2 - 5 units 03/11/24 12:00 03/11/24 11:56 Insulin Aspart (*Bkc) 100 Units/Ml SUB-Q 2 units TIDWM EVA Administration Protocol Insulin Aspart 1 - 2 units 03/11/24 21:00 Insulin Aspart (*Bkc) 100 Units/Ml SUB-Q HS EVA Protocol Insulin Glargine 15 units 03/11/24 09:00 03/11/24 08:25 Insulin Glargine (*Bkc) 100 Units/Ml SUB-Q 15 units QAM EVA Administration Radiology Results: ITS Impressions Chest X-Ray 03/10/24 06:10 IMPRESSION: 1. No acute cardiopulmonary disease. Chest CTA 03/10/24 07:04 IMPRESSION: 1. No pulmonary embolus. Sensitivity is severely decreased by motion artifact. Labs Labs: Laboratory Results - last 24 hr 03/10/24 03/10/24 03/10/24 13:00 13:05 13:58 WBC RBC Hgb Hct MCV MCH MCHC RDW Plt Count MPV Immature Gran % (Auto) Neut % (Auto) Lymph % (Auto) [place] % (Auto) Eos % (Auto) Baso % (Auto) Lymph # (Auto) [place] # (Auto) Eos # (Auto) Baso # (Auto) Abs Immat Gran (auto) Absolute Neuts (auto) Absolute Nucleated RBC Nucleated RBC % Sodium 133 L Potassium 3.9 Chloride 107 Carbon Dioxide 6 L Anion Gap 20 H BUN 8 Creatinine 0.40 L Estim Creat Clear Calc Not Reportable Estimated GFR > 60 Glucose 207 H POC Capillary Glucose 182 H 236 H Hemoglobin A1c Calcium 7.1 L Phosphorus Magnesium Total Bilirubin AST ALT Alkaline Phosphatase Total Protein Albumin 03/10/24 03/10/24 03/10/24 14:59 16:07 16:57 WBC RBC Hgb Hct MCV MCH MCHC RDW Plt Count MPV Immature Gran % (Auto) Neut % (Auto) Lymph % (Auto) [place] % (Auto) Eos % (Auto) Baso % (Auto) Lymph # (Auto) [place] # (Auto) Eos # (Auto) Baso # (Auto) Abs Immat Gran (auto) Absolute Neuts (auto) Absolute Nucleated RBC Nucleated RBC % Sodium Potassium Chloride Carbon Dioxide Anion Gap BUN Creatinine Estim Creat Clear Calc Estimated GFR Glucose POC Capillary Glucose 252 H 241 H 243 H Hemoglobin A1c Calcium Phosphorus Magnesium Total Bilirubin AST ALT Alkaline Phosphatase Total Protein Albumin 03/10/24 03/10/24 03/10/24 17:24 18:08 18:54 WBC RBC Hgb Hct MCV MCH MCHC RDW Plt Count MPV Immature Gran % (Auto) Neut % (Auto) Lymph % (Auto) [place] % (Auto) Eos % (Auto) Baso % (Auto) Lymph # (Auto) [place] # (Auto) Eos # (Auto) Baso # (Auto) Abs Immat Gran (auto) Absolute Neuts (auto) Absolute Nucleated RBC Nucleated RBC % Sodium 132 L Potassium 3.2 L Chloride 107 Carbon Dioxide 10 L Anion Gap 15 H BUN 6 L Creatinine 0.40 L Estim Creat Clear Calc Not Reportable Estimated GFR > 60 Glucose 242 H POC Capillary Glucose 245 H 232 H Hemoglobin A1c Calcium 8.3 L Phosphorus Magnesium Total Bilirubin AST ALT Alkaline Phosphatase Total Protein Albumin 03/10/24 03/10/24 03/10/24 19:40 20:50 21:20 WBC RBC Hgb Hct MCV MCH MCHC RDW Plt Count MPV Immature Gran % (Auto) Neut % (Auto) Lymph % (Auto) [place] % (Auto) Eos % (Auto) Baso % (Auto) Lymph # (Auto) [place] # (Auto) Eos # (Auto) Baso # (Auto) Abs Immat Gran (auto) Absolute Neuts (auto) Absolute Nucleated RBC Nucleated RBC % Sodium 133 L Potassium 3.9 Chloride 107 Carbon Dioxide 12 L Anion Gap 14 H BUN 5 L Creatinine 0.40 L Estim Creat Clear Calc Not Reportable Estimated GFR > 60 Glucose 230 H POC Capillary Glucose 272 H 233 H Hemoglobin A1c > 14.0 H Calcium 8.2 L Phosphorus Magnesium Total Bilirubin AST ALT Alkaline Phosphatase Total Protein Albumin 03/10/24 03/10/24 03/10/24 21:50 22:58 23:57 WBC RBC Hgb Hct MCV MCH MCHC RDW Plt Count MPV Immature Gran % (Auto) Neut % (Auto) Lymph % (Auto) [place] % (Auto) Eos % (Auto) Baso % (Auto) Lymph # (Auto) [place] # (Auto) Eos # (Auto) Baso # (Auto) Abs Immat Gran (auto) Absolute Neuts (auto) Absolute Nucleated RBC Nucleated RBC % Sodium Potassium Chloride Carbon Dioxide Anion Gap BUN Creatinine Estim Creat Clear Calc Estimated GFR Glucose POC Capillary Glucose 210 H 198 H 213 H Hemoglobin A1c Calcium Phosphorus Magnesium Total Bilirubin AST ALT Alkaline Phosphatase Total Protein Albumin 03/11/24 03/11/24 03/11/24 00:53 01:15 01:58 WBC RBC Hgb Hct MCV MCH MCHC RDW Plt Count MPV Immature Gran % (Auto) Neut % (Auto) Lymph % (Auto) [place] % (Auto) Eos % (Auto) Baso % (Auto) Lymph # (Auto) [place] # (Auto) Eos # (Auto) Baso # (Auto) Abs Immat Gran (auto) Absolute Neuts (auto) Absolute Nucleated RBC Nucleated RBC % Sodium 133 L Potassium 4.3 Chloride 109 H Carbon Dioxide 15 L Anion Gap 9 BUN 4 L Creatinine 0.40 L Estim Creat Clear Calc Not Reportable Estimated GFR > 60 Glucose 217 H POC Capillary Glucose 227 H 224 H Hemoglobin A1c Calcium 8.0 L Phosphorus Magnesium Total Bilirubin AST ALT Alkaline Phosphatase Total Protein Albumin 03/11/24 03/11/24 03/11/24 02:56 04:01 05:03 WBC RBC Hgb Hct MCV MCH MCHC RDW Plt Count MPV Immature Gran % (Auto) Neut % (Auto) Lymph % (Auto) [place] % (Auto) Eos % (Auto) Baso % (Auto) Lymph # (Auto) [place] # (Auto) Eos # (Auto) Baso # (Auto) Abs Immat Gran (auto) Absolute Neuts (auto) Absolute Nucleated RBC Nucleated RBC % Sodium Potassium Chloride Carbon Dioxide Anion Gap BUN Creatinine Estim Creat Clear Calc Estimated GFR Glucose POC Capillary Glucose 222 H 228 H 207 H Hemoglobin A1c Calcium Phosphorus Magnesium Total Bilirubin AST ALT Alkaline Phosphatase Total Protein Albumin 03/11/24 03/11/24 03/11/24 05:25 06:47 08:00 WBC 8.0 RBC 3.80 L Hgb 12.0 D Hct 35.8 L MCV 94.2 D MCH 31.6 MCHC 33.5 RDW 13.3 Plt Count 180 MPV 9.7 Immature Gran % (Auto) 1.3 H Neut % (Auto) 51.0 Lymph % (Auto) 37.6 [place] % (Auto) 8.1 Eos % (Auto) 1.5 Baso % (Auto) 0.5 Lymph # (Auto) 3.01 [place] # (Auto) 0.7 H Eos # (Auto) 0.1 Baso # (Auto) 0.0 Abs Immat Gran (auto) 0.10 H Absolute Neuts (auto) 4.1 Absolute Nucleated RBC 0.000 Nucleated RBC % 0.0 Sodium 135 L Potassium 4.1 Chloride 110 H Carbon Dioxide 14 L Anion Gap 11 BUN 4 L Creatinine 0.30 L Estim Creat Clear Calc Not Reportable Estimated GFR > 60 Glucose 236 H POC Capillary Glucose 246 H 272 H Hemoglobin A1c Calcium 7.9 L Phosphorus 1.6 L Magnesium 1.7 Total Bilirubin 0.3 AST 13 L ALT 10 Alkaline Phosphatase 58 Total Protein 6.0 L Albumin 2.7 L 03/11/24 03/11/24 03/11/24 09:14 10:22 11:52 WBC RBC Hgb Hct MCV MCH MCHC RDW Plt Count MPV Immature Gran % (Auto) Neut % (Auto) Lymph % (Auto) [place] % (Auto) Eos % (Auto) Baso % (Auto) Lymph # (Auto) [place] # (Auto) Eos # (Auto) Baso # (Auto) Abs Immat Gran (auto) Absolute Neuts (auto) Absolute Nucleated RBC Nucleated RBC % Sodium Potassium Chloride Carbon Dioxide Anion Gap BUN Creatinine Estim Creat Clear Calc Estimated GFR Glucose POC Capillary Glucose 224 H 278 H 222 H Hemoglobin A1c Calcium Phosphorus Magnesium Total Bilirubin AST ALT Alkaline Phosphatase Total Protein Albumin
--- NOTE | 2024-03-11 14:32 | PC.NURSE ---
Report given to ANGELINE Winkler with 3 med-surg at 1433. All questions answered and plan of care reviewed. Patient to go to room 311.
[2024-03-11 15:53] LABS: Glucose Point of Care 240 mg/dl (65-105)
[2024-03-11 16:46] LABS: Glucose Point of Care 224 mg/dl (65-105)
[2024-03-11 20:50] LABS: Glucose Point of Care 210 mg/dl (65-105)
[2024-03-12 06:00] VITALS: BP 107/72; PULSE 109; RESP 20; TEMP 36.4; O2SAT 100
[2024-03-12 06:47] LABS: Hematocrit 36.2 % (37.0-47.0); Hemoglobin 12.5 g/dL (12.0-15.0); Mean Corpuscular HGB Conc 34.5 g/dl (32-36); Mean Corpuscular Hemoglobin 32.5 pg (26-34); Mean Platelet Volume 9.4 fl (7.4-10.4); Platelet Count Result 153 k/mm3 (150-375); Red Blood Count 3.85 M/mm3 (4.2-5.4); Red Cell Distribution Width 13.5 % (11.5-14.5); White Blood Count 4.2 K/mm3 (4.5-10.0)
[2024-03-12 07:00] LABS: Alanine Aminotransferase 12 U/L (6-35); Albumin Level 2.6 g/dL (3.5-5.1); Alkaline Phosphatase 55 U/L (38-126); Anion Gap 11 mmol/L (4-12); Aspartate Amino Transferase 17 U/L (14-36); Bilirubin,Total 0.4 mg/dL (0.2-1.3); Blood Urea Nitrogen 5 mg/dL (7-17); Calcium 7.7 mg/dL (8.4-10.2); Carbon Dioxide 16 mmol/L (22-30); Chloride 108 mmol/L (98-107); Estimated Glomerular Filt Rate > 60; Glucose 198 mg/dL (65-110); Magnesium 1.5 mg/dL (1.6-2.3); Phosphorus 2.4 mg/dL (2.5-4.5); Potassium 3.6 mmol/L (3.4-5.0); Sodium 135 mmol/L (137-145)
[2024-03-12 07:47] LABS: Glucose Point of Care 218 mg/dl (65-105)
[2024-03-12 08:00] VITALS: O2SAT 98
[2024-03-12] MEDS: INSULIN GLARGINE (*BKC) 100 UNITS/ML 15 UNITS SUB-Q (08:05)
[2024-03-12] MEDS: INSULIN ASPART (*BKC) 100 UNITS/ML SUB-Q ×6 (08:05→21:27)
[2024-03-12 11:37] LABS: Glucose Point of Care 186 mg/dl (65-105)
[2024-03-12 14:00] VITALS: BP 101/70; PULSE 101; RESP 20; TEMP 36.8; O2SAT 97
--- NOTE | 2024-03-12 14:11 | P.PNIM_ITS ---
Progress Note: A&P Assessment and Plan (1) DKA (diabetic ketoacidosis): Qualifiers: Diabetes mellitus complication detail: without coma Diabetes mellitus type: other specified (including [place]) Qualified Code(s): E13.10 - Other specified diabetes mellitus with ketoacidosis without coma Code(s): E11.10 - Type 2 diabetes mellitus with ketoacidosis without coma Status: Acute Assessment and Plan: AG closed. Off iv insulin To medical floor Needs insulin pump and CGM piror to discharge, life skills educator to arrange 03/13 (d/w [facility] medicare insurance specialist 03/12) (2) Dehydration: Code(s): E86.0 - Dehydration Status: Acute Assessment and Plan: Resolved (3) Acidosis: Code(s): E87.20 - Acidosis, unspecified Status: Acute Assessment and Plan: DKA resolved (4) Hypokalemia: Code(s): E87.6 - Hypokalemia Status: Acute Assessment and Plan: Resolved (5) Chest pressure: Code(s): R07.89 - Other chest pain Status: Acute Assessment and Plan: Noncardiac in nature Chest CTA negative Now resolved (6) Hypomagnesemia: Code(s): E83.42 - Hypomagnesemia Status: Acute Assessment and Plan: 03/02 1.5, Mg 1 g IV ordered (7) Protein-calorie malnutrition, moderate: Code(s): E44.0 - Moderate protein-calorie malnutrition Status: Acute Assessment and Plan: Albumin 2.9 Encourage PO nutrition Subjective Date/time seen: 03/12/24 14:11 Interval history: Feeling good. Tolerating diet. Review of Systems Review of Systems: All systems reviewed & are unremarkable except as noted in HPI and below Exam Narrative: General: Pt is alert awake and in NAD Lungs/Chest: Trachea central Clear BS B/L, No crackles or wheezing. Cardiac: RRR. Normal S1 S2. No murmurs Circulation: Pedal pulses are intact and symmetrical. Abdomen: Normal bowel sounds.. Soft. NT. ND. Extremities: No clubbing, cyanosis or edema. Warm : Gutiérrez in place Neurologic: Follows commands. Moves all 4 extremities PERRL AO x 3 Skin: No Rash Objective Data Vital Signs Vital Signs: Vital Signs - 24 hr 03/11/24 15:25 03/11/24 20:58 03/12/24 06:00 Temperature 97.8 F 97.6 F 97.6 F Pulse Rate 97 96 109 H Respiratory Rate 16 20 20 Blood Pressure 100/59 L 108/70 107/72 Pulse Oximetry 99 100 100 Oxygen Delivery 03/12/24 08:00 03/12/24 08:00 Temperature Pulse Rate Respiratory Rate Blood Pressure Pulse Oximetry 98 Oxygen Delivery Room Air Room Air Intake/Output Intake/Output: Intake & Output 03/09/24 03/10/24 03/11/24 03/12/24 23:59 23:59 23:59 23:59 Intake Total 5146.4 1608.9 1405 Output Total 1400 600 Balance 3746.4 1008.9 1405 Meds/Results Medications: Active Medications Generic Name Dose Route Start Last Admin Trade Name Freq PRN Reason Stop Dose Admin Acetaminophen 650 mg 03/10/24 09:55 03/10/24 16:10 Acetaminophen 325 Mg Tablet PO 650 mg Q4H PRN Administration Headache, Mild Pain or Fever Dextrose 12.5 gm 03/10/24 07:25 Dextrose 50% 25 Gm/50 Ml Syringe IV PUSH PRN PRN Hypoglycemia Protocol Glucagon 1 mg 03/10/24 07:25 Glucagon For Inj 1 Mg Vial IM PRN PRN Hypoglycemia Protocol Glucose 15 gm 03/10/24 07:25 Glucose Oral Gel 15 Gm Of Glucse In 37.5 Gm Tube PO PRN PRN Hypoglycemia Protocol Dextrose 1,000 mls @ 100 mls/hr 03/10/24 07:25 Dextrose 5% 1,000 Ml IVPB PRN PRN Hypoglycemia Protocol Insulin Aspart 4 units 03/11/24 12:00 03/12/24 12:05 Insulin Aspart (*Bkc) 100 Units/Ml 0.067 units/kg (4 units) 4 units SUB-Q Administration TIDWM EVA Insulin Aspart 2 - 5 units 03/11/24 12:00 03/12/24 12:03 Insulin Aspart (*Bkc) 100 Units/Ml SUB-Q Not Given TIDWM [facility] Protocol Insulin Aspart 1 - 2 units 03/11/24 21:00 03/11/24 20:40 Insulin Aspart (*Bkc) 100 Units/Ml SUB-Q 1 units HS EVA Administration Protocol Insulin Glargine 15 units 03/11/24 09:00 03/12/24 08:05 Insulin Glargine (*Bkc) 100 Units/Ml SUB-Q 15 units QAM EVA Administration Radiology Results: ITS Impressions Chest X-Ray 03/10/24 06:10 IMPRESSION: 1. No acute cardiopulmonary disease. Chest CTA 03/10/24 07:04 IMPRESSION: 1. No pulmonary embolus. Sensitivity is severely decreased by motion artifact. Labs Labs: Laboratory Results - last 24 hr 03/11/24 03/11/24 03/11/24 15:51 16:43 20:35 WBC RBC Hgb Hct MCV MCH MCHC RDW Plt Count MPV Sodium Potassium Chloride Carbon Dioxide Anion Gap BUN Creatinine Estim Creat Clear Calc Estimated GFR Glucose POC Capillary Glucose 240 H 224 H 210 H Calcium Phosphorus Magnesium Total Bilirubin AST ALT Alkaline Phosphatase Total Protein Albumin 03/12/24 03/12/24 03/12/24 06:34 07:37 11:31 WBC 4.2 L RBC 3.85 L Hgb 12.5 Hct 36.2 L MCV 94.0 MCH 32.5 MCHC 34.5 RDW 13.5 Plt Count 153 MPV 9.4 Sodium 135 L Potassium 3.6 Chloride 108 H Carbon Dioxide 16 L Anion Gap 11 BUN 5 L Creatinine 0.40 L Estim Creat Clear Calc Not Reportable Estimated GFR > 60 Glucose 198 H POC Capillary Glucose 218 H 186 H Calcium 7.7 L Phosphorus 2.4 L Magnesium 1.5 L Total Bilirubin 0.4 AST 17 ALT 12 Alkaline Phosphatase 55 Total Protein 5.0 L Albumin 2.6 L
[2024-03-12] MEDS: MAGNESIUM SULF 1 GM/D5W 100 ML 1 GM/100 ML BAG IVPB (14:47)
[2024-03-12] MEDS: ACETAMINOPHEN 325 MG TABLET 650 MG PO (16:22)
[2024-03-12 16:40] LABS: Glucose Point of Care 237 mg/dl (65-105)
[2024-03-12 20:11] LABS: Glucose Point of Care 228 mg/dl (65-105)
[2024-03-12 20:40] VITALS: BP 104/63; PULSE 99; RESP 16; TEMP 36.4; O2SAT 100
[2024-03-13 05:43] VITALS: BP 100/68; PULSE 100; RESP 16; TEMP 36.4; O2SAT 100
[2024-03-13 07:17] LABS: Hematocrit 32.9 % (37.0-47.0); Hemoglobin 11.2 g/dL (12.0-15.0); Mean Platelet Volume 9.7 fl (7.4-10.4); Platelet Count Result 139 k/mm3 (150-375); Red Cell Distribution Width 13.3 % (11.5-14.5); White Blood Count 3.9 K/mm3 (4.5-10.0)
[2024-03-13 07:37] LABS: Alanine Aminotransferase 11 U/L (6-35); Albumin Level 2.5 g/dL (3.5-5.1); Alkaline Phosphatase 51 U/L (38-126); Anion Gap 7 mmol/L (4-12); Aspartate Amino Transferase 16 U/L (14-36); Bilirubin,Total 0.3 mg/dL (0.2-1.3); Blood Urea Nitrogen 6 mg/dL (7-17); Calcium 7.8 mg/dL (8.4-10.2); Carbon Dioxide 24 mmol/L (22-30); Chloride 106 mmol/L (98-107); Estimated Glomerular Filt Rate > 60; Glucose 180 mg/dL (65-110); Magnesium 1.7 mg/dL (1.6-2.3); Phosphorus 2.9 mg/dL (2.5-4.5); Potassium 3.8 mmol/L (3.4-5.0); Sodium 137 mmol/L (137-145)
[2024-03-13 07:58] LABS: Reference Lab Test Result >14.0%
[2024-03-13 08:00] LABS: Glucose Point of Care 214 mg/dl (65-105)
[2024-03-13] MEDS: INSULIN ASPART (*BKC) 100 UNITS/ML SUB-Q ×2 (08:16)
[2024-03-13] MEDS: INSULIN GLARGINE (*BKC) 100 UNITS/ML 15 UNITS SUB-Q (08:17)
--- NOTE | 2024-03-13 09:14 | PM.IMPN ---
Progress Note: A&P Assessment and Plan (1) DKA (diabetic ketoacidosis): Qualifiers: Diabetes mellitus complication detail: without coma Diabetes mellitus type: other specified (including [place]) Qualified Code(s): E13.10 - Other specified diabetes mellitus with ketoacidosis without coma Code(s): E11.10 - Type 2 diabetes mellitus with ketoacidosis without coma Status: Acute (2) Dehydration: Code(s): E86.0 - Dehydration Status: Acute Plan (1) DKA (diabetic ketoacidosis): Qualifiers: Diabetes mellitus complication detail: without coma Diabetes mellitus type: other specified (including [place]) Qualified Code(s): E13.10 - Other specified diabetes mellitus with ketoacidosis without coma Code(s): E11.10 - Type 2 diabetes mellitus with ketoacidosis without coma Status: Acute Assessment and Plan: AG closed. Off iv insulin To medical floor Needs insulin pump and CGM piror to discharge, consumer educator to arrange 03/13 (d/w [facility] health care law specialist 03/12) (2) Dehydration: Code(s): E86.0 - Dehydration Status: Acute Assessment and Plan: Resolved (3) Acidosis: Code(s): E87.20 - Acidosis, unspecified Status: Acute Assessment and Plan: DKA resolved (4) Hypokalemia: Code(s): E87.6 - Hypokalemia Status: Acute Assessment and Plan: Resolved (5) Chest pressure: Code(s): R07.89 - Other chest pain Status: Acute Assessment and Plan: Noncardiac in nature Chest CTA negative Now resolved (6) Hypomagnesemia: Code(s): E83.42 - Hypomagnesemia Status: Acute Assessment and Plan: 03/02 1.5, Mg 1 g IV ordered (7) Protein-calorie malnutrition, moderate: Code(s): E44.0 - Moderate protein-calorie malnutrition Status: Acute Assessment and Plan: Albumin 2.9 Encourage PO nutrition Subjective Date/time seen: 03/13/24 09:14 Exam Narrative: GENERAL: Pleasant, in no acute distress. Well-nourished. - EYES: EOMI. Anicteric. - HENT: Moist mucous membranes. - LUNGS: Clear to auscultation bilaterally, no wheezing, rhonchi, or rales. - CARDIOVASCULAR: Regular rate and rhythm. No murmur. No JVD. - ABDOMEN: Soft, non-tender and non-distended. No palpable masses. - EXTREMITIES: No edema. Peripheral pulses 2+. Non-tender. - NEUROLOGIC: No focal neurological deficits. CN II-XII grossly intact. - PSYCHIATRIC: Awake, Alert and oriented x 3. Appropriate mood and affect. - SKIN: No rashes or lesions. Warm. - LYMPH: No cervical lymphadenopathy. Objective Data Vital Signs Vital Signs: Vital Signs - 24 hr 03/12/24 14:00 03/12/24 20:40 03/12/24 20:00 Temperature 98.3 F 97.5 F L Pulse Rate 101 H 99 Respiratory Rate 20 16 Blood Pressure 101/70 104/63 Pulse Oximetry 97 100 Oxygen Delivery Room Air 03/13/24 05:43 03/13/24 08:00 Temperature 97.5 F L Pulse Rate 100 Respiratory Rate 16 Blood Pressure 100/68 Pulse Oximetry 100 Oxygen Delivery Room Air Intake/Output Intake/Output: Intake & Output 03/10/24 03/11/24 03/12/24 03/13/24 23:59 23:59 23:59 23:59 Intake Total 5146.4 1608.9 2745 150 Output Total 1400 600 Balance 3746.4 1008.9 2745 150 Meds/Results Medications: Active Medications Generic Name Dose Route Start Last Admin Trade Name Freq PRN Reason Stop Dose Admin Acetaminophen 650 mg 03/10/24 09:55 03/12/24 16:22 Acetaminophen 325 Mg Tablet PO 650 mg Q4H PRN Administration Headache, Mild Pain or Fever Dextrose 12.5 gm 03/10/24 07:25 Dextrose 50% 25 Gm/50 Ml Syringe IV PUSH PRN PRN Hypoglycemia Protocol Glucagon 1 mg 03/10/24 07:25 Glucagon For Inj 1 Mg Vial IM PRN PRN Hypoglycemia Protocol Glucose 15 gm 03/10/24 07:25 Glucose Oral Gel 15 Gm Of Glucse In 37.5 Gm Tube PO PRN PRN Hypoglycemia Protocol Dextrose 1,000 mls @ 100 mls/hr 03/10/24 07:25 Dextrose 5% 1,000 Ml IVPB PRN PRN Hypoglycemia Protocol Insulin Aspart 4 units 03/11/24 12:00 03/13/24 08:16 Insulin Aspart (*Bkc) 100 Units/Ml 0.067 units/kg (4 units) 4 units SUB-Q Administration TIDWM [facility] Insulin Aspart 2 - 5 units 03/11/24 12:00 03/13/24 08:16 Insulin Aspart (*Bkc) 100 Units/Ml SUB-Q 2 units TIDWM [facility] Administration Protocol Insulin Aspart 1 - 2 units 03/11/24 21:00 03/12/24 21:27 Insulin Aspart (*Bkc) 100 Units/Ml SUB-Q 1 units HS [facility] Administration Protocol Insulin Glargine 15 units 03/11/24 09:00 03/13/24 08:17 Insulin Glargine (*Bkc) 100 Units/Ml SUB-Q 15 units QAM [facility] Administration Radiology Results: ITS Impressions Chest X-Ray 03/10/24 06:10 IMPRESSION: 1. No acute cardiopulmonary disease. Chest CTA 03/10/24 07:04 IMPRESSION: 1. No pulmonary embolus. Sensitivity is severely decreased by motion artifact. Labs Labs: Laboratory Results - last 24 hr 03/10/24 03/12/24 03/12/24 05:11 11:31 16:33 WBC RBC Hgb Hct MCV MCH MCHC RDW Plt Count MPV Sodium Potassium Chloride Carbon Dioxide Anion Gap BUN Creatinine Estim Creat Clear Calc Estimated GFR Glucose POC Capillary Glucose 186 H 237 H Calcium Phosphorus Magnesium Total Bilirubin AST ALT Alkaline Phosphatase Total Protein Albumin Ref Lab Test Name Hgb a1c Ref Lab Test Result >14.0% 03/12/24 03/13/24 03/13/24 20:03 07:00 07:57 WBC 3.9 L RBC 3.50 L Hgb 11.2 L Hct 32.9 L MCV 94.0 MCH 32.0 MCHC 34.0 RDW 13.3 Plt Count 139 L MPV 9.7 Sodium 137 Potassium 3.8 Chloride 106 Carbon Dioxide 24 Anion Gap 7 BUN 6 L Creatinine 0.30 L Estim Creat Clear Calc Not Reportable Estimated GFR > 60 Glucose 180 H POC Capillary Glucose 228 H 214 H Calcium 7.8 L Phosphorus 2.9 Magnesium 1.7 Total Bilirubin 0.3 AST 16 ALT 11 Alkaline Phosphatase 51 Total Protein 5.0 L Albumin 2.5 L Ref Lab Test Name Ref Lab Test Result
--- NOTE | 2024-03-13 09:17 | PM.DS ---
DS: Admitting Diagnosis Discharge Date 03/13 Admitting Diagnosis (1) DKA (diabetic ketoacidosis): Qualifiers: Diabetes mellitus complication detail: without coma Diabetes mellitus type: other specified (including MO) Qualified Code(s): E13.10 - Other specified diabetes mellitus with ketoacidosis without coma Code(s): E11.10 - Type 2 diabetes mellitus with ketoacidosis without coma Status: Acute (2) Dehydration: Code(s): E86.0 - Dehydration Status: Acute DS: Discharge Diagnosis Discharge Diagnosis (1) DKA (diabetic ketoacidosis): Qualifiers: Diabetes mellitus complication detail: without coma Diabetes mellitus type: other specified (including MO) Qualified Code(s): E13.10 - Other specified diabetes mellitus with ketoacidosis without coma Code(s): E11.10 - Type 2 diabetes mellitus with ketoacidosis without coma Status: Acute (2) Dehydration: Code(s): E86.0 - Dehydration Status: Acute DS: Summary Hospital Course Hospital Course: Reaching peak: This is a 29-year-old female, with history of anxiety and diabetes, brought in by EMS from home for reports of a ?panic attack. ? The patient states over the past day, she developed nausea nonbloody vomiting and nonbloody diarrhea. In the past 2-3 hours, she developed the sensation of difficulty breathing as well as a sharp substernal chest pain that does not radiate. She states she has not taken her medications. ER was found to be in DKA. A CTA of the chest was done which was negative for any PE EKG shows sinus tachycardia. Patient has significant metabolic acidosis. She had elevated be to hydroxybutyrate, blood glucose. She also had elevated WBC and hemoglobin suggestive of hemoconcentration. Patient was given IV fluid bolus started on IV fluids and insulin infusion and being admitted to ICU for further evaluation management.Patient was diagnosed with diabetes in 2019 and was on metformin. Patient 1st time on March 05 where she needed insulin during the end of the but during her 2nd in July 2022 she was needing insulin from the beginning. After giving to the 2nd kid patient reports her blood sugar normalized and did not take any medications. Yesterday she started having increased labored breathing, abdominal pain and came to ER. Patient is currently transitioned to ICU. The following med issues have been addressed during hospitalization (1) DKA (diabetic ketoacidosis): Qualifiers: Diabetes mellitus complication detail: without coma Diabetes mellitus type: other specified (including MO) Qualified Code(s): E13.10 - Other specified diabetes mellitus with ketoacidosis without coma Code(s): E11.10 - Type 2 diabetes mellitus with ketoacidosis without coma Status: Acute Assessment and Plan: AG closed. Off iv insulin To medical floor Glucose is controlled and target, Patient will benefit from insulin pump, refer to sleeve separator per primary care doctor Consulted nurse informatics educator On discharge, continue Lantus 18 unit q.a.m., aspart for unit before each meal, continue insulin sliding scale a.c. and q.h.s. with protocol (2) Dehydration: Code(s): E86.0 - Dehydration Status: Acute Assessment and Plan: Resolved (3) Acidosis: Code(s): E87.20 - Acidosis, unspecified Status: Acute Assessment and Plan: DKA resolved (4) Hypokalemia: Code(s): E87.6 - Hypokalemia Status: Acute Assessment and Plan: Resolved (5) Chest pressure: Code(s): R07.89 - Other chest pain Status: Acute Assessment and Plan: Noncardiac in nature Chest CTA negative Now resolved (6) Hypomagnesemia: Code(s): E83.42 - Hypomagnesemia Status: Acute Assessment and Plan: 03/02 1.5, Mg 1 g IV ordered (7) Protein-calorie malnutrition, moderate: Code(s): E44.0 - Moderate protein-calorie malnutrition Status: Acute Assessment and Plan: Albumin 2.9 Encourage PO nutrition Time Spent with Patient Time attestation: Total time spent providing and/or coordinating discharge services: Exam Narrative: GENERAL: Pleasant, in no acute distress. Well-nourished. - EYES: EOMI. Anicteric. - HENT: Moist mucous membranes. - LUNGS: Clear to auscultation bilaterally, no wheezing, rhonchi, or rales. - CARDIOVASCULAR: Regular rate and rhythm. No murmur. No JVD. - ABDOMEN: Soft, non-tender and non-distended. No palpable masses. - EXTREMITIES: No edema. Peripheral pulses 2+. Non-tender. - NEUROLOGIC: No focal neurological deficits. CN II-XII grossly intact. - PSYCHIATRIC: Awake, Alert and oriented x 3. Appropriate mood and affect. - SKIN: No rashes or lesions. Warm. - LYMPH: No cervical lymphadenopathy. DS: Data Data Completed and Pending Labs on day of discharge: Labs from last 24 hours 03/13/24 03/13/24 03/12/24 07:57 07:00 20:03 WBC 3.9 L RBC 3.50 L Hgb 11.2 L Hct 32.9 L MCV 94.0 MCH 32.0 MCHC 34.0 RDW 13.3 Plt Count 139 L MPV 9.7 Sodium 137 Potassium 3.8 Chloride 106 Carbon Dioxide 24 Anion Gap 7 BUN 6 L Creatinine 0.30 L Estim Creat Clear Calc Not Reportable Estimated GFR > 60 Glucose 180 H POC Capillary Glucose 214 H 228 H Calcium 7.8 L Phosphorus 2.9 Magnesium 1.7 Total Bilirubin 0.3 AST 16 ALT 11 Alkaline Phosphatase 51 Total Protein 5.0 L Albumin 2.5 L Ref Lab Test Name Ref Lab Test Result 03/12/24 03/12/24 03/10/24 16:33 11:31 05:11 WBC RBC Hgb Hct MCV MCH MCHC RDW Plt Count MPV Sodium Potassium Chloride Carbon Dioxide Anion Gap BUN Creatinine Estim Creat Clear Calc Estimated GFR Glucose POC Capillary Glucose 237 H 186 H Calcium Phosphorus Magnesium Total Bilirubin AST ALT Alkaline Phosphatase Total Protein Albumin Ref Lab Test Name Hgb a1c Ref Lab Test Result >14.0% Discharge Plan Discharge Attending physician on discharge: Guevara Das Consulting providers: Denise Mcgowan; Boom Mckinney Discharging Clinician: Guevara Das Patient Disposition: Home, Self-Care Activity: as tolerated Diet: diabetic Patient Instructions: Antibiotic Form Stand Alone Forms: General Discharge Information Follow-up/Referrals: Dipak,ENID Goins [Primary Care Provider] - (Patient needs to see primary care doctor in 1 week, referral to sleeve separator per PCP) Discharge Medications: New insulin glargine [Lantus U-100 Insulin] 100 unit/mL Solution 18 unit subcut QAM Qty: 10 1RF insulin aspart U-100 [Novolog U-100 Insulin aspart] 100 unit/mL Solution 4 unit subcut TIDWM Qty: 10 1RF insulin aspart U-100 [Novolog U-100 Insulin aspart] 100 unit/mL Solution 2 - 5 unit subcut TIDWM Qty: 10 1RF Protocol: Insulin Corrective Low-Dose Condition: glucose < 70 mg/dl Dose/Route: Follow Hypoglycemia Order Condition: glucose 70-200 mg/dl Dose/Route: No additional insulin Condition: glucose 201-250 mg/dl Dose/Route: 2 units sub-Q Condition: glucose 251-300 mg/dl Dose/Route: 3 units sub-Q Condition: glucose 301-350 mg/dl Dose/Route: 4 units sub-Q Condition: glucose 351-400 mg/dl Dose/Route: 5 units sub-Q Condition: glucose > 400 mg/dl Dose/Route: Call Protocol Text: *No Correction Dose at Bedtime* Rx Instructions: Instruction glucose < 70 mg/dl Follow Hypoglycemia Order glucose 70-200 mg/dl No additional insulin glucose 201-250 mg/dl 2 units sub-Q glucose 251-300 mg/dl 3 units sub-Q glucose 301-350 mg/dl 4 units sub-Q glucose 351-400 mg/dl 5 units sub-Q glucose > 400 mg/dl Call insulin aspart U-100 [Novolog U-100 Insulin aspart] 100 unit/mL Solution 1 - 2 unit subcut HS Qty: 10 1RF Protocol: Insulin Corrective Low-Dose Condition: glucose < 70 mg/dl Dose/Route: Follow Hypoglycemia Order Condition: glucose 70-200 mg/dl Dose/Route: No additional insulin Condition: glucose 201-250 mg/dl Dose/Route: 1 units sub-Q Condition: glucose 251-300 mg/dl Dose/Route: 1 units sub-Q Condition: glucose 301-350 mg/dl Dose/Route: 2 units sub-Q Condition: glucose 351-400 mg/dl Dose/Route: 2 units sub-Q Condition: glucose > 400 mg/dl Dose/Route: Call Rx Instructions: Instruction glucose < 70 mg/dl Follow Hypoglycemia Order glucose 70-200 mg/dl No additional insulin glucose 201-250 mg/dl 1 units sub-Q glucose 251-300 mg/dl 1 units sub-Q glucose 301-350 mg/dl 2 units sub-Q glucose 351-400 mg/dl 2 units sub-Q glucose > 400 mg/dl Call Date of admission: 03/10/24 13:42 Primary Care Provider: Dipak,Briseida Admitting Provider: Sam Leahy Attending physician on admission: Sam Leahy Condition: Serious
[2024-03-13 10:05] VITALS: BMI 24.3
== END 2024-03-13 10:57 | disposition home or self-care (01) | DRG 638 ==
LOC: ANHED 07:28 → ANHICU 08:28 → ANH3MEDSUR 03-11 14:50
PROVIDERS: Internal Medicine; Admitting Provider General Practice; Emergency Provider Preventive Medicine Aerospace Medicine; PCP Nurse Practitioner Family; Visit Provider Hospitalist
DX: E11.10 Type 2 diabetes mellitus with ketoacidosis without coma (principal); E44.0 Moderate protein-calorie malnutrition; E86.0 Dehydration; E87.6 Hypokalemia; R07.89 Other chest pain; Z20.822 Contact with and (suspected) exposure to COVID-19; Z28.21 Immunization not carried out because of patient refusal; Z68.24 Body mass index [BMI] 24.0-24.9, adult
CPT/HCPCS: 36415; 71045; 71275; 80048; 80053; 81001; 81025; 82010; 82803; 82948; 83036; 83605; 83735; 84100; 84484; 85025; 85027; 87086; 87637; 87641; 93005; 96365; 96366; 96375; 99285; A9270; G0378; J0613; J1815; J2270; J2405; J3475; J3480; J7030; Q9967